=== PATIENT | male | born 1945 | race Caucasian/White ===

== ENCOUNTER → 2017-12-24 10:08 | Outpatient (CLI) | payer MEDICARE, SELFPAY ==
--- NOTE | 2017-12-24 | DI.CT.S_ITS ---
PROCEDURE: CT CHEST ABD PEL W CON INDICATIONS: ABNORMAL WEIGHT LOSS TECHNIQUE: After the administration of oral and intravenous contrast, 5 mm thick sections acquired from the lung apices to the symphysis. 5 mm coronal and sagittal reformats were performed, with additional 7 mm coronal MIP reformats through the lungs. For radiation dose reduction, the following was used: automated exposure control, adjustment of mA and/or kV according to patient size. COMPARISON: [facility], CT, ABDOMEN/PELVIS WITH CONTRAST, 11/21/2011, 13:02. [facility], CT, ABDOMEN/PELVIS WITH CONTRAST, 11/14/2011, 7:01. [facility], CR, THORACIC SPINE 3 VIEWS, 12/23/2011, 10:32. FINDINGS: Image quality: Excellent. CHEST: Lungs and pleura: No acute airspace opacities. No pleural effusions or pneumothorax. Central and peripheral airways appear patent and normal in caliber. Mediastinum: Heart size is normal. No pericardial effusion. No mediastinal or hilar adenopathy by size criteria. Thoracic aorta and central pulmonary arteries are normal in size. Esophagus is normal in caliber. No hiatal hernia. Chest wall: No axillary or supraclavicular adenopathy by size criteria. Thyroid gland appears normal where well visualized. Areas of spinal vertebral body sclerosis seen by CT scanning is little if any change from the areas of sclerosis seen by plain film imaging of the thoracic spine from 12/23/11. ABDOMEN: Solid organs: Liver is normal in size and enhancement. Gallbladder appears normal. Biliary system is non dilated. Pancreas enhances normally. Spleen is normal in size and enhancement. No adrenal nodules. Kidneys demonstrate normal size and enhancement, without hydronephrosis. Peritoneum and bowel: Bowel loops demonstrate normal wall thickness and caliber. No free fluid or air. Nodes and vessels: No retroperitoneal or mesenteric adenopathy by size criteria. Aorta and inferior vena cava are normal in size. Miscellaneous: No ventral hernias. Scattered areas of sclerosis within the lumbosacral spine vertebral bodies are little if any changed from the comparison abdominal pelvic CT scanning from PELVIS: Genitourinary: Bladder wall thickness is normal. Miscellaneous: No inguinal hernias or adenopathy. Bones: No new suspicious bony lesions. The areas of vertebral body sclerosis at the lumbosacral junction is stable over time with reference to prior CT scanning. No vertebral body compression fractures. IMPRESSION: The thoracic, lumbosacral spine and thoracolumbar junction show unusually dense areas of sclerosis but in a pattern that is little if any change from prior plain film and CT scanning that include the same areas from 2012. Previously successfully treated neoplasm might produce such an appearance. Please correlate clinically for whether prostate carcinoma is present in this patient. Followup by nuclear medicine bone scanning may be warranted. Elsewhere through the chest, abdomen and pelvis no primary or metastatic malignancy is suspected. No chronic infection is found. Dictated by: Akshat Mercado M.D. on 12/24/2017 at 16:16 Approved by: Akshat Mercado M.D. on 12/24/2017 at 16:28
== END ==
PROVIDERS: Visit Provider Internal Medicine
DX: R63.4 Abnormal weight loss (principal)
CPT/HCPCS: 71260; 74177; Q9967

== ENCOUNTER 2018-01-30 05:45 | Emergency (ER) | payer MEDICARE, SELFPAY ==
[2018-01-30] VITALS (7 sets, daily range): BP systolic 97–141; BP diastolic 59–74; PULSE 61–69; RESP 16–24; TEMP 36.6–36.8; O2SAT 93–100
--- NOTE | 2018-01-30 06:07 | DI.RAD.S_ITS ---
PROCEDURE: XR CHEST 1V INDICATIONS: decreased mental status from baseline, dementia hx TECHNIQUE: One view of the chest was acquired. COMPARISON: [facility], CT, CT CHEST ABD PEL W CON, 12/24/2017, 10:50. [facility], CR, CHEST 2 VIEW, 11/29/2015, 9:09. [facility], CR, CHEST 2 VIEW, 04/08/2017, 18:39. FINDINGS: Surgical changes and devices: None. Lungs and pleura: Shallow inspiration. Left basilar opacity may be pneumonia or atelectasis. No pleural effusions or pneumothorax. Mediastinum: Mediastinal contours appear normal. Heart size is normal. Bones and chest wall: No suspicious bony lesions. Overlying soft tissues appear unremarkable. Bilateral shoulder joint degeneration. Superior migration of humeral heads bilaterally suggest rotator cuff tendon tears. IMPRESSION: Left basilar pneumonia or atelectasis. Dictated by: Luann Contreras M.D. on 01/30/2018 at 8:24 Approved by: Luann Contreras M.D. on 01/30/2018 at 8:25
--- NOTE | 2018-01-30 06:07 | DI.CT.S_ITS ---
PROCEDURE: CT HEAD/BRAIN WO CON INDICATIONS: decreased mental status from baseline, dementia hx TECHNIQUE: Noncontrast 4.5 mm thick angled axial sections acquired from the foramen magnum to the vertex, with coronal and sagittal reformats. For radiation dose reduction, the following was used: automated exposure control, adjustment of mA and/or kV according to patient size. COMPARISON: [facility], MR, BRAIN WITHOUT CONTRAST, 08/04/2017, 14:14. [facility], CT, HEAD WITHOUT CONTRAST, 04/08/2017, 6:02. FINDINGS: Image quality: Excellent. CSF spaces: Basal cisterns are patent. No extra-axial fluid collections. The ventricles are symmetric in size and shape. Brain: No intracranial bleeds or masses. There is cerebral volume loss for age, with resultant ventricular and sulcal prominence. There are periventricular and deep white matter chronic small vessel ischemic changes. There is intracranial internal carotid artery atherosclerosis. Skull and face: Calvarium and visualized facial bones appear intact, without suspicious lesions. Sinuses: Mucosal thickening noted in the visualized right maxillary sinus. The mastoids are clear. IMPRESSION: No acute intracranial disease process. Dictated by: Mel Melara MD, PhD on 01/30/2018 at 7:49 Approved by: Mel Melara MD, PhD on 01/30/2018 at 7:53
--- NOTE | 2018-01-30 06:38 | ED.AMS ---
HPI - Altered Mental Status <Maliha Wilson Ilanjovany, DO - Last Filed: 02/02/18 21:20> General Chief Complaint: Altered Mental Status Stated Complaint: Mental Status Change Time Seen by Provider: 01/30/18 05:50 Source: patient and family Mode of arrival: EMS Limitations: altered mental status History of Present Illness HPI narrative: this is a 72-year-old male brought in by his for altered mental status. Patient has a history of baseline dementia according to his he is worse than normal. patient's states it has been about 48 hr, she states that he mostly will say no and not participate in his normal activities. Typically she can get up and walk to the bathroom or into the bedroom. Patient continually says no here in the department and she states at home. No fevers that she is aware of. He has not had any complaints that his nausea, vomiting no GI or urinary symptoms. has not had any other complaints such as difficulty breathing. states she does not think he has particularly more weak but it is difficult for her to tell. Related Data Home Medications Medication Instructions Recorded Confirmed MULTIVITAMIN (#UNI-STRESS) 1 cap PO QDAY #0 11/14/11 12/22/17 simvastatin 40 mg PO HS #0 11/14/11 01/30/18 tamsulosin [Flomax] 0.4 mg PO QDAY #0 11/14/11 01/30/18 melatonin 3 mg PO HS #0 07/15/17 12/22/17 thiamine HCl (vitamin B1) [Vitamin 100 mg PO QDAY #0 07/15/17 12/22/17 B-1] ascorbic acid (vitamin C) 500 mg mg PO cap 11/03/17 12/22/17 capsule cholecalciferol (vitamin D3) 1,000 1,000 unit PO DAILY 11/03/17 12/22/17 unit capsule lutein 20 mg tablet 20 mg PO DAILY 11/03/17 12/22/17 vitamin B complex tablet 1 tab PO DAILY 11/03/17 12/22/17 mirtazapine 30 mg PO DAILY 01/30/18 01/30/18 risperidone 2 mg PO DAILY 01/30/18 01/30/18 Previous Rx's Medication Instructions Recorded escitalopram 20 mg tablet 20 mg PO DAILY #30 tab 01/13/18 quetiapine 100 mg tablet 100 mg PO BEDTIME 30 Days #30 tab 01/13/18 venlafaxine ER 150 mg 150 mg PO DAILY #30 cap 01/23/18 capsule,extended release 24 hr venlafaxine ER 37.5 mg 37.5 mg PO QAM #18 cap 01/23/18 capsule,extended release 24 hr levofloxacin [Levaquin] 500 mg PO DAILY #7 tab 01/30/18 Allergies Allergy/AdvReac Type Severity Reaction Status Date / Time No Known Drug Allergies Allergy Verified 01/30/18 06:04 Exam <Maliha Candelaria, DO - Last Filed: 02/02/18 21:20> Narrative Exam Narrative: GEN: well nourished, well appearing male, alert and oriented x 3, patient appears to be in moderate distress. Patient can tell me his name that he is at the hospital and in [place], says no to everything else even questions that are not yes/no. HEENT: Atraumatic, pupils are equal round reactive to light, extraocular movements are intact, nares are clear, Throat is clear without any exudates, erythema, tonsillar enlargement or uvular deviation, no facial droop,. HEART: Regular rate and rhythm without murmur, clicks, rubs. No carotid bruits, pulses are equal in upper and lower extremities LUNGS:Lungs clear to auscultation, no wheezes, rales, crackles, chest moves symmetrically ABD:bowel sounds normal, soft, non-tender, no guarding, rebound, rigidity, no masses noted, no hepatosplenomegaly :No CVA tenderness MSCL: Non-tender, positive for b/l upper and lower extremity muscle atrophy, pill rolling tremor. NEURO:CN 2-12 intact, sensation normal, reflexes 2/4 upper and lower extremities. Initial Vital Signs Initial Vital Signs: Vital Signs Temperature 97.9 F 01/30/18 05:59 Pulse Rate 65 01/30/18 05:59 Respiratory Rate 18 01/30/18 05:59 Blood Pressure 130/66 01/30/18 05:59 Pulse Oximetry 93 01/30/18 05:59 <Madeline Larkin DO - Last Filed: 01/30/18 19:27> Initial Vital Signs Initial Vital Signs: Vital Signs Temperature 97.9 F 01/30/18 05:59 Pulse Rate 65 01/30/18 05:59 Respiratory Rate 18 01/30/18 05:59 Blood Pressure 130/66 01/30/18 05:59 Pulse Oximetry 93 01/30/18 05:59 Course <Maliha Candelaria, - Last Filed: 02/02/18 21:20> Orders Ordered: Discontinued Medications Escitalopram Oxalate (Lexapro) 10 mg PO NOW ONE Stop: 01/30/18 09:26 Last Admin: 01/30/18 10:43 Dose: 10 mg Sodium Chloride (Normal Saline 0.9%) 1,000 mls @ 1,000 mls/hr IV BOLUS ONE Stop: 01/30/18 08:50 Last Infusion: 01/30/18 09:40 Dose: 0 mls/hr Admin: 01/30/18 08:01 Dose: 1,000 mls/hr Lorazepam (Ativan) 0.5 mg IV NOW ONE Stop: 01/30/18 07:36 Last Admin: 01/30/18 07:49 Dose: 0.5 mg Venlafaxine HCl (Effexor) 37.5 mg PO NOW ONE Stop: 01/30/18 09:26 Last Admin: 01/30/18 10:43 Dose: 37.5 mg Vital Signs - 8 hr 01/30/18 12:15 Blood Pressure [Left Arm] 105/74 <Madeline Larkin DO - Last Filed: 01/30/18 19:27> Orders Ordered: Discontinued Medications Escitalopram Oxalate (Lexapro) 10 mg PO NOW ONE Stop: 01/30/18 09:26 Last Admin: 01/30/18 10:43 Dose: 10 mg Sodium Chloride (Normal Saline 0.9%) 1,000 mls @ 1,000 mls/hr IV BOLUS ONE Stop: 01/30/18 08:50 Last Infusion: 01/30/18 09:40 Dose: 0 mls/hr Admin: 01/30/18 08:01 Dose: 1,000 mls/hr Lorazepam (Ativan) 0.5 mg IV NOW ONE Stop: 01/30/18 07:36 Last Admin: 01/30/18 07:49 Dose: 0.5 mg Venlafaxine HCl (Effexor) 37.5 mg PO NOW ONE Stop: 01/30/18 09:26 Last Admin: 09/28/18 10:43 Dose: 37.5 mg Vital Signs - 8 hr 01/30/18 12:15 Blood Pressure [Left Arm] 105/74 MDM - Altered Mental Status <Maliha Candelaria DO - Last Filed: 02/02/18 21:20> Lab Data Result diagrams: 01/30/18 06:30 01/30/18 06:30 Lab Results 01/30/18 01/30/18 01/30/18 Range/Units 06:08 06:30 06:30 WBC 8.0 (4.5-11.0) X10^3/uL RBC 5.02 (4.5-5.9) X10^6/uL Hgb 17.3 (13.5-17.5) g/dL Hct 50.1 (41-53) % MCV 99.7 (80-100) fL MCH 34.4 H (26-34) PG MCHC 34.5 (30-36) % RDW 14.6 (11.6-14.8) % Plt Count 223 (150-400) X10^3/uL Neut % (Auto) 63.3 (50-75) % Lymph % (Auto) 25.7 (25-40) % Powell % (Auto) 7.2 (3-14) % Eos % (Auto) 3.3 (2-4) % Baso % (Auto) 0.5 (0-2) % Neut # (Auto) 5000 (9960-5809) /uL PT 13.1 H (10.1-12.7) SECONDS INR 1.2 (0.9-1.3) APTT 36 (26.4-36.2) SECONDS Sodium (137-145) mmol/L Potassium (3.4-5.1) mmol/L Chloride (98-107) mmol/L Carbon Dioxide (22-32) mmol/L BUN (9-20) mg/dL Creatinine (0.66-1.25) mg/dL Estimated GFR (>60) mL/min BUN/Creatinine Ratio (6-22) Glucose (80-110) mg/dL Lactate (0.7-2.1) mmol/L Calcium (8.4-10.2) mg/dL Total Bilirubin (0.2-1.3) mg/dL AST (17-59) IU/L ALT (21-72) IU/L Alkaline Phosphatase (38-126) U/L Troponin I (0.01-0.034) ng/mL Total Protein (6.3-8.2) g/dL Albumin (3.5-5.0) g/dL Globulin (1.7-4.1) g/dL Albumin/Globulin Ratio (1.0-2.8) TSH 2.08 (0.47-4.68) uIU/mL 01/30/18 01/30/18 Range/Units 06:30 08:22 WBC (4.5-11.0) X10^3/uL RBC (4.5-5.9) X10^6/uL Hgb (13.5-17.5) g/dL Hct (41-53) % MCV (80-100) fL MCH (26-34) PG MCHC (30-36) % RDW (11.6-14.8) % Plt Count (150-400) X10^3/uL Neut % (Auto) (50-75) % Lymph % (Auto) (25-40) % Powell % (Auto) (3-14) % Eos % (Auto) (2-4) % Baso % (Auto) (0-2) % Neut # (Auto) (2063-5292) /uL PT (10.1-12.7) SECONDS INR (0.9-1.3) APTT (26.4-36.2) SECONDS Sodium 142 (137-145) mmol/L Potassium 4.5 (3.4-5.1) mmol/L Chloride 104 (98-107) mmol/L Carbon Dioxide 28 (22-32) mmol/L BUN 15 (9-20) mg/dL Creatinine 0.90 (0.66-1.25) mg/dL Estimated GFR > 60.0 (>60) mL/min BUN/Creatinine Ratio 16.7 (6-22) Glucose 96 (80-110) mg/dL Lactate 1.5 (0.7-2.1) mmol/L Calcium 9.5 (8.4-10.2) mg/dL Total Bilirubin 0.5 (0.2-1.3) mg/dL AST 31 (17-59) IU/L ALT 23 (21-72) IU/L Alkaline Phosphatase 84 (38-126) U/L Troponin I < 0.012 (0.01-0.034) ng/mL Total Protein 7.8 (6.3-8.2) g/dL Albumin 4.6 (3.5-5.0) g/dL Globulin 3.2 (1.7-4.1) g/dL Albumin/Globulin Ratio 1.4 (1.0-2.8) TSH (0.47-4.68) uIU/mL Urine Dip Bedside Urine Glucose Negative Bedside Urine Bilirubin - Negative Bedside Urine Ketone +/- 5 Urine Specific Neche 1.020 Bedside Urine Occult Blood - Negative Bedside Urine pH 7.0 Bedside Urine Protein - Negative Bedside Urine Urobilinogen - Negative Bedside Urine Nitrite - Negative Bedside Urine Leukocytes - Negative Esterase Imaging Data CT scan - head: Radiologist's impression: cortical atrophy which is diffuse. No ventriculomegaly. No midline structure shift, extra-axial fluid collections, parenchymal mass lesions or hemorrhage. There is mucoid 0 periosteal thickening in the right maxillary sinus and a tiny retention cyst /polyp. There is calcified plaque within the internal carotid arteries consistent with atherosclerosis <Madeline Larkin, - Last Filed: 01/30/18 19:27> Lab Data Attestation: I reviewed the patient's lab results. Lab Results 01/30/18 01/30/18 01/30/18 Range/Units 06:08 06:30 06:30 WBC 8.0 (4.5-11.0) X10^3/uL RBC 5.02 (4.5-5.9) X10^6/uL Hgb 17.3 (13.5-17.5) g/dL Hct 50.1 (41-53) % MCV 99.7 (80-100) fL MCH 34.4 H (26-34) PG MCHC 34.5 (30-36) % RDW 14.6 (11.6-14.8) % Plt Count 223 (150-400) X10^3/uL Neut % (Auto) 63.3 (50-75) % Lymph % (Auto) 25.7 (25-40) % Powell % (Auto) 7.2 (3-14) % Eos % (Auto) 3.3 (2-4) % Baso % (Auto) 0.5 (0-2) % Neut # (Auto) 5000 (7083-7685) /uL PT 13.1 H (10.1-12.7) SECONDS INR 1.2 (0.9-1.3) APTT 36 (26.4-36.2) SECONDS Sodium (137-145) mmol/L Potassium (3.4-5.1) mmol/L Chloride (98-107) mmol/L Carbon Dioxide (22-32) mmol/L BUN (9-20) mg/dL Creatinine (0.66-1.25) mg/dL Estimated GFR (>60) mL/min BUN/Creatinine Ratio (6-22) Glucose (80-110) mg/dL Lactate (0.7-2.1) mmol/L Calcium (8.4-10.2) mg/dL Total Bilirubin (0.2-1.3) mg/dL AST (17-59) IU/L ALT (21-72) IU/L Alkaline Phosphatase (38-126) U/L Troponin I (0.01-0.034) ng/mL Total Protein (6.3-8.2) g/dL Albumin (3.5-5.0) g/dL Globulin (1.7-4.1) g/dL Albumin/Globulin Ratio (1.0-2.8) TSH 2.08 (0.47-4.68) uIU/mL 01/30/18 01/30/18 Range/Units 06:30 08:22 WBC (4.5-11.0) X10^3/uL RBC (4.5-5.9) X10^6/uL Hgb (13.5-17.5) g/dL Hct (41-53) % MCV (80-100) fL MCH (26-34) PG MCHC (30-36) % RDW (11.6-14.8) % Plt Count (150-400) X10^3/uL Neut % (Auto) (50-75) % Lymph % (Auto) (25-40) % Powell % (Auto) (3-14) % Eos % (Auto) (2-4) % Baso % (Auto) (0-2) % Neut # (Auto) (3144-8287) /uL PT (10.1-12.7) SECONDS INR (0.9-1.3) APTT (26.4-36.2) SECONDS Sodium 142 (137-145) mmol/L Potassium 4.5 (3.4-5.1) mmol/L Chloride 104 (98-107) mmol/L Carbon Dioxide 28 (22-32) mmol/L BUN 15 (9-20) mg/dL Creatinine 0.90 (0.66-1.25) mg/dL Estimated GFR > 60.0 (>60) mL/min BUN/Creatinine Ratio 16.7 (6-22) Glucose 96 (80-110) mg/dL Lactate 1.5 (0.7-2.1) mmol/L Calcium 9.5 (8.4-10.2) mg/dL Total Bilirubin 0.5 (0.2-1.3) mg/dL AST 31 (17-59) IU/L ALT 23 (21-72) IU/L Alkaline Phosphatase 84 (38-126) U/L Troponin I < 0.012 (0.01-0.034) ng/mL Total Protein 7.8 (6.3-8.2) g/dL Albumin 4.6 (3.5-5.0) g/dL Globulin 3.2 (1.7-4.1) g/dL Albumin/Globulin Ratio 1.4 (1.0-2.8) TSH (0.47-4.68) uIU/mL Urine Dip Bedside Urine Glucose Negative Bedside Urine Bilirubin - Negative Bedside Urine Ketone +/- 5 Urine Specific Neche 1.020 Bedside Urine Occult Blood - Negative Bedside Urine pH 7.0 Bedside Urine Protein - Negative Bedside Urine Urobilinogen - Negative Bedside Urine Nitrite - Negative Bedside Urine Leukocytes - Negative Esterase MDM Narrative Medical decision making narrative: Patient is signed out to me by Dr. Candelaria at shift change. I have seen and evaluated patient myself. He shaking slightly diaphoretic. Blood work and urine within normal limits. He has been afebrile. Ativan has been ordered to help with his tremors. Will check lactic acid blood cultures and give IV fluids. Dr. Martinez has called possibly medication reaction. Patient received Ativan which significantly helped. He was seen evaluated by physical therapy he required minimal assistance. I did talk with Dr. Martinez who recommended is that he trying be placed at [facility] she thinks a lot of this is depression on possibly he is not tolerating this which of medications. Patient denies suicidal ideations. His still short did find a bed at [facility] however patient and patient's wanted to go home and declined the bed at [facility]. At this time he is voluntary and does not meet involuntary criteria. Dr. Martinez made aware of these attempts. She will see him in the clinic. He does not appear septic or toxic. Home health care arrangements have been made be a social work. Discharge Plan Departure Patient Disposition: Home Clinical Impression: Pneumonia Discharge Date/Time: 01/30/18 12:05 Interventions: ED Discharge Assessment Last Done: 01/30/18 12:16 Instructions: DI for Pneumonia -- Adult Activity Restrictions/Additional Instructions: *You have been diagnosed with pneumonia *What to do: Symptoms may be related to medication change and possible pneumonia *Continue to take medications as directed Levaquin 500 mg once a day for 7 days-faxed to [id number] *Follow up with your primary care provider in 2-3 days *Return to ER if you should have increased mental status changes, shaking or any new, worsening or concerning symptoms Prescriptions: New levofloxacin [Levaquin] 500 mg tablet 500 mg PO DAILY Qty: 7 RF: 0 No Action vitamin B complex [B Complex-Vitamin B12] tablet 1 tab PO DAILY RF: 0 ascorbic acid (vitamin C) 500 mg capsule PO RF: 0 cholecalciferol (vitamin D3) 1,000 unit capsule 1,000 unit PO DAILY RF: 0 lutein 20 mg tablet 20 mg PO DAILY RF: 0 tamsulosin [Flomax] 0.4 MG capsule,extended release 24hr 0.4 mg PO QDAY Qty: 0 RF: 0 MULTIVITAMIN (#UNI-STRESS) 1 cap PO QDAY Qty: 0 RF: 0 simvastatin 40 MG tablet 40 mg PO HS Qty: 0 RF: 0 melatonin 3 MG tablet 3 mg PO HS Qty: 0 RF: 0 thiamine HCl (vitamin B1) [Vitamin B-1] 50 MG tablet 100 mg PO QDAY Qty: 0 RF: 0 escitalopram oxalate 20 mg tablet 20 mg PO DAILY Qty: 30 RF: 2 quetiapine 100 mg tablet 100 mg PO BEDTIME 30 Days Qty: 30 RF: 2 venlafaxine 37.5 mg capsule,extended release 24hr 37.5 mg PO QAM Qty: 18 RF: 0 venlafaxine 150 mg capsule,extended release 24hr 150 mg PO DAILY Qty: 30 RF: 2 risperidone 2 mg tablet 2 mg PO DAILY RF: 0 mirtazapine 30 mg tablet 30 mg PO DAILY RF: 0 Referrals: Alex Cartwright MD [Primary Care Provider] -
[2018-01-30 06:39] LABS: Add Manual Diff / Slide Review NO; Basophils Percent Auto 0.5 % (0-2); Eosinophils Percent Auto 3.3 % (2-4); Hematocrit 50.1 % (41-53); Hemoglobin 17.3 g/dL (13.5-17.5); Lymphocytes Percent Auto 25.7 % (25-40); Mean Corpuscular HGB Conc 34.5 % (30-36); Mean Corpuscular Hemoglobin 34.4 PG (26-34); Mean Corpuscular Volume 99.7 fL (80-100); Monocytes Percent Auto 7.2 % (3-14); Neutrophils Absolute Auto 5000 /uL (3000-5900); Neutrophils Percent Auto 63.3 % (50-75); Platelet Count 223 X10^3/uL (150-400); Red Blood Cell Count 5.02 X10^6/uL (4.5-5.9); Red Cell Distribution Width 14.6 % (11.6-14.8)
--- NOTE | 2018-01-30 06:41 | ED_ITS ---
HPI - Altered Mental Status <Maliha Wilson Ilanjovany, DO - Last Filed: 02/02/18 21:20> General Chief Complaint: Altered Mental Status Stated Complaint: Mental Status Change Time Seen by Provider: 01/30/18 05:50 Source: patient and family Mode of arrival: EMS Limitations: altered mental status History of Present Illness HPI narrative: this is a 72-year-old male brought in by his for altered mental status. Patient has a history of baseline dementia according to his he is worse than normal. patient's states it has been about 48 hr, she states that he mostly will say no and not participate in his normal activities. Typically she can get up and walk to the bathroom or into the bedroom. Patient continually says no here in the department and she states at home. No fevers that she is aware of. He has not had any complaints that his nausea, vomiting no GI or urinary symptoms. has not had any other complaints such as difficulty breathing. states she does not think he has particularly more weak but it is difficult for her to tell. Related Data Home Medications Medication Instructions Recorded Confirmed MULTIVITAMIN (#UNI-STRESS) 1 cap PO QDAY #0 11/14/11 12/22/17 simvastatin 40 mg PO HS #0 11/14/11 01/30/18 tamsulosin [Flomax] 0.4 mg PO QDAY #0 11/14/11 01/30/18 melatonin 3 mg PO HS #0 07/15/17 12/22/17 thiamine HCl (vitamin B1) [Vitamin 100 mg PO QDAY #0 07/15/17 12/22/17 B-1] ascorbic acid (vitamin C) 500 mg mg PO cap 11/03/17 12/22/17 capsule cholecalciferol (vitamin D3) 1,000 1,000 unit PO DAILY 11/03/17 12/22/17 unit capsule lutein 20 mg tablet 20 mg PO DAILY 11/03/17 12/22/17 vitamin B complex tablet 1 tab PO DAILY 11/03/17 12/22/17 mirtazapine 30 mg PO DAILY 01/30/18 01/30/18 risperidone 2 mg PO DAILY 01/30/18 01/30/18 Previous Rx's Medication Instructions Recorded escitalopram 20 mg tablet 20 mg PO DAILY #30 tab 01/13/18 quetiapine 100 mg tablet 100 mg PO BEDTIME 30 Days #30 tab 01/13/18 venlafaxine ER 150 mg 150 mg PO DAILY #30 cap 01/23/18 capsule,extended release 24 hr venlafaxine ER 37.5 mg 37.5 mg PO QAM #18 cap 01/23/18 capsule,extended release 24 hr levofloxacin [Levaquin] 500 mg PO DAILY #7 tab 01/30/18 Allergies Allergy/AdvReac Type Severity Reaction Status Date / Time No Known Drug Allergies Allergy Verified 01/30/18 06:04 Exam <Maliha Candelaria, DO - Last Filed: 02/02/18 21:20> Narrative Exam Narrative: GEN: well nourished, well appearing male, alert and oriented x 3, patient appears to be in moderate distress. Patient can tell me his name that he is at the hospital and in [employer], says no to everything else even questions that are not yes/no. HEENT: Atraumatic, pupils are equal round reactive to light, extraocular movements are intact, nares are clear, Throat is clear without any exudates, erythema, tonsillar enlargement or uvular deviation, no facial droop,. HEART: Regular rate and rhythm without murmur, clicks, rubs. No carotid bruits , pulses are equal in upper and lower extremities LUNGS:Lungs clear to auscultation, no wheezes, rales, crackles, chest moves symmetrically ABD:bowel sounds normal, soft, non-tender, no guarding, rebound, rigidity, no masses noted, no hepatosplenomegaly :No CVA tenderness MSCL: Non-tender, positive for b/l upper and lower extremity muscle atrophy, pill rolling tremor. NEURO:CN 2-12 intact, sensation normal, reflexes 2/4 upper and lower extremities. Initial Vital Signs Initial Vital Signs: Vital Signs Temperature 97.9 F 01/30/18 05:59 Pulse Rate 65 01/30/18 05:59 Respiratory Rate 18 01/30/18 05:59 Blood Pressure 130/66 01/30/18 05:59 Pulse Oximetry 93 01/30/18 05:59 <Madeline Larkin DO - Last Filed: 01/30/18 19:27> Initial Vital Signs Initial Vital Signs: Vital Signs Temperature 97.9 F 01/30/18 05:59 Pulse Rate 65 01/30/18 05:59 Respiratory Rate 18 01/30/18 05:59 Blood Pressure 130/66 01/30/18 05:59 Pulse Oximetry 93 01/30/18 05:59 Course <Maliha Candelaria, - Last Filed: 02/02/18 21:20> Orders Ordered: Discontinued Medications Escitalopram Oxalate (Lexapro) 10 mg PO NOW ONE Stop: 01/30/18 09:26 Last Admin: 01/30/18 10:43 Dose: 10 mg Sodium Chloride (Normal Saline 0.9%) 1,000 mls @ 1,000 mls/hr IV BOLUS ONE Stop: 01/30/18 08:50 Last Infusion: 01/30/18 09:40 Dose: 0 mls/hr Admin: 01/30/18 08:01 Dose: 1,000 mls/hr Lorazepam (Ativan) 0.5 mg IV NOW ONE Stop: 01/30/18 07:36 Last Admin: 01/30/18 07:49 Dose: 0.5 mg Venlafaxine HCl (Effexor) 37.5 mg PO NOW ONE Stop: 01/30/18 09:26 Last Admin: 01/30/18 10:43 Dose: 37.5 mg Vital Signs - 8 hr 01/30/18 12:15 Blood Pressure [Left Arm] 105/74 <Madeline Larkin DO - Last Filed: 01/30/18 19:27> Orders Ordered: Discontinued Medications Escitalopram Oxalate (Lexapro) 10 mg PO NOW ONE Stop: 01/30/18 09:26 Last Admin: 01/30/18 10:43 Dose: 10 mg Sodium Chloride (Normal Saline 0.9%) 1,000 mls @ 1,000 mls/hr IV BOLUS ONE Stop: 01/30/18 08:50 Last Infusion: 01/30/18 09:40 Dose: 0 mls/hr Admin: 01/30/18 08:01 Dose: 1,000 mls/hr Lorazepam (Ativan) 0.5 mg IV NOW ONE Stop: 01/30/18 07:36 Last Admin: 01/30/18 07:49 Dose: 0.5 mg Venlafaxine HCl (Effexor) 37.5 mg PO NOW ONE Stop: 01/30/18 09:26 Last Admin: 09/28/18 10:43 Dose: 37.5 mg Vital Signs - 8 hr 01/30/18 12:15 Blood Pressure [Left Arm] 105/74 MDM - Altered Mental Status <Maliha Candelaria DO - Last Filed: 02/02/18 21:20> Lab Data Result diagrams: 01/30/18 06:30 01/30/18 06:30 Lab Results 01/30/18 01/30/18 01/30/18 Range/Units 06:08 06:30 06:30 WBC 8.0 (4.5-11.0) X10^3/uL RBC 5.02 (4.5-5.9) X10^6/uL Hgb 17.3 (13.5-17.5) g/dL Hct 50.1 (41-53) % MCV 99.7 (80-100) fL MCH 34.4 H (26-34) PG MCHC 34.5 (30-36) % RDW 14.6 (11.6-14.8) % Plt Count 223 (150-400) X10^3/uL Neut % (Auto) 63.3 (50-75) % Lymph % (Auto) 25.7 (25-40) % [place] % (Auto) 7.2 (3-14) % Eos % (Auto) 3.3 (2-4) % Baso % (Auto) 0.5 (0-2) % Neut # (Auto) 5000 (2840-6553) /uL PT 13.1 H (10.1-12.7) SECONDS INR 1.2 (0.9-1.3) APTT 36 (26.4-36.2) SECONDS Sodium (137-145) mmol/L Potassium (3.4-5.1) mmol/L Chloride (98-107) mmol/L Carbon Dioxide (22-32) mmol/L BUN (9-20) mg/dL Creatinine (0.66-1.25) mg/dL Estimated GFR (>60) mL/min BUN/Creatinine Ratio (6-22) Glucose (80-110) mg/dL Lactate (0.7-2.1) mmol/L Calcium (8.4-10.2) mg/dL Total Bilirubin (0.2-1.3) mg/dL AST (17-59) IU/L ALT (21-72) IU/L Alkaline Phosphatase (38-126) U/L Troponin I (0.01-0.034) ng/mL Total Protein (6.3-8.2) g/dL Albumin (3.5-5.0) g/dL Globulin (1.7-4.1) g/dL Albumin/Globulin Ratio (1.0-2.8) TSH 2.08 (0.47-4.68) uIU/mL 01/30/18 01/30/18 Range/Units 06:30 08:22 WBC (4.5-11.0) X10^3/uL RBC (4.5-5.9) X10^6/uL Hgb (13.5-17.5) g/dL Hct (41-53) % MCV (80-100) fL MCH (26-34) PG MCHC (30-36) % RDW (11.6-14.8) % Plt Count (150-400) X10^3/uL Neut % (Auto) (50-75) % Lymph % (Auto) (25-40) % [place] % (Auto) (3-14) % Eos % (Auto) (2-4) % Baso % (Auto) (0-2) % Neut # (Auto) (7322-8816) /uL PT (10.1-12.7) SECONDS INR (0.9-1.3) APTT (26.4-36.2) SECONDS Sodium 142 (137-145) mmol/L Potassium 4.5 (3.4-5.1) mmol/L Chloride 104 (98-107) mmol/L Carbon Dioxide 28 (22-32) mmol/L BUN 15 (9-20) mg/dL Creatinine 0.90 (0.66-1.25) mg/dL Estimated GFR > 60.0 (>60) mL/min BUN/Creatinine Ratio 16.7 (6-22) Glucose 96 (80-110) mg/dL Lactate 1.5 (0.7-2.1) mmol/L Calcium 9.5 (8.4-10.2) mg/dL Total Bilirubin 0.5 (0.2-1.3) mg/dL AST 31 (17-59) IU/L ALT 23 (21-72) IU/L Alkaline Phosphatase 84 (38-126) U/L Troponin I < 0.012 (0.01-0.034) ng/mL Total Protein 7.8 (6.3-8.2) g/dL Albumin 4.6 (3.5-5.0) g/dL Globulin 3.2 (1.7-4.1) g/dL Albumin/Globulin Ratio 1.4 (1.0-2.8) TSH (0.47-4.68) uIU/mL Urine Dip Bedside Urine Glucose Negative Bedside Urine Bilirubin - Negative Bedside Urine Ketone +/- 5 Urine Specific [place] 1.020 Bedside Urine Occult Blood - Negative Bedside Urine pH 7.0 Bedside Urine Protein - Negative Bedside Urine Urobilinogen - Negative Bedside Urine Nitrite - Negative Bedside Urine Leukocytes - Negative Esterase Imaging Data CT scan - head: Radiologist's impression: cortical atrophy which is diffuse. No ventriculomegaly. No midline structure shift, extra-axial fluid collections, parenchymal mass lesions or hemorrhage. There is mucoid 0 periosteal thickening in the right maxillary sinus and a tiny retention cyst /polyp. There is calcified plaque within the internal carotid arteries consistent with atherosclerosis <Madeline Larkin, - Last Filed: 01/30/18 19:27> Lab Data Attestation: I reviewed the patient's lab results. Lab Results 01/30/18 01/30/18 01/30/18 Range/Units 06:08 06:30 06:30 WBC 8.0 (4.5-11.0) X10^3/uL RBC 5.02 (4.5-5.9) X10^6/uL Hgb 17.3 (13.5-17.5) g/dL Hct 50.1 (41-53) % MCV 99.7 (80-100) fL MCH 34.4 H (26-34) PG MCHC 34.5 (30-36) % RDW 14.6 (11.6-14.8) % Plt Count 223 (150-400) X10^3/uL Neut % (Auto) 63.3 (50-75) % Lymph % (Auto) 25.7 (25-40) % [place] % (Auto) 7.2 (3-14) % Eos % (Auto) 3.3 (2-4) % Baso % (Auto) 0.5 (0-2) % Neut # (Auto) 5000 (5481-3732) /uL PT 13.1 H (10.1-12.7) SECONDS INR 1.2 (0.9-1.3) APTT 36 (26.4-36.2) SECONDS Sodium (137-145) mmol/L Potassium (3.4-5.1) mmol/L Chloride (98-107) mmol/L Carbon Dioxide (22-32) mmol/L BUN (9-20) mg/dL Creatinine (0.66-1.25) mg/dL Estimated GFR (>60) mL/min BUN/Creatinine Ratio (6-22) Glucose (80-110) mg/dL Lactate (0.7-2.1) mmol/L Calcium (8.4-10.2) mg/dL Total Bilirubin (0.2-1.3) mg/dL AST (17-59) IU/L ALT (21-72) IU/L Alkaline Phosphatase (38-126) U/L Troponin I (0.01-0.034) ng/mL Total Protein (6.3-8.2) g/dL Albumin (3.5-5.0) g/dL Globulin (1.7-4.1) g/dL Albumin/Globulin Ratio (1.0-2.8) TSH 2.08 (0.47-4.68) uIU/mL 01/30/18 01/30/18 Range/Units 06:30 08:22 WBC (4.5-11.0) X10^3/uL RBC (4.5-5.9) X10^6/uL Hgb (13.5-17.5) g/dL Hct (41-53) % MCV (80-100) fL MCH (26-34) PG MCHC (30-36) % RDW (11.6-14.8) % Plt Count (150-400) X10^3/uL Neut % (Auto) (50-75) % Lymph % (Auto) (25-40) % [place] % (Auto) (3-14) % Eos % (Auto) (2-4) % Baso % (Auto) (0-2) % Neut # (Auto) (7805-8988) /uL PT (10.1-12.7) SECONDS INR (0.9-1.3) APTT (26.4-36.2) SECONDS Sodium 142 (137-145) mmol/L Potassium 4.5 (3.4-5.1) mmol/L Chloride 104 (98-107) mmol/L Carbon Dioxide 28 (22-32) mmol/L BUN 15 (9-20) mg/dL Creatinine 0.90 (0.66-1.25) mg/dL Estimated GFR > 60.0 (>60) mL/min BUN/Creatinine Ratio 16.7 (6-22) Glucose 96 (80-110) mg/dL Lactate 1.5 (0.7-2.1) mmol/L Calcium 9.5 (8.4-10.2) mg/dL Total Bilirubin 0.5 (0.2-1.3) mg/dL AST 31 (17-59) IU/L ALT 23 (21-72) IU/L Alkaline Phosphatase 84 (38-126) U/L Troponin I < 0.012 (0.01-0.034) ng/mL Total Protein 7.8 (6.3-8.2) g/dL Albumin 4.6 (3.5-5.0) g/dL Globulin 3.2 (1.7-4.1) g/dL Albumin/Globulin Ratio 1.4 (1.0-2.8) TSH (0.47-4.68) uIU/mL Urine Dip Bedside Urine Glucose Negative Bedside Urine Bilirubin - Negative Bedside Urine Ketone +/- 5 Urine Specific [place] 1.020 Bedside Urine Occult Blood - Negative Bedside Urine pH 7.0 Bedside Urine Protein - Negative Bedside Urine Urobilinogen - Negative Bedside Urine Nitrite - Negative Bedside Urine Leukocytes - Negative Esterase MDM Narrative Medical decision making narrative: Patient is signed out to me by Dr. Candelaria at shift change. I have seen and evaluated patient myself. He shaking slightly diaphoretic. Blood work and urine within normal limits. He has been afebrile. Ativan has been ordered to help with his tremors. Will check lactic acid blood cultures and give IV fluids. Dr. Martinez has called possibly medication reaction. Patient received Ativan which significantly helped. He was seen evaluated by physical therapy he required minimal assistance. I did talk with Dr. Martinez who recommended is that he trying be placed at [facility] she thinks a lot of this is depression on possibly he is not tolerating this which of medications. Patient denies suicidal ideations. His still short did find a bed at [facility] however patient and patient's wanted to go home and declined the bed at [facility]. At this time he is voluntary and does not meet involuntary criteria. Dr. Martinez made aware of these attempts. She will see him in the clinic. He does not appear septic or toxic. Home health care arrangements have been made be a social work. Discharge Plan Departure Patient Disposition: Home Clinical Impression: Pneumonia Discharge Date/Time: 01/30/18 12:05 Interventions: ED Discharge Assessment Last Done: 01/30/18 12:16 Instructions: DI for Pneumonia -- Adult Activity Restrictions/Additional Instructions: *You have been diagnosed with pneumonia *What to do: Symptoms may be related to medication change and possible pneumonia *Continue to take medications as directed Levaquin 500 mg once a day for 7 days-faxed to [facility] *Follow up with your primary care provider in 2-3 days *Return to ER if you should have increased mental status changes, shaking or any new, worsening or concerning symptoms Prescriptions: New levofloxacin [Levaquin] 500 mg tablet 500 mg PO DAILY Qty: 7 RF: 0 No Action vitamin B complex [B Complex-Vitamin B12] tablet 1 tab PO DAILY RF: 0 ascorbic acid (vitamin C) 500 mg capsule PO RF: 0 cholecalciferol (vitamin D3) 1,000 unit capsule 1,000 unit PO DAILY RF: 0 lutein 20 mg tablet 20 mg PO DAILY RF: 0 tamsulosin [Flomax] 0.4 MG capsule,extended release 24hr 0.4 mg PO QDAY Qty: 0 RF: 0 MULTIVITAMIN (#UNI-STRESS) 1 cap PO QDAY Qty: 0 RF: 0 simvastatin 40 MG tablet 40 mg PO HS Qty: 0 RF: 0 melatonin 3 MG tablet 3 mg PO HS Qty: 0 RF: 0 thiamine HCl (vitamin B1) [Vitamin B-1] 50 MG tablet 100 mg PO QDAY Qty: 0 RF: 0 escitalopram oxalate 20 mg tablet 20 mg PO DAILY Qty: 30 RF: 2 quetiapine 100 mg tablet 100 mg PO BEDTIME 30 Days Qty: 30 RF: 2 venlafaxine 37.5 mg capsule,extended release 24hr 37.5 mg PO QAM Qty: 18 RF: 0 venlafaxine 150 mg capsule,extended release 24hr 150 mg PO DAILY Qty: 30 RF: 2 risperidone 2 mg tablet 2 mg PO DAILY RF: 0 mirtazapine 30 mg tablet 30 mg PO DAILY RF: 0 Referrals: Alex Cartwright MD [Primary Care Provider] -
[2018-01-30 06:45] LABS: INR 1.2 (0.9-1.3); Prothrombin Time 13.1 SECONDS (10.1-12.7)
[2018-01-30 06:47] LABS: PTT Partial Thromboplastin Tim 36 SECONDS (26.4-36.2)
[2018-01-30 06:49] LABS: Alanine Aminotransferase 23 IU/L (21-72); Albumin 4.6 g/dL (3.5-5.0); Albumin Globulin Ratio 1.4 (1.0-2.8); Alkaline Phosphatase 84 U/L (38-126); Aspartate Aminotransferase 31 IU/L (17-59); BUN Creatinine Ratio 16.7 (6-22); Bilirubin Total 0.5 mg/dL (0.2-1.3); Blood Urea Nitrogen 15 mg/dL (9-20); Calcium 9.5 mg/dL (8.4-10.2); Carbon Dioxide 28 mmol/L (22-32); Chloride 104 mmol/L (98-107); Estimated Glomerular Filt Rate > 60.0 mL/min (>60); Globulin 3.2 g/dL (1.7-4.1); Glucose 96 mg/dL (80-110); HEMOLYSIS < 15 (0-50); Potassium 4.5 mmol/L (3.4-5.1); Sodium 142 mmol/L (137-145); Total Protein 7.8 g/dL (6.3-8.2)
[2018-01-30 07:03] LABS: Troponin I < 0.012 ng/mL (0.01-0.034)
[2018-01-30] MEDS: LORazepam 2 MG/ML SYRINGE 0.5 MG IV (07:49)
[2018-01-30] MEDS: SODIUM CHLORIDE 0.9% 1,000 ML 1000 ML IV (08:01)
[2018-01-30 08:46] LABS: Lactate (Lactic Acid) 1.5 mmol/L (0.7-2.1)
--- NOTE | 2018-01-30 09:45 | PT.IIE ---
Physical Therapy Inpatient Evaluation/Re-Eval M1 PT/OT-IP Prior Functional Status Start: 01/30/18 13:37 Freq: Status: Active Protocol: Document 01/30/18 09:45 AB (Rec: 01/30/18 13:56 AB [id number]) Medical Review Prior Functional Status Medical History Reviewed Yes Communication able to make needs known Mobility and Gait spouse stated that pt is modified independent with all mobilities and ambulation without AD Social History Household Members spouse Living Arrangements House Number of Floors (Floors) One Floor Number of Stairs To Enter/Railing? 2 platform steps to enter Home Environment High Toilet Walk in Shower Built-In Shower Seat Home Equipment Front Wheel Walker Employment Status Retired M2 PT-IP Current Condition Start: 01/30/18 13:37 Freq: Status: Active Protocol: Document 01/30/18 09:45 AB (Rec: 01/30/18 13:56 AB [id number]) Physical Therapy Current Condition Current Condition Evaluation Date 01/30/18 Treatment Diagnosis mental status change; difficulty in walking Onset Date 01/30/18 Precautions Other Precautions falls M3 PT-IP Subjective Start: 01/30/18 13:37 Freq: Status: Active Protocol: Document 01/30/18 09:45 AB (Rec: 01/30/18 13:56 AB [id number]) Subjective Physical Therapy Visit Type Type Initial Evaluation Visit Start Time 09:45 Visit Stop Time 10:15 Total Visit Minutes 30 Number of CYBER INCIDENT RESPONDER Visits 0 Physical Therapy Visit Comments Patient Comments i feel better Therapy Pain Assessment Pain Present Pain Present Denied Pain M4 PT-IP Mobility and Gait Start: 01/30/18 13:37 Freq: Status: Active Protocol: Document 01/30/18 09:45 AB (Rec: 01/30/18 13:56 AB [id number]) PT-Bed Mobility Assessment Supine to Sit Supine to Sit Standby Assistance Bed Transfer Assessment Specific Evaluation Sit to Stand Bed Transfer Ability 1 Person Assist Comments Factors Limiting Bed Transfer Decreased Strength Poor Safety Awareness Poor Balance Bed Transfer Comments pt completed sit to stand from EOB requiring CGA but with LOB during initially standing requiring min A dn cues to repostion and rebalance. Gait Assessment Gait Gait Assistance Required: Contact Guard Assist Distance (Feet) 75 Able to Maintain Weight Bearing Status Yes During Gait Assistive Devices Assistive Device Gait Belt Front Wheeled Walker Gait Deviations General Gait Pattern Decreased Stride Length Decreased Feet Clearance Factors Limiting Gait Function Factors Limiting Gait Function Decreased Activity Tolerance Decreased Strength Poor Balance Poor Safety Awareness Comments Gait Comments assessed pt's ambulation without AD ~ 20 ft but pt requiring min A and with unsteady gait. Assessed pt's ambulation using FWW and completed ambulation SBA ~ 75 ft. Stair Climbing Assessment Evaluation Level of Assist On Stairs Minimal Assistance Technique/Endurance Stair Climbing Direction Ascend and Descend Stair Climbing Technique Step to Step Number of Steps Climbed 1 Query Text: Stair Climbing Set # Repetitions (reps) 2 Comments Stair Climbing Comments recommending pt to use 4WW at this time for ambulation and spouse agreed. PT-Balance Assessment Sitting Balance and Reactions Static Sitting Balance Ability Good Dynamic Sitting Balance Ability Good Standing Balance and Reactions Static Standing Balance Ability Poor Dynamic Standing Balance Ability Poor Device Used without AD M5 PT-IP Objective Assessments Start: 01/30/18 13:37 Freq: Status: Active Protocol: Document 01/30/18 09:45 AB (Rec: 01/30/18 13:56 AB [id number]) Orientation Orientation/Cognition Level of Alertness Alert Orientation Name Safety Awareness Decreased Safety Awareness Memory Description Short Term Impaired Fdc Impaired Gross Range of Motion Lower Extremity ROM Assessment Within Functional Limits Strength Lower Extremity Strength Assessment Within Functional Limits M6 PT-IP Treatment Start: 01/30/18 13:37 Freq: Status: Active Protocol: Document 01/30/18 09:45 AB (Rec: 01/30/18 13:56 AB [id number]) Physical Therapy Treatment Education Education Provided Safety M7 PT-IP Assessment and Plan Start: 01/30/18 13:37 Freq: Status: Active Protocol: Document 01/30/18 09:45 AB (Rec: 01/30/18 13:56 AB [id number]) PT Summary Assessment and Plan Potential Rehabilitation Potential Fair Status of Condition at Evaluation Stable Summary Impairments Balance Cognition Bed Mobility Transfers Gait Activity Tolerance Assessment Summary PT eval received to assess pt in the ER for safety with d/c to home. spouse stated that pt is in the midst of having his medication change and has refused to take his meds last night. pt came in to the ER for mental status change. pt requiring CGA with ambulation using FWW and min A with stair climbing at this time. spouse stated that she can assist pt and they have a FWW and can assist pt at home. pt will be safe to go home with 24/7 assist. Goals Bed Mobility Goal Standby Assistance Transfer Goal Standby Assistance Gait Goal Standby Assistance Gait Distance 100 Other Goals up/down 1 step using FWW CGA Days to Meet Goals 3 Frequency of Treatment Frequency Of Treatment Once a Day Treatment Plan Physical Therapy Treatment Plan Bed Mobility Training Transfer Training Gait Training Therapeutic Exercise Balance Retraining Discharge Planning Neuromuscular Re-ed Coordination Retraining Manual Therapy Recommendations To Nursing Amount of Assist Needed 1 Person Assist Discharge Recommendations PT Discharge Recommendations Home with 24/7 Assist
--- NOTE | 2018-01-30 10:07 | PC.NURSE ---
Iv infiltrated with saline. Patient's arm wrapped in warm compress and elevated for comfort. Trae DO aware and she reports he does not need a new IV, can receive PO fluids.
[2018-01-30 10:12] LABS: Thyroid Stimulating Hormone 2.08 uIU/mL (0.47-4.68)
[2018-01-30] MEDS: VENLAFAXINE 37.5 MG TABLET PO (10:43)
[2018-01-30] MEDS: ESCITALOPRAM 10 MG TABLET PO (10:43)
--- NOTE | 2018-01-31 11:07 | CM.SWNOTE ---
Late Entry: Requested by Madeline, ED provider to attempt bed at [facility] for this gentleman, who, per Dr Martinez, would benefit from a geropsych inpt stay. Zachary had been brought in by Shari for acute mental status changes. TC to [facility] P# [phone] F# [phone], spoke to admissions, they had a bed yesterday. This [employer] SALES ASSOCIATE supplied a few details about Zachary's presentation to the ED and the recommendation by psychiatrist for stabilization at inpt psych unit. Agreed to fax clinical documentation and the pending consult by Dr Martinez yesterday. Notified Madeline re: above and learned that Shari preferred to take Zachary home w/HH. PT Duyen had assessed in the ER and felt Zachary was safe for a return home w/assist from his . This [employer] E[employer] SALES ASSOCIATE met briefly w/Shari, provided Medicare choice list for HH agencies, no preference. Unable to complete HH referral until this morning, 01.31.18. Confirmed w/Shari two things this morning: that she still wanted HH for Zachary and had no agency preference. Then placed call to Carolin at [facility], gave referral. Carolin confirmed that RN could respond either tomorrow or Friday. Faxed facesheet, signed F2F, HH order, and clinical documentation to [facility] at F# [phone]. Called Shari again to relay information above from [facility]. Shari appreciative. BREE Chávez
== END 2018-01-30 12:05 | disposition home or self-care (01) ==
PROVIDERS: Emergency Medicine; Emergency Provider Emergency Medicine; PCP Internal Medicine
DX: J18.9 Pneumonia, unspecified organism (principal)
CPT/HCPCS: 36415; 36591; 70450; 71045; 80053; 81003; 83605; 84443; 84484; 85025; 85610; 85730; 87040; 93005; 96361; 96374; 97161; 99283; 99285; J2060

== ENCOUNTER → 2019-01-29 16:06 | Outpatient (ROUT) | payer MEDICARE, SELFPAY ==
[2019-01-29 16:59] LABS: TSH w/ Reflex to FT4 2.95 uIU/mL (0.47-4.68)
== END ==
PROVIDERS: PCP Internal Medicine; Visit Provider Internal Medicine
DX: F06.2 Psychotic disorder with delusions due to known physiological condition (principal)
CPT/HCPCS: 84443

== ENCOUNTER → 2019-10-15 19:25 | Outpatient (ROUT) | payer MEDICARE, SELFPAY ==
[2019-10-15 19:37] LABS: Add Manual Diff / Slide Review NO; Basophils Absolute Auto 0 /uL (0-100); Basophils Percent Auto 0.7 % (0-2); Eosinophils Absolute Auto 300 /uL (0-450); Eosinophils Percent Auto 4.8 % (2-4); Hematocrit 47.6 % (41-53); Hemoglobin 16.1 g/dL (13.5-17.5); Lymphocytes Absolute Auto 1800 /uL (1100-4500); Lymphocytes Percent Auto 29.7 % (25-40); Mean Corpuscular HGB Conc 33.7 % (30-36); Mean Corpuscular Hemoglobin 33.6 PG (26-34); Mean Corpuscular Volume 99.6 fL (80-100); Monocytes Absolute Auto 500 /uL (0-900); Monocytes Percent Auto 7.5 % (3-14); Neutrophils Absolute Auto 3500 /uL (1500-7000); Neutrophils Percent Auto 57.3 % (50-75); Platelet Count 237 X10^3/uL (150-400); Red Blood Cell Count 4.78 X10^6/uL (4.5-5.9); Red Cell Distribution Width 14.1 % (11.6-14.8); White Blood Cell Count 6.2 X10^3/uL (4.5-11.0)
[2019-10-15 19:51] LABS: Hemoglobin A1C% w Est Avg Glu 5.8 % (4.0-6.0)
[2019-10-15 19:53] LABS: Alanine Aminotransferase 16 IU/L (<50); Albumin 4.3 g/dL (3.5-5.0); Albumin Globulin Ratio 1.3 (1.0-2.8); Alkaline Phosphatase 96 U/L (38-126); Aspartate Aminotransferase 30 IU/L (17-59); BUN Creatinine Ratio 23.4 (6-22); Bilirubin Total 0.3 mg/dL (0.2-1.3); Blood Urea Nitrogen 22 mg/dL (9-20); Calcium 9.7 mg/dL (8.4-10.2); Carbon Dioxide 30 mmol/L (22-32); Chloride 100 mmol/L (98-107); Cholesterol 182 mg/dL (140-199); Estimated Glomerular Filt Rate > 60.0 mL/min (>60); Globulin 3.2 g/dL (1.7-4.1); Glucose 74 mg/dL (80-110); HDL Cholesterol 37 mg/dL (40-60); HEMOLYSIS < 15 (0-50); LDL Cholesterol Calculated 102 mg/dL (<100); Potassium 4.3 mmol/L (3.4-5.1); Sodium 139 mmol/L (137-145); Total Protein 7.5 g/dL (6.3-8.2); Triglycerides 215 mg/dL (35-150)
[2019-10-15 20:23] LABS: TSH w/ Reflex to FT4 2.64 uIU/mL (0.47-4.68)
[2019-10-15 20:41] LABS: Vitamin B12 895 pg/mL (239-931)
[2019-10-19 13:13] LABS: Albumin 3.6 g/dL (2.9-4.4); Alpha-1-Globulin 0.2 g/dL (0.0-0.4); Alpha-2-Globulin 0.9 g/dL (0.4-1.0); Protein, Total 6.6 g/dL (6.0-8.5)
== END ==
PROVIDERS: PCP Internal Medicine; Visit Provider Internal Medicine
DX: D47.2 Monoclonal gammopathy (principal); E53.8 Deficiency of other specified B group vitamins; E03.9 Hypothyroidism, unspecified; I95.1 Orthostatic hypotension; E78.2 Mixed hyperlipidemia; R73.01 Impaired fasting glucose
CPT/HCPCS: 80053; 80061; 82607; 83036; 84155; 84165; 84443; 85025

== ENCOUNTER → 2019-12-01 08:29 | Outpatient (CLI) | payer MEDICARE, SELFPAY ==
[2019-12-01 09:47] LABS: Add Manual Diff / Slide Review NO; Basophils Absolute Auto 100 /uL (0-100); Basophils Percent Auto 0.9 % (0-2); Eosinophils Absolute Auto 400 /uL (0-450); Eosinophils Percent Auto 6.8 % (2-4); Hematocrit 45.5 % (41-53); Hemoglobin 15.2 g/dL (13.5-17.5); Lymphocytes Absolute Auto 1600 /uL (1100-4500); Lymphocytes Percent Auto 28.3 % (25-40); Mean Corpuscular HGB Conc 33.4 % (30-36); Mean Corpuscular Hemoglobin 33.2 PG (26-34); Mean Corpuscular Volume 99.7 fL (80-100); Monocytes Absolute Auto 500 /uL (0-900); Monocytes Percent Auto 8.3 % (3-14); Neutrophils Absolute Auto 3200 /uL (1500-7000); Neutrophils Percent Auto 55.7 % (50-75); Platelet Count 203 X10^3/uL (150-400); Red Blood Cell Count 4.56 X10^6/uL (4.5-5.9); Red Cell Distribution Width 14.5 % (11.6-14.8); White Blood Cell Count 5.8 X10^3/uL (4.5-11.0)
[2019-12-01 10:07] LABS: Alanine Aminotransferase 18 IU/L (<50); Albumin Globulin Ratio 1.5 (1.0-2.8); Alkaline Phosphatase 77 U/L (38-126); Aspartate Aminotransferase 32 IU/L (17-59); BUN Creatinine Ratio 28.4 (6-22); Bilirubin Total 0.5 mg/dL (0.2-1.3); Blood Urea Nitrogen 23 mg/dL (9-20); Calcium 9.4 mg/dL (8.4-10.2); Carbon Dioxide 30 mmol/L (22-32); Chloride 104 mmol/L (98-107); Estimated Glomerular Filt Rate > 60.0 mL/min (>60); Globulin 2.6 g/dL (1.7-4.1); Glucose 94 mg/dL (80-110); HEMOLYSIS < 15 (0-50); Potassium 4.5 mmol/L (3.4-5.1); Sodium 140 mmol/L (137-145); Total Protein 6.6 g/dL (6.3-8.2)
[2019-12-02 04:39] LABS: Valproic Acid (Depakene) Total 24 ug/mL (50-100)
== END ==
PROVIDERS: PCP Internal Medicine; Referring Provider Psychiatry & Neurology Psychiatry; Visit Provider Psychiatry & Neurology Psychiatry
DX: F33.1 Major depressive disorder, recurrent, moderate (principal); R44.0 Auditory hallucinations; Z51.81 Encounter for therapeutic drug level monitoring
CPT/HCPCS: 36415; 80053; 80164; 85025

== ENCOUNTER 2020-07-31 19:31 | Observation (INO) | payer MEDICARE, SELFPAY ==
[2020-07-31] VITALS (19 sets, daily range): BP systolic 94–146; BP diastolic 56–79; PULSE 63–82; RESP 13–22; TEMP 36.6; O2SAT 92–97
--- NOTE | 2020-07-31 19:35 | DI.CT.S_ITS ---
PROCEDURE: CT STROKE INDICATIONS: stroke TECHNIQUE: Noncontrast 4.5 mm thick angled axial sections acquired from the foramen magnum to the vertex, with coronal reformats. For radiation dose reduction, the following was used: automated exposure control, adjustment of mA and/or kV according to patient size. COMPARISON: None. FINDINGS: Image quality: Excellent. CSF spaces: Basal cisterns are patent. No extra-axial fluid collections. The ventricles are symmetric in size and shape. Brain: No intracranial bleeds or masses. There is cerebral volume loss for age, with resultant ventricular and sulcal prominence. There are periventricular and deep white matter chronic small vessel ischemic changes. There is intracranial internal carotid artery atherosclerosis. Skull and face: Calvarium and visualized facial bones appear intact, without suspicious lesions. Sinuses: Small right maxillary sinus polyps, chronic. Bilateral maxillary sinus antrostomies. Mild mucosal thickening of the ethmoid air cells. Visualized sinuses and mastoids are otherwise clear. IMPRESSION: 1. No CT evidence of acute intracranial process. Age-appropriate exam. 2. Chronic changes of chronic sinus disease and prior surgery. 3. Findings called to the emergency room provider at 19:55 hours. This study fulfills neurological imaging criteria for inclusion or exclusion of acute stroke therapies based on available published neurological guidelines. Dictated by: Jaki Rodriguez M.D. on 07/31/2020 at 19:51 Approved by: Jaki Rodriguez M.D. on 07/31/2020 at 19:57
--- NOTE | 2020-07-31 19:37 | DI.CT.S_ITS ---
PROCEDURE: CT ANGIO HEAD AND NECK INDICATIONS: stroke TECHNIQUE: After the administration of intravenous contrast, 1 mm thick sections acquired from the aortic arch through the [place] of Sims. Post-contrast 4.5 mm thick sections then re-acquired from the foramen magnum to the vertex. 3-dimensional qblrdra-lpizomong-jqqoffxdch (MIP) and/or volume rendering reformats were acquired of the central intracranial vasculature and neck separately. COMPARISON: None. FINDINGS: Image quality: Excellent. BRAIN: CSF spaces: Ventricles are normal in size and shape. Basal cisterns are patent. No extra-axial fluid collections. Brain: No midline shift. No intracranial bleeds or masses. Weiss-white matter interface appears intact. Postcontrast, there are no suspicious enhancing lesions. Skull and face: Calvarium and facial bones appear intact, without suspicious lesions. Orbits appear normal. Sinuses: Sinuses and mastoids are clear. HEAD CT ANGIOGRAPHY: Anterior circulation: Intracranial internal carotid arteries are normal in size and flow. Mild atherosclerotic calcification of the intracranial internal carotid arteries. The flow within the paired anterior cerebral arteries is normal and symmetric. The flow within the middle cerebral arteries is normal and symmetric. The anterior communicating artery is seen. No aneurysms are seen. Posterior circulation: Visualized portions of the vertebral arteries demonstrate normal caliber, and join to form a normal appearing basilar artery. Flow within the posterior cerebral arteries is normal and symmetric. No aneurysms are seen. NECK CT ANGIOGRAPHY: Carotid system: The great vessels demonstrate a conventional anatomy as they arise from the aortic arch. The origins of the common carotid arteries appear patent. The common carotid arteries demonstrate normal caliber and courses. Mild calcification at both carotid bulbs causing less than 50% stenosis bilaterally. . The internal carotid arteries demonstrate normal calibers and courses. Posterior circulation: The origins of the vertebral arteries both appear widely patent. The more superior extracranial portions of both vertebral arteries also demonstrate normal courses and calibers. They join to form a normal appearing basilar artery. Soft tissues: Visualized neck soft tissues demonstrate no suspicious abnormalities. Bones: No suspicious bony lesions. Severe degenerative changes of the cervical spine and chronic appearing T5 vertebral body wedge deformity. Visualized cervical spine appears normally aligned. IMPRESSION: 1. Mild bilateral carotid calcification at the bulbs causing less than 50% stenosis. 2. There is mild atherosclerosis of the intracranial internal carotid arteries but without flow limiting stenosis or occlusion. 3. No intracranial vascular occlusion or aneurysm. Any quantitative measurements of stenosis were performed using NASCET criteria. Dictated by: Jaki Rodriguez M.D. on 07/31/2020 at 21:02 Approved by: Jaki Rodriguez M.D. on 07/31/2020 at 21:12
[2020-07-31 19:46] LABS: Add Manual Diff / Slide Review NO; Basophils Absolute Auto 100 /uL (0-100); Eosinophils Absolute Auto 200 /uL (0-450); Eosinophils Percent Auto 3.3 % (2-4); Hematocrit 46.2 % (41-53); Hemoglobin 15.3 g/dL (13.5-17.5); Lymphocytes Absolute Auto 2300 /uL (1100-4500); Lymphocytes Percent Auto 33.3 % (25-40); Mean Corpuscular HGB Conc 33.2 % (30-36); Mean Corpuscular Hemoglobin 33.9 PG (26-34); Mean Corpuscular Volume 102.2 fL (80-100); Monocytes Absolute Auto 500 /uL (0-900); Monocytes Percent Auto 7.5 % (3-14); Neutrophils Absolute Auto 3800 /uL (1500-7000); Neutrophils Percent Auto 54.9 % (50-75); Platelet Count 211 X10^3/uL (150-400); Red Blood Cell Count 4.52 X10^6/uL (4.5-5.9); Red Cell Distribution Width 14.2 % (11.6-14.8); White Blood Cell Count 6.9 X10^3/uL (4.5-11.0)
--- NOTE | 2020-07-31 19:47 | ED_ITS ---
HPI - Altered Mental Status General Chief Complaint: Neuro Symptoms/Deficit Stated Complaint: Code stroke Time Seen by Provider: 07/31/20 19:32 Source: patient, family and EMS Mode of arrival: EMS Limitations: altered mental status History of Present Illness HPI narrative: 75-year-old male former smoker, former drinker with history of depression, alcohol use disorder in sustained remission, history of neuro cognit ashish disorder presents by EMS as a code stroke. He was activated as a code stroke and taken directly to CT scan on arrival. He was in his normal state of health which is active, ambulatory, conversive and articulate over the course of the day and was last seen normal at 2:30 p.m.. He laid down to take a nap and at 4:30 p.m. he awoke and was found by his to be in the state that he is on his arrival which is confused, slurring words, facial droop, complaining of tingling and weakness of his arm. He has had no fever chills and denies any recent injury. He has had no use of drugs or alcohol. His arrival was 5 hours since last known well and he was outside TPA window from the onset. joined us early and confirmed timing as well as description of significant departure from baseline. states patient is DNR, PCP is Dr. Cartwright Related Data Home Medications Medication Instructions Recorded Confirmed MULTIVITAMIN (#UNI-STRESS) 1 cap PO QDAY #0 11/14/11 07/18/20 simvastatin 40 mg PO HS #0 11/14/11 07/31/20 melatonin 3 mg PO HS #0 07/15/17 07/18/20 ascorbic acid (vitamin C) 500 mg mg PO cap 11/03/17 07/18/20 capsule cholecalciferol (vitamin D3) 25 1,000 unit PO DAILY 11/03/17 07/18/20 mcg (1,000 unit) capsule calcium carbonate 600 mg calcium 600 mg PO DAILY 12/15/19 07/18/20 (1,500 mg) tablet vitamin B complex 1 cap PO DAILY 12/15/19 07/18/20 vitamin E (dl, acetate) 450 mg 1,000 unit PO DAILY 12/15/19 07/18/20 (1,000 unit) capsule Previous Rx's Medication Instructions Recorded quetiapine 200 mg tablet 100 mg PO BID #30 tab 06/28/20 divalproex 250 mg tablet,delayed See Rx Instructions PO .COMPLEX 07/10/20 release #90 tab lorazepam 0.5 mg tablet 0.5 mg PO TID PRN #90 tab 07/11/20 venlafaxine 150 mg 300 mg PO QAM #60 cap 07/31/20 capsule,extended release 24 hr Allergies Allergy/AdvReac Type Severity Reaction Status Date / Time No Known Drug Allergies Allergy Verified 07/31/20 20:13 Review of Systems Review of Systems ROS Unobtainable: Unobtainable due to mental status/LOC Patient History Social History household members: spouse Smoking Status: Former smoker (quit in 2018) Smoking Status: Former smoker (quit in 2017) Exam Narrative Exam Narrative: GENERAL: [75] year old patient appears stated age. Well- nourished, well-developed patient, in obvious distress. GCS 13 HEAD: Atraumatic. Normocephalic. EYES: Pupils equal round and reactive. Extraocular motions intact. No scleral icterus. No injection or drainage. ENT: Nose without bleeding, purulent drainage. Throat without erythema, tonsillar hypertrophy or exudate. Airway patent. NECK: Trachea midline. Non tender CARDIOVASCULAR: Regular rate and rhythm without murmurs, gallops, or rubs. RESPIRATORY: Clear to auscultation. Breath sounds equal bilaterally. No wheezes, rales, or rhonchi. GASTROINTESTINAL: Abdomen soft, non-tender, nondistended. EXTREMITIES: No edema or joint tenderness. BACK: Nontender without deformity or crepitance. No flank tenderness. NEURO: Awake, alert, slow to respond SKIN: No rash or erythema of visible areas Initial Vital Signs Initial Vital Signs: Vital Signs Temperature 97.8 F 07/31/20 19:45 Pulse Rate 77 07/31/20 19:45 Respiratory Rate 18 07/31/20 19:45 Blood Pressure 140/73 07/31/20 19:45 Pulse Oximetry 97 07/31/20 19:45 Scores NIH Stroke Scale Level of Conciousness: Not alert, but arousable by minor stim to obey, answer or respond Ask month/age: Answers one question correctly, intubated follow commands Open/close eyes, close hand: Performs both tasks correctly Best gaze horizontal: Normal Visual montoya: No visual loss Facial palsy: Minor paralysis, flattened nasolabial fold, asymmetry on smiling Left arm drift: No drift for full 10 sec Right arm drift: Drifts down, not to bed Left leg drift: No drift for full 5 sec Right leg drift: Some effort against gravity, cannot maintain, drifts down to bed Limb ataxia: Absent Sensory on face/arms/legs: Mild to moderate sensory loss, can tell touch Best language: Severe aphasia, not much is understood, fragmented Dysarthria: Mild to mod,some slurring Extinction or inattention: No abnormality Total NIH Stroke scale score: 10 Course Course Course Narrative: #187: Stroke & Stroke Rehabilitation: Thrombolytic Therapy [] The patient, who arrived at the hospital within 2 hours of time last known w ell, was diagnosed with subacute or acute ischemic stroke. IV t-PA was initiated within 3 hours of time last known well. [SATISFIES MIPS PERFORMANCE] [] The patient was diagnosed with subacute or acute ischemic stroke. IV t-PA was not initiated within 3 hours of last known well due to [select]: [MIPS PERFORMANCE EXCEPTION/EXCLUSION] [x] Patient arrived more than 4.5 hours after last known well time, or the time last known well is unknown [] Patient has a medical contra-indication or reason for not administering [] (ex. neurologist does not believe t-PA is appropriate, active internal bleeding, serious head trauma, acute current or history of intracranial hemorrhage, uncontrollable hypertension, seizure at onset of stroke, CVA in last 3 months, Intracranial or intraspinal surgery in last 3 months, bleeding disorder, thrombocytopenia < 100,000, early radiographic ischemic changes on head CT, INR > 1.7, intracranial neoplasm, AVM, or aneurysm, patient in stroke trial, patient admitted for elective carotid intervention) []Patient or family declined IV t-PA [] The patient, who arrived at the hospital within 2 hours of time last known well, was diagnosed with subacute or acute ischemic stroke. IV t-PA was not initiated within 3 hours of time last known well. [DOES NOT SATISFY MIPS PERFORMANCE] Orders Ordered: ED Orders 07/31/20 19:35 CT Stroke Stat 07/31/20 19:37 CT angio head and neck Stat EKG-12 Lead Stat 07/31/20 19:38 Basic Metabolic Panel Stat Complete Blood Count AUTO DIFF Stat Partial Thromboplastin Time Stat Prothrombin Time INR Stat 07/31/20 19:45 COVID19 - ADMIT ([employer] swab/PCR) Stat 07/31/20 19:54 Urinalysis and Microscopic Stat Urine Drug Screen, Rapid Stat Acetaminophen (Acetaminophen 325 Mg Tablet) 650 mg PO Q6HR PRN PRN Reason: Pain, Mild (1-3) Aspirin (Aspirin Ec 325 Mg Tablet) 325 mg PO DAILY [facility] Atorvastatin Calcium (Atorvastatin 20 Mg Tablet) 80 mg PO BEDTIME [facility] Clopidogrel Bisulfate (Clopidogrel 75 Mg Tablet) 75 mg PO DAILY [facility] Docusate Sodium (Docusate 100 Mg Capsule) 100 mg PO BID [facility] Sodium Chloride (Normal Saline 0.9%) 1,000 mls @ 150 mls/hr IV CONT [facility] Last Admin: 07/31/20 20:00 Dose: 150 mls/hr Documented by: RSTONE Sodium Chloride (Normal Saline 0.9%) 1,000 mls @ 60 mls/hr IV CONT [facility] Naloxone HCl (Naloxone 0.4 Mg/Ml Vial) 0.2 mg IV Q2MIN PRN PRN Reason: Opiate Reversal Sennosides (Sennosides 8.6 Mg Tablet) 17.2 mg PO BEDTIME [facility] Vital Signs Vital signs: Vital Signs - 8 hr 07/31/20 19:45 07/31/20 19:51 07/31/20 20:00 Temperature 97.8 F Pulse Rate 77 75 82 Respiratory Rate 18 22 Blood Pressure 140/73 146/79 H Pulse Oximetry 97 97 97 07/31/20 20:15 07/31/20 20:30 07/31/20 20:45 Temperature Pulse Rate 74 69 69 Respiratory Rate 14 14 14 Blood Pressure 111/62 Pulse Oximetry 92 95 95 07/31/20 21:00 07/31/20 21:15 07/31/20 21:16 Temperature Pulse Rate 67 69 68 Respiratory Rate 14 13 14 Blood Pressure 94/58 L 113/64 Pulse Oximetry 95 95 96 07/31/20 21:30 07/31/20 21:45 07/31/20 22:00 Temperature Pulse Rate 66 66 64 Respiratory Rate 14 13 14 Blood Pressure 103/59 L 99/56 L Pulse Oximetry 96 96 96 07/31/20 22:15 07/31/20 22:30 07/31/20 22:45 Temperature Pulse Rate 64 63 65 Respiratory Rate 14 14 15 Blood Pressure 102/58 L Pulse Oximetry 96 96 97 07/31/20 23:00 Temperature Pulse Rate 64 Respiratory Rate 14 Blood Pressure 108/59 L Pulse Oximetry 96 MDM - Altered Mental Status Lab Data Result diagrams: 07/31/20 19:38 07/31/20 19:38 Labs: Lab Results 07/31/20 07/31/20 07/31/20 Range/Units 19:38 19:38 19:38 WBC 6.9 (4.5-11.0) X10^3/uL RBC 4.52 (4.5-5.9) X10^6/uL Hgb 15.3 (13.5-17.5) g/dL Hct 46.2 (41-53) % MCV 102.2 H (80-100) fL MCH 33.9 (26-34) PG MCHC 33.2 (30-36) % RDW 14.2 (11.6-14.8) % Plt Count 211 (150-400) X10^3/uL Neut % (Auto) 54.9 (50-75) % Lymph % (Auto) 33.3 (25-40) % [place] % (Auto) 7.5 (3-14) % Eos % (Auto) 3.3 (2-4) % Baso % (Auto) 1.0 (0-2) % Neut # (Auto) 3800 (8280-4904) /uL Lymph # (Auto) 2300 (6568-0883) /uL [place] # (Auto) 500 (0-900) /uL Eos # (Auto) 200 (0-450) /uL Baso # (Auto) 100 (0-100) /uL PT 14.6 H (10.1-12.7) SECONDS INR 1.3 (0.9-1.3) APTT 35 (26.4-36.2) SECONDS Sodium 143 (137-145) mmol/L Potassium 3.6 (3.4-5.1) mmol/L Chloride 104 (98-107) mmol/L Carbon Dioxide 33 H (22-32) mmol/L BUN 23 H (9-20) mg/dL Creatinine 0.83 (0.66-1.25) mg/dL Estimated GFR > 60.0 (>60) mL/min BUN/Creatinine Ratio 27.7 H (6-22) Glucose 155 H (80-110) mg/dL Hemoglobin A1c (4.0-6.0) % Calcium 9.4 (8.4-10.2) mg/dL TSH (0.47-4.68) uIU/mL Urine Color Urine Appearance Urine pH (4.5-8.0) Ur Specific [place] (1.000-1.035) Urine Protein (Negative) Urine Glucose (UA) (Negative) g/dL Urine Ketones (NEGATIVE) Urine Occult Blood (Negative) Urine Nitrate (Negative) Urine Bilirubin (NEGATIVE) Urine Urobilinogen (0.2) E.U./dL Ur Leukocyte Esterase (NEGATIVE) Urine RBC (0-5/HPF) Urine WBC (0-5/HPF) Ur Squamous Epith Cells (0-5/HPF) Urine Bacteria (None) Urine Mucus (Negative) Ur Culture Indicated? U Opiates 300ng/mL cut (Negative) Ur Oxycodone Screen (Negative) Urine Methadone Screen (Negative) Ur Barbiturates Screen (Negative) U Tricyclic Antidepress (Negative) Ur Phencyclidine Scrn (Negative) Ur Amphetamines Screen (Negative) U Methamphetamines Scrn (Negative) Ur MDMA Scrn (Ecstasy) (Negative) U Benzodiazepines Scrn (Negative) Urine Cocaine Screen (Negative) U Marijuana (THC) Screen (Negative) SARS-CoV-2 (PCR) (Negative) 07/31/20 07/31/20 07/31/20 Range/Units 19:38 19:38 19:45 WBC (4.5-11.0) X10^3/uL RBC (4.5-5.9) X10^6/uL Hgb (13.5-17.5) g/dL Hct (41-53) % MCV (80-100) fL MCH (26-34) PG MCHC (30-36) % RDW (11.6-14.8) % Plt Count (150-400) X10^3/uL Neut % (Auto) (50-75) % Lymph % (Auto) (25-40) % [place] % (Auto) (3-14) % Eos % (Auto) (2-4) % Baso % (Auto) (0-2) % Neut # (Auto) (5059-6297) /uL Lymph # (Auto) (1241-4241) /uL [place] # (Auto) (0-900) /uL Eos # (Auto) (0-450) /uL Baso # (Auto) (0-100) /uL PT (10.1-12.7) SECONDS INR (0.9-1.3) APTT (26.4-36.2) SECONDS Sodium (137-145) mmol/L Potassium (3.4-5.1) mmol/L Chloride (98-107) mmol/L Carbon Dioxide (22-32) mmol/L BUN (9-20) mg/dL Creatinine (0.66-1.25) mg/dL Estimated GFR (>60) mL/min BUN/Creatinine Ratio (6-22) Glucose (80-110) mg/dL Hemoglobin A1c 5.6 (4.0-6.0) % Calcium (8.4-10.2) mg/dL TSH 1.77 (0.47-4.68) uIU/mL Urine Color Urine Appearance Urine pH (4.5-8.0) Ur Specific [place] (1.000-1.035) Urine Protein (Negative) Urine Glucose (UA) (Negative) g/dL Urine Ketones (NEGATIVE) Urine Occult Blood (Negative) Urine Nitrate (Negative) Urine Bilirubin (NEGATIVE) Urine Urobilinogen (0.2) E.U./dL Ur Leukocyte Esterase (NEGATIVE) Urine RBC (0-5/HPF) Urine WBC (0-5/HPF) Ur Squamous Epith Cells (0-5/HPF) Urine Bacteria (None) Urine Mucus (Negative) Ur Culture Indicated? U Opiates 300ng/mL cut (Negative) Ur Oxycodone Screen (Negative) Urine Methadone Screen (Negative) Ur Barbiturates Screen (Negative) U Tricyclic Antidepress (Negative) Ur Phencyclidine Scrn (Negative) Ur Amphetamines Screen (Negative) U Methamphetamines Scrn (Negative) Ur MDMA Scrn (Ecstasy) (Negative) U Benzodiazepines Scrn (Negative) Urine Cocaine Screen (Negative) U Marijuana (THC) Screen (Negative) SARS-CoV-2 (PCR) Negative (Negative) 07/31/20 07/31/20 Range/Units 19:54 19:54 WBC (4.5-11.0) X10^3/uL RBC (4.5-5.9) X10^6/uL Hgb (13.5-17.5) g/dL Hct (41-53) % MCV (80-100) fL MCH (26-34) PG MCHC (30-36) % RDW (11.6-14.8) % Plt Count (150-400) X10^3/uL Neut % (Auto) (50-75) % Lymph % (Auto) (25-40) % [place] % (Auto) (3-14) % Eos % (Auto) (2-4) % Baso % (Auto) (0-2) % Neut # (Auto) (6440-5571) /uL Lymph # (Auto) (0608-5915) /uL [place] # (Auto) (0-900) /uL Eos # (Auto) (0-450) /uL Baso # (Auto) (0-100) /uL PT (10.1-12.7) SECONDS INR (0.9-1.3) APTT (26.4-36.2) SECONDS Sodium (137-145) mmol/L Potassium (3.4-5.1) mmol/L Chloride (98-107) mmol/L Carbon Dioxide (22-32) mmol/L BUN (9-20) mg/dL Creatinine (0.66-1.25) mg/dL Estimated GFR (>60) mL/min BUN/Creatinine Ratio (6-22) Glucose (80-110) mg/dL Hemoglobin A1c (4.0-6.0) % Calcium (8.4-10.2) mg/dL TSH (0.47-4.68) uIU/mL Urine Color Yellow Urine Appearance Clear Urine pH 5.5 (4.5-8.0) Ur Specific [place] 1.025 (1.000-1.035) Urine Protein Negative (Negative) Urine Glucose (UA) Negative (Negative) g/dL Urine Ketones Negative (NEGATIVE) Urine Occult Blood Negative (Negative) Urine Nitrate Negative (Negative) Urine Bilirubin Negative (NEGATIVE) Urine Urobilinogen 0.2 (0.2) E.U./dL Ur Leukocyte Esterase Negative (NEGATIVE) Urine RBC None seen (0-5/HPF) Urine WBC 0-1/hpf (0-5/HPF) Ur Squamous Epith Cells 0-1 /hpf (0-5/HPF) Urine Bacteria None seen (None) Urine Mucus 1+ H (Negative) Ur Culture Indicated? Cult not indicated U Opiates 300ng/mL cut Negative (Negative) Ur Oxycodone Screen Negative (Negative) Urine Methadone Screen Negative (Negative) Ur Barbiturates Screen Negative (Negative) U Tricyclic Antidepress Positive H (Negative) Ur Phencyclidine Scrn Negative (Negative) Ur Amphetamines Screen Negative (Negative) U Methamphetamines Scrn Negative (Negative) Ur MDMA Scrn (Ecstasy) Negative (Negative) U Benzodiazepines Scrn Negative (Negative) Urine Cocaine Screen Negative (Negative) U Marijuana (THC) Screen Negative (Negative) SARS-CoV-2 (PCR) (Negative) Point of Care Testing Glucose POC [address] scan - head: Radiologist's Impression: Zachary Abdul M [address] [id number] Scan ReportSigned Patient: Zachary Abdul RMR#: [id number]: [id number]:[id number]/Sex: 75 / MDate of Service: 07/31/20Loc: EDAccession Number: [id number] Procedure: CT Stroke Ordering Provider: Bryn Duncan D.O. PROCEDURE: CT STROKE INDICATIONS: stroke TECHNIQUE: Noncontrast 4.5 mm thick angled axial sections acquired from the foramen magnum to the vertex, with coronal reformats. For radiation dose reduction, the following was used: automated exposure control, adjustment of mA and/or kV according to patient size. COMPARISON: None. FINDINGS: Image quality: Excellent. CSF spaces: Basal cisterns are patent. No extra-axial fluid collections. The ventricles are symmetric in size and shape. Brain: No intracranial bleeds or masses. There is cerebral volume loss for age, with resultant ventricular and sulcal prominence. There are periventricular and deep white matter chronic small vessel ischemic changes. There is intracranial internal carotid artery atherosclerosis. Skull and face: Calvarium and visualized facial bones appear intact, without suspicious lesions. Sinuses: Small right maxillary sinus polyps, chronic. Bilateral maxillary sinus antrostomies. Mild mucosal thickening of the ethmoid air cells. Visualized sinuses and mastoids are otherwise clear. IMPRESSION: 1. No CT evidence of acute intracranial process. Age-appropriate exam. 2. Chronic changes of chronic sinus disease and prior surgery. 3. Findings called to the emergency room provider at 19:55 hours. This study fulfills neurological imaging criteria for inclusion or exclusion of acute stroke therapies based on available published neurological guidelines. Dictated by: Jaki Rodriguez M.D. on 07/31/2020 at 19:51 Approved by: Jaki Rodriguez M.D. on 07/31/2020 at 19:57 CTA Head/Neck: Radiologist's Impression: [address] [id number] Scan ReportSigned Patient: Zachary Abdul RMR#: [id number]: [id number]:[id number]/Sex: 75 / MDate of Service: 07/31/20Loc: EDAccession Number: [id number] Procedure: CT angio head and neck Ordering Provider: Bryn Duncan D.O. PROCEDURE: CT ANGIO HEAD AND NECK INDICATIONS: stroke TECHNIQUE: After the administration of intravenous contrast, 1 mm thick sections acquired from the aortic arch through the [place] of Sims. Post-contrast 4.5 mm thick sections then re-acquired from the foramen magnum to the vertex. 3-dimensional yjfkqkj-ntaczzafh-czeidtdnzv (MIP) and/or volume rendering reformats were acquired of the central intracranial vasculature and neck separately. COMPARISON: None. FINDINGS: Image quality: Excellent. BRAIN: CSF spaces: Ventricles are normal in size and shape. Basal cisterns are patent . No extra-axial fluid collections. Brain: No midline shift. No intracranial bleeds or masses. Weiss-white matter interface appears intact. Postcontrast, there are no suspicious enhancing lesions. Skull and face: Calvarium and facial bones appear intact, without suspicious lesions. Orbits appear normal. Sinuses: Sinuses and mastoids are clear. HEAD CT ANGIOGRAPHY: Anterior circulation: Intracranial internal carotid arteries are normal in size and flow. Mild atherosclerotic calcification of the intracranial internal carotid arteries. The flow within the paired anterior cerebral arteries is normal and symmetric. The flow within the middle cerebral arteries is normal and symmetric. The anterior communicating artery is seen. No aneurysms are seen. Posterior circulation: Visualized portions of the vertebral arteries demonstrate normal caliber, and join to form a normal appearing basilar artery. Flow within the posterior cerebral arteries is normal and symmetric. No aneurysms are seen. NECK CT ANGIOGRAPHY: Carotid system: The great vessels demonstrate a conventional anatomy as they arise from the aortic arch. The origins of the common carotid arteries appear patent. The common carotid arteries demonstrate normal caliber and courses. Mild calcification at both carotid bulbs causing less than 50% stenosis bilaterally. . The internal carotid arteries demonstrate normal calibers and courses. Posterior circulation: The origins of the vertebral arteries both appear widely patent. The more superior extracranial portions of both vertebral arteries also demonstrate normal courses and calibers. They join to form a normal appearing basilar ar jenn. Soft tissues: Visualized neck soft tissues demonstrate no suspicious abnormalities. Bones: No suspicious bony lesions. Severe degenerative changes of the cervical spine and chronic appearing T5 vertebral body wedge deformity. Visualized cervical spine appears normally aligned. IMPRESSION: 1. Mild bilateral carotid calcification at the bulbs causing less than 50% stenosis. 2. There is mild atherosclerosis of the intracranial internal carotid arteries but without flow limiting stenosis or occlusion. 3. No intracranial vascular occlusion or aneurysm. Any quantitative measurements of stenosis were performed using NASCET criteria. Dictated by: Jaki Rodriguez M.D. on 07/31/2020 at 21:02 Approved by: Jaki Rodriguez M.D. on 07/31/2020 at 21:12 [facility] Narrative Medical decision making narrative: 75-year-old male presents with focal neurologic findings 5 hours after last known well. He is activated as code stroke but is outside of any tPA window. LAMBS score 3. No LVO noted on imaging. Patient requires admission for further evaluation and characterization of stroke and likely eval by PT/OT/Speech etc. was at bedside for majority of his it and understands and agrees with the plan. Discharge Plan Departure Patient Disposition: Admitted As Inpatient Clinical Impression: Stroke Admit Date/Time: 07/31/20 23:03 Admit Provider: Marie Miller
[2020-07-31 19:53] LABS: INR 1.3 (0.9-1.3); Prothrombin Time 14.6 SECONDS (10.1-12.7)
[2020-07-31 19:55] LABS: PTT Partial Thromboplastin Tim 35 SECONDS (26.4-36.2)
[2020-07-31 19:59] LABS: BUN Creatinine Ratio 27.7 (6-22); Blood Urea Nitrogen 23 mg/dL (9-20); Calcium 9.4 mg/dL (8.4-10.2); Carbon Dioxide 33 mmol/L (22-32); Chloride 104 mmol/L (98-107); Estimated Glomerular Filt Rate > 60.0 mL/min (>60); Glucose 155 mg/dL (80-110); HEMOLYSIS < 15 (0-50); Potassium 3.6 mmol/L (3.4-5.1); Sodium 143 mmol/L (137-145)
[2020-07-31] MEDS: SODIUM CHLORIDE 0.9% 1,000 ML 150 ML IV (20:00)
[2020-07-31 20:11] LABS: UR Morphine/Opiate cutoff 300 Negative (Negative); Ur Creatinine Normal (Normal); Ur Specific Gravity Normal (Normal); Urine Amphetamines Negative (Negative); Urine Cocaine Negative (Negative); Urine Methamphetamines Negative (Negative); Urine Tetrahydrocannabinol Negative (Negative); Urine pH Normal (Normal)
[2020-07-31 20:12] LABS: Urine Barbiturates Negative (Negative); Urine Benzodiazepines Negative (Negative); Urine MDMA Negative (Negative); Urine Methadone Negative (Negative); Urine Oxycodone Negative (Negative); Urine Phencyclidine Negative (Negative); Urine Tricyclic Antidepressant Positive (Negative)
[2020-07-31 20:44] LABS: COVID19 - ADMIT (NP swab/PCR) Negative (Negative)
[2020-07-31 20:56] LABS: Appearance Urine UA CLEAR; Bacteria Urine None Seen; Bilirubin Urine UA NEGATIVE (NEGATIVE); Color Urine UA YELLOW; Glucose Urine UA NEGATIVE (Negative); Ketones Urine UA NEGATIVE (NEGATIVE); Leukocyte Esterase Urine UA NEGATIVE (NEGATIVE); Nitrite Urine UA NEGATIVE (Negative); Occult Blood Urine UA NEGATIVE (Negative); Protein Urine UA NEGATIVE (Negative); RBC Urine None Seen (0-5/HPF); Specific Gravity Urine UA 1.025 (1.000-1.035); Urobilinogen Urine UA 0.2 E.U./dL (0.2); pH Urine UA 5.5 (4.5-8.0)
[2020-07-31 21:03] LABS: Culture Indicated Urine Cult Not Indicated; Mucus Urine 1+ (Negative); Squamous Epithelial Cell Urine 0-1 /HPF (0-5/HPF); WBC Urine 0-1/HPF (0-5/HPF)
--- NOTE | 2020-07-31 23:16 | DI.MRI.S_ITS ---
PROCEDURE: MR STROKE Pre- and post-contrast brain MRI, non-contrast brain MR angiogram, pre- and postcontrast neck MR angiogram INDICATIONS: Possible TIA TECHNIQUE: Brain: Noncontrast axial T1 spin echo, axial T2 fast spin echo, sagittal and axial FLAIR, coronal T2 fast spin echo, axial gradient echo, axial diffusion and ADC through the brain. After the administration of contrast, axial 3D VIBE of the cranial vasculature and brain. Brain MRA: Non-contrast 3-D time of flight MR angiogram, with multiple rquumjl-liqfkcoag-cxwnfffrnu (MIP) reformats performed. Neck MRA: Axial and sagittal TruFISP through the neck. Coronal dynamic MR angiogram during administration of contrast in the arterial and venous phases, with 3-dimenstional libepig-frujvbjcx-tyjzlyjtug (MIP) reformats constructed from subtraction images. COMPARISON: [facility], MR, BRAIN WITHOUT CONTRAST, 08/04/2017, 14:14. [facility], CT, CT ANGIO HEAD AND NECK, 07/31/2020, 19:39. FINDINGS: Image quality: Partially degraded by motion artifact. BRAIN: CSF spaces: Ventricles are normal in size and shape. Basal cisterns are patent. No extra-axial fluid collections. Brain: No intracranial bleeds or mass effects. Moderate diffuse cerebral volume loss. Mild degree of patchy high FLAIR signal within the periventricular and subcortical white matter. Weiss-white matter interface is normal. Diffusion weighted images show no acute ischemic insults. Brainstem appears normal. Normal intravascular flow voids are present. No abnormal intracranial enhancement. Skull and face: Calvarial marrow signal is normal. Orbits appear normal. Sinuses: Moderate bilateral ethmoid sinus mucosal thickening. Mild sphenoid sinus mucosal thickening. Mild maxillary sinus mucosal thickening. Small amount of bilateral mastoid fluid. BRAIN MR ANGIOGRAM: Anterior circulation: Intracranial internal carotid arteries are normal in size and enhancement. The flow within the paired anterior cerebral arteries is normal and symmetric. The flow within the middle cerebral arteries is normal and symmetric. The anterior communicating artery is seen. No stenoses, occlusions, or aneurysms. Posterior circulation: The visualized portions of the vertebral arteries demonstrate normal caliber, and join to form a normal appearing basilar artery. Near origins of the bilateral posterior cerebral arteries. The flow within the posterior cerebral arteries is normal and symmetric. No stenoses, occlusions, or aneurysms. NECK MR ANGIOGRAM: Carotids: Great vessels demonstrate a conventional anatomy as they arise from the aortic arch. The origins of the common carotid arteries appear patent. The calibers and courses of both common carotid arteries are normal. Mild, roughly 30% origin stenosis of the left internal carotid artery. Right internal carotid artery is patent. Posterior circulation: Right vertebral artery origin is patent. Moderate to high-grade left vertebral artery origin stenosis. More superior portions of both vertebral arteries demonstrate normal course and caliber, and join to form a normal appearing basilar artery. Miscellaneous: Subclavian arteries appear patent. Pre-contrast images through the neck show no soft tissue abnormalities. IMPRESSION: BRAIN MRI: 1. Volume loss and small vessel ischemic disease. 2. No acute process. No recent infarct. 3. Sinus disease. BRAIN MR ANGIOGRAM: 1. No acute process. No change in arterial vasculature compared to 07/31/2020 NECK MR ANGIOGRAM: 1. Mild left internal carotid artery stenosis. No significant right internal carotid artery stenosis. 2. Patent right vertebral artery. 3. Moderate to high-grade left vertebral artery origin stenosis. Dictated by: Ronald Farrell M.D. on 08/01/2020 at 15:49 Approved by: Ronald Farrell M.D. on 08/01/2020 at 15:55
--- NOTE | 2020-07-31 23:23 | DI.ECHO.S_ITS ---
[facility]---------+ [facility] +---------+ : : [address] : [place] : : : : [id number] : : : : Phone: [phone]+ Echocardiogram Report + + :Name: LEONEL HOUSE Study Date: 08/01/2020 Height: 68 in : :[facility] ReadingLocation: Weight: 142 lb : : Gender: Male BSA: 1.8 m2 : :: 1945 Age: 75 yrs BP: 115/64 mmHg: :Reason For Study: NEUROLOGICAL DEFICITS : :Ordering Physician: : :RAKAN PERRIN [employer] SUPERVISOR-BC Performed By: Saundra Roblero : :Referring: RAKAN PERRIN : + + Interpretation Summary Left ventricular systolic function appears normal with an estimated ejection fraction of 55 to 60% and appears less hyperdynamic compared to the previous exam. There is akinesis of the base of the inferior wall which can be a normal variant and appears unchanged from the previous exam. Otherwise, there are no focal wall motion abnormalities. There is mild concentric LVH with normal left ventricular volumes. There is a probable diastolic relaxation abnormality but likely normal filling pressures and likely similar to the previous exam. The right ventricle appears normal and unchanged from the previous study. Right ventricular systolic pressure cannot be estimated but CVP is likely around 3 mmHg. Both atria are normal in size but slightly larger compared to the previous study. The aortic valve is moderately calcified with moderate to severe aortic stenosis with a peak velocity of 3.9 m/s, a mean gradient of 34 mmHg, and a severity ratio of 0.29. This is new compared to the previous study when the previous peak velocity was 2.1 m/s with a mean gradient of 10 mmHg and a severity ratio of 0.74. There is moderate aortic regurgitation now present that is also new compared to the previous study. There is no other significant valvular abnormality. The patient was in sinus rhythm at 75-87 bpm which is considerably slower compared to the previous exam. Procedure: A two-dimensional transthoracic echocardiogram with color flow and Doppler was performed. Most of the acoustic windows were suboptimal, but the best imaging was obtained from the apical window. Comparison is made with the echocardiogram of 11/18/2011. The patient was in sinus rhythm with heart rates between 75-87 bpm during the exam. The patient had occasional PVCs during the exam. Left Ventricle: The left ventricle is normal in size. The estimated left ventricular end diastolic volume is 76 ml. There is mild concentric left ventricular hypertrophy. Overall left ventricular systolic function is preserved. The ejection fraction is estimated to be 55-60%. There is akinesis at the base of the inferior wall which can be a normal variant and appears unchanged from the previous study. There are no other focal wall motion abnormalities. Overall systolic function appears slightly less dynamic compared to the previous exam. Diastolic parameters suggest a relaxation abnormality of the left ventricle, consistent with probable normal filling pressures. This is unchanged compared to the previous study. Right Ventricle: The right ventricle is normal in size and function. This is unchanged compared to the previous study. Atria: Both atria are normal in size. Both atria have mildly increased in size since the prior echo exam. There is no Doppler evidence for an interatrial shunt. Mitral Valve: There is mild mitral annular calcification. There is trace mitral regurgitation. Aortic Valve: The aortic valve is moderately calcified. There is moderate to severely reduced leaflet mobility. There is moderate to severe aortic stenosis. This is new compared to the previous study. The peak aortic velocity is 3.9 m/sec. The aortic valve mean gradient is 34 mmHg. The calculated aortic valve area is .96 cm2. There is moderate aortic regurgitation. This is new compared to the previous study. Tricuspid Valve: The tricuspid valve is normal in structure and function. There is trace tricuspid regurgitation. Pulmonary artery pressures cannot be estimated because of the lack of a measurable TR jet velocity but the IVC suggests a CVP of around 3 mmHg. Pulmonic Valve: The pulmonic valve is not well seen, but is grossly normal. There is no pulmonic valvular regurgitation. There is no other significant valvular heart disease. Great Vessels: The aortic root is not well visualized but is probably normal size. The dimensions of the ascending aorta are normal. The IVC is of normal diameter and collapses greater than 50% with a sniff. This suggests a low right atrial pressure of 3 mm Hg. Pericardium/ Pleura There is no pericardial effusion. There is no pleural effusion. MMode/2D Measurements & Calculations LVIDd: 5.1 cm LVOT diam: 2.1 cm LVIDs: 3.6 cm asc Aorta Diam: 3.1 cm FS: 28.2 % EPSS: 1.1 cm IVSd: 1.2 cm LVPWd: 0.96 cm LV brown. diameter/BSA (cm/m^2): 2.9 LV sys. diameter/BSA (cm/m^2): 2.1 LA A2 area: 20.1 cm2 RA long axis: 5.3 cm LA A4 area: 18.2 cm2 RA area: 16.3 cm2 LA length (vol): 5.4 cm RA vol: 42.8 ml LA vol: 57.9 ml RA : 24.2 ml/m2 LA vol index: 32.7 ml/m2 IVC diam: 1.2 cm RVD1 (basal): 2.8 cm TAPSE: 1.8 cm Doppler Measurements & Calculations Ao V2 max: 386.5 cm/sec LVOT Max Ezequiel: 109.2 cm/sec Ao V2 mean: 275.5 cm/sec LV V1 max P.8 mmHg Ao max P.8 mmHg LV V1 VTI: 25.0 cm Ao mean P.5 mmHg BERENICE(I,D): 0.98 cm2 Ao V2 VTI: 87.2 cm BERENICE(V,D): 0.96 cm2 sev ratio: 0.29 BERENICE indexed to BSA (cm^2/m^2): 0.55 AI P1/2t: 306.5 msec AI dec slope: 424.5 cm/sec2 MV E max ezequiel: 78.4 cm/sec PA V2 max: 70.2 cm/sec MV A max ezequiel: 115.3 cm/sec PA V2 mean: 49.7 cm/sec MV E/A: 0.68 PA mean P.1 mmHg Med Peak E' Ezequiel: 5.6 cm/sec PA pr(Accel): 48.2 mmHg E/E' med: 14.0 Lat Peak E' Ezequiel: 6.9 cm/sec E/E' lat: 11.3 E/e' average: 12.7 MV dec time: 0.25 sec SV(LVOT): 85.0 ml Reading Physician:12:03 PM
[2020-07-31 23:52] LABS: Hemoglobin A1C% w Est Avg Glu 5.6 % (4.0-6.0)
[2020-08-01] VITALS (14 sets, daily range): BP systolic 110–139; BP diastolic 60–88; PULSE 63–87; RESP 13–23; TEMP 36.5–36.8; O2SAT 91–98; BMI 21.6
[2020-08-01 00:14] LABS: Thyroid Stimulating Hormone 1.77 uIU/mL (0.47-4.68)
[2020-08-01] MEDS: SODIUM CHLORIDE 0.9% 1,000 ML 60 ML IV (01:50)
--- NOTE | 2020-08-01 04:06 | P.HP_ITS ---
History of Present Illness History of Present Illness Date Patient Seen: 07/31/20 Time Patient Seen: 23:30 Chief complaint: Code stroke Narrative: Patient is a 75-year-old male ESTEBAN Abdul former smoker, former drinker with history of depression, alcohol use disorder in sustained remission, history of neuro cognitive disorder presents by EMS as a code stroke. He was activated as a code stroke and taken directly to CT scan on arrival. He was in his normal state of health which is active, ambulatory, conversive and articulate over the course of the day and was last seen normal at 2:30 p.m.. He laid down to take a nap and at 4:30 p.m. he awoke and was found by his to be in the state that he is on his arrival which is confused, slurring words, fa cial droop, complaining of tingling and weakness of his arm. He has had no fever chills and denies any recent injury. He has had no use of drugs or alcohol. His arrival was 5 hours since last known well and he was outside TPA window from the onset. joined us early and confirmed timing as well as description of significant departure from baseline. states patient is DNR, PCP is Dr. Cartwright Vital signs upon admit temp 97.8?, BP 102/58, HR 63, RR 14, O2 saturation 96% on 2 L nasal cannula. NIH:10 Patient's labs BUN 23, HC03 33, glucose 155, BUN creatinine ratio 27.7, UA negative, drug screen negative. Head/neck CTA:Mild bilateral carotid calcification at the bulbs causing less than 50% stenosis. There is mild atherosclerosis of the intracranial internal carotid arteries but without flow limiting stenosis or occlusion. No intracranial vascular occlusion or aneurysm. Brain CT:No CT evidence of acute intracranial process. Age- appropriate exam. Chronic changes of chronic sinus disease and prior surgery. Patient had focal neurologic findings 5 hours after last known well. He is activated as code stroke but is outside of any tPA window. LAMBS score 3. No LVO noted on imaging. Patient requires admission for further evaluation and characterization of stroke and likely eval by PT/OT/Speech etc. at bedside in ED understood and agreed with plan care. Dr. Martinez Psych OV note 05/19/20:Esteban Abdul (John) is a 75-year-old male initially referred by PCP Dr. Brooks for evaluation of mood and psychotic symptoms. He has a long history of alcohol and benzodiazepine dependence, and h/o ED visits in 2017 for Wernicke's encephalopathy. He developed auditory hallucinations several years ago, and has no other psychiatric history other than anxiety and what sounds like either OCD or OCPD traits. His initial presentation (July 2017) showed concern for long-term sequelae of alcohol & benzodiazepine use, and with some movements symptoms as well as hallucinations, there was concern for LBD. However, Parkinsonian features resolved with stopping risperidone, and cognitive symptoms have improved overall with more aggressive treatment of depression. 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 Social History: household members lives with his , is retired Prior Living Arrangements House Safety & Behavioral: Feels Safe in Current Yes Environment Been Physically Hurt or No Threatened By a Person Suicidal Ideation Description None Suicide Plan Description No Plan Tobacco & Substance use: Smoking Status Former smoker quit 10 years ago alcohol intake frequency quit 2017 Substance Use Type does not use Meds Home Medications and Allergies Home Medications Medication Instructions Recorded Confirmed Type MULTIVITAMIN (#UNI-STRESS) 1 cap PO QDAY #0 11/14/11 08/01/20 History simvastatin 40 mg PO HS #0 11/14/11 07/31/20 History melatonin 3 mg PO HS #0 07/15/17 08/01/20 History ascorbic acid (vitamin C) 500 mg 500 mg PO DAILY cap 11/03/17 08/01/20 History capsule cholecalciferol (vitamin D3) 25 1,000 unit PO DAILY 11/03/17 08/01/20 History mcg (1,000 unit) capsule calcium carbonate 600 mg calcium 600 mg PO DAILY 12/15/19 08/01/20 History (1,500 mg) tablet vitamin B complex 1 cap PO DAILY 12/15/19 08/01/20 History vitamin E (dl, acetate) 450 mg 1,000 unit PO DAILY 12/15/19 08/01/20 History (1,000 unit) capsule quetiapine 200 mg tablet 100 mg PO BID #30 tab 06/28/20 07/31/20 Rx divalproex 250 mg tablet,delayed See Rx Instructions PO .COMPLEX 07/10/20 07/31/20 Rx release #90 tab lorazepam 0.5 mg tablet 0.5 mg PO TID PRN #90 tab 07/11/20 07/31/20 Rx venlafaxine 150 mg 300 mg PO QAM #60 cap 07/31/20 07/31/20 Rx capsule,extended release 24 hr Allergies Allergy/AdvReac Type Severity Reaction Status Date / Time No Known Drug Allergies Allergy Verified 07/31/20 20:13 Review of Systems Review of Systems ROS: Yes All systems reviewed with the patient and are negative except as otherwise documented Constitutional Comments: Brain feels foggy coming and going for several months and not a new onset Exam Vital Signs (past 8 hours): - 07/31/20 20:15 07/31/20 20:30 07/31/20 20:45 Temperature Pulse Rate 74 69 69 Respiratory Rate 14 14 14 Blood Pressure 111/62 Pulse Oximetry 92 95 95 07/31/20 21:00 07/31/20 21:15 07/31/20 21:16 Temperature Pulse Rate 67 69 68 Respiratory Rate 14 13 14 Blood Pressure 94/58 L 113/64 Pulse Oximetry 95 95 96 07/31/20 21:30 07/31/20 21:45 07/31/20 22:00 Temperature Pulse Rate 66 66 64 Respiratory Rate 14 13 14 Blood Pressure 103/59 L 99/56 L Pulse Oximetry 96 96 96 07/31/20 22:15 07/31/20 22:30 07/31/20 22:45 Temperature Pulse Rate 64 63 65 Respiratory Rate 14 14 15 Blood Pressure 102/58 L Pulse Oximetry 96 96 97 07/31/20 23:00 07/31/20 23:15 07/31/20 23:30 Temperature Pulse Rate 64 68 63 Respiratory Rate 14 16 13 Blood Pressure 108/59 L 123/61 Pulse Oximetry 96 97 93 07/31/20 23:45 08/01/20 00:00 08/01/20 00:15 Temperature Pulse Rate 63 63 63 Respiratory Rate 13 13 13 Blood Pressure 110/60 Pulse Oximetry 93 94 91 08/01/20 00:30 08/01/20 00:45 08/01/20 00:59 Temperature Pulse Rate 63 63 65 Respiratory Rate 13 14 15 Blood Pressure 114/63 Pulse Oximetry 96 95 08/01/20 01:00 08/01/20 01:15 08/01/20 01:24 Temperature 98.2 F 98.2 F Pulse Rate 73 73 Respiratory Rate 23 23 Blood Pressure 115/64 126/71 126/71 Pulse Oximetry 98 98 Oxygen Delivery Method Nasal Cannula Oxygen Flow Rate 1 Narrative Exam Narrative: General: Patient is a well-developed, well-nourished in no distress at this time. HEENT: Normocephalic, atraumatic, extraocular muscles intact, oral pharynx is clear and mucous membranes are moist. Neck is supple and symmetric, trachea is midline, no adenopathy, no thyroid enlargement, nontender, no masses palpated. Negative for JVD Chest: Normal AP diameter and contour without kyphoscoliosis, no nasal flaring, retractions, or tachypneic labored Lungs: Auscultation of all lung montoya are clear without adventitious sounds, wheezes, rhonchi, or rales. Cardio: S1 & S2 with regular rate and rhythm without murmur, rubs, or gallops, no carotid bruit, no cardiac pulsations present. Abdomen: Soft nontender, negative for organomegaly, or masses. Bowel sounds are present in all 4 quadrants without guarding or rebound, no CVA tenderness. Musculoskeletal: Muscle strength and tone are equal within normal limits, no deformity, crepitus, effusions, cyanosis, clubbing or edema present. Full range of motion intact radial and pedal pulses are normal. Skin: Warm dry and intact without rashes, ulcerations or petechiae. Neuro: Alert and orientated x3, strength is +5/5 in all extremities, sensation to touch intact, left-sided facial droop, with no other gross deficits noted of cranial nerves. Psych: Patient has a well-kept appearance, appropriate affect, mental status attitude thought context and judgment are appropriate for age. Objective Labs Result Diagrams: 07/31/20 19:38 03/29/21 19:38 Labs: Laboratory Results - last 24 hr 07/31/20 07/31/20 07/31/20 19:38 19:38 19:38 WBC 6.9 RBC 4.52 Hgb 15.3 Hct 46.2 MCV 102.2 H MCH 33.9 MCHC 33.2 RDW 14.2 Plt Count 211 Neut % (Auto) 54.9 Lymph % (Auto) 33.3 [place] % (Auto) 7.5 Eos % (Auto) 3.3 Baso % (Auto) 1.0 Neut # (Auto) 3800 Lymph # (Auto) 2300 [place] # (Auto) 500 Eos # (Auto) 200 Baso # (Auto) 100 PT 14.6 H INR 1.3 APTT 35 Sodium 143 Potassium 3.6 Chloride 104 Carbon Dioxide 33 H BUN 23 H Creatinine 0.83 Estimated GFR > 60.0 BUN/Creatinine Ratio 27.7 H Glucose 155 H Hemoglobin A1c Calcium 9.4 TSH Urine Color Urine Appearance Urine pH Ur Specific [place] Urine Protein Urine Glucose (UA) Urine Ketones Urine Occult Blood Urine Nitrate Urine Bilirubin Urine Urobilinogen Ur Leukocyte Esterase Urine RBC Urine WBC Ur Squamous Epith Cells Urine Bacteria Urine Mucus Ur Culture Indicated? U Opiates 300ng/mL cut Ur Oxycodone Screen Urine Methadone Screen Ur Barbiturates Screen U Tricyclic Antidepress Ur Phencyclidine Scrn Ur Amphetamines Screen U Methamphetamines Scrn Ur MDMA Scrn (Ecstasy) U Benzodiazepines Scrn Urine Cocaine Screen U Marijuana (THC) Screen SARS-CoV-2 (PCR) 07/31/20 07/31/20 07/31/20 19:38 19:38 19:45 WBC RBC Hgb Hct MCV MCH MCHC RDW Plt Count Neut % (Auto) Lymph % (Auto) [place] % (Auto) Eos % (Auto) Baso % (Auto) Neut # (Auto) Lymph # (Auto) [place] # (Auto) Eos # (Auto) Baso # (Auto) PT INR APTT Sodium Potassium Chloride Carbon Dioxide BUN Creatinine Estimated GFR BUN/Creatinine Ratio Glucose Hemoglobin A1c 5.6 Calcium TSH 1.77 Urine Color Urine Appearance Urine pH Ur Specific [place] Urine Protein Urine Glucose (UA) Urine Ketones Urine Occult Blood Urine Nitrate Urine Bilirubin Urine Urobilinogen Ur Leukocyte Esterase Urine RBC Urine WBC Ur Squamous Epith Cells Urine Bacteria Urine Mucus Ur Culture Indicated? U Opiates 300ng/mL cut Ur Oxycodone Screen Urine Methadone Screen Ur Barbiturates Screen U Tricyclic Antidepress Ur Phencyclidine Scrn Ur Amphetamines Screen U Methamphetamines Scrn Ur MDMA Scrn (Ecstasy) U Benzodiazepines Scrn Urine Cocaine Screen U Marijuana (THC) Screen SARS-CoV-2 (PCR) Negative 07/31/20 07/31/20 19:54 19:54 WBC RBC Hgb Hct MCV MCH MCHC RDW Plt Count Neut % (Auto) Lymph % (Auto) [place] % (Auto) Eos % (Auto) Baso % (Auto) Neut # (Auto) Lymph # (Auto) [place] # (Auto) Eos # (Auto) Baso # (Auto) PT INR APTT Sodium Potassium Chloride Carbon Dioxide BUN Creatinine Estimated GFR BUN/Creatinine Ratio Glucose Hemoglobin A1c Calcium TSH Urine Color Yellow Urine Appearance Clear Urine pH 5.5 Ur Specific [place] 1.025 Urine Protein Negative Urine Glucose (UA) Negative Urine Ketones Negative Urine Occult Blood Negative Urine Nitrate Negative Urine Bilirubin Negative Urine Urobilinogen 0.2 Ur Leukocyte Esterase Negative Urine RBC None seen Urine WBC 0-1/hpf Ur Squamous Epith Cells 0-1 /hpf Urine Bacteria None seen Urine Mucus 1+ H Ur Culture Indicated? Cult not indicated U Opiates 300ng/mL cut Negative Ur Oxycodone Screen Negative Urine Methadone Screen Negative Ur Barbiturates Screen Negative U Tricyclic Antidepress Positive H Ur Phencyclidine Scrn Negative Ur Amphetamines Screen Negative U Methamphetamines Scrn Negative Ur MDMA Scrn (Ecstasy) Negative U Benzodiazepines Scrn Negative Urine Cocaine Screen Negative U Marijuana (THC) Screen Negative SARS-CoV-2 (PCR) Assessment & Plan Assessment and plan (1) Stroke: Problem details: Diagnosis neurological deficit, acute ischemia stroke/TIA, condition guarded, acute, present on admission possible secondary contributing factors long-time history of alcohol and benzodiazepine abuse- in remission -differential diagnosis TIA, stroke symptoms lasting greater than 24 hours, ischemic stroke, intracranial hemorrhage, subdural hematoma, epidural hematoma, seizure, brain tumor, migraine, vertigo, hypoglycemia, [place] syndrome, multiple sclerosis, aortic dissection Vital signs upon admit temp 97.8?, BP 102/58, HR 63, RR 14, O2 saturation 96% on 2 L nasal cannula. NIH:10 Patient's labs BUN 23, HC03 33, glucose 155, BUN creatinine ratio 27.7, UA negative, drug screen negative. Head/neck CTA:Mild bilateral carotid calcification at the bulbs causing less than 50% stenosis. There is mild atherosclerosis of the intracranial internal carotid arteries but without flow limiting stenosis or occlusion. No intracranial vascular occlusion or aneurysm. Brain CT:No CT evidence of acute intracranial process. Age-appropr iate exam. Chronic changes of chronic sinus disease and prior surgery. Patient had focal neurologic findings 5 hours after last known well. He is activated as code stroke but is outside of any tPA window. LAMBS score 3. No LVO noted on imaging. Patient requires admission for further evaluation and characterization of stroke and likely eval by PT/OT/Speech etc. Vital signs q.4 hours, neuro checks q.2 hours for 1st 24 hours then q.4 hours, notify provider for temp greater than 38 C, , heart rate >100 -treat systolic blood pressure>220 or diastolic blood pressure> 120 -activity bed rest until initial physical therapy assessment is performed, then mobilize BRENDA as guided by Physical therapy, strict fall precautions. -supplemental O2 to maintain> 94%, check capillary blood glucose q.6 hours. -Diet NPO until swallow evaluation is done, then heart healthy if cleared -fluids:NS 60cc/Hr -Medications: Aspirin 325 mg p.o. q.day within 48 hours, Plavix 75 mg daily, atorvastatin 80 mg acetaminophen 250 mg q.6 hours for 48 hours to prevent fever, tPA outside of window. -labs CBC, PT CMP, TSH, troponins, glucose, hemoglobin A1c, Lipid panel -neurology consult, PT/OT/ST evaluations -ABCD 2 score -diagnostics:MR and echo study tomorrow -discharge planning establish patient has a safe home environment if going home 2. Major depressive disorder with auditory hallucinations, acute on chronic, not present on admission -patient to continue with Depakote lorazepam, Seroquel, melatonin and venl afaxine: Note confirmed medications per psychiatric office visit note 05/19/2020 3. Hyperlipidemia, chronic, control unknown, not present on admission -continue patient's simvastatin, lipid panel ordered Code status: DNR Surrogate decision maker: spouse Shari BALTAZAR PCR: Negative VTE/DVT prophylaxis: Medication contraindicated patient on Plavix and SCDs Qualifiers: CVA mechanism: unspecified Qualified Code(s): I63.9 - Cerebral infarction, unspecified Status: Acute Scores GCS Yves coma scale eye opening: Spontaneous [place] coma scale verbal response: Orientated [place] coma scale motor response: Obey commands Yves coma scale total score: 15 ABCD2 Age >= 60 years: yes Initial BP. Either SBP >= 140 or DBP >= 90.: no Clinical features of the TIA: unilateral weakness Duration of symptoms: >= 60 minutes History of diabetes: no ABCD2 Score: 5 NIHSS Level of Conciousness: Alert, keenly responsive Ask month/age: Answers both questions correctly. Open/close eyes, close hand: Performs both tasks correctly Best gaze horizontal: Normal Visual montoya: No visual loss Facial palsy: Partial paralysis, total or near total paralysis of lower face Left arm drift: No drift for full 10 sec Right arm drift: No drift for full 10 sec Left leg drift: No drift for full 5 sec Right leg drift: No drift for full 5 sec Limb ataxia: Absent Sensory on face/arms/legs: Normal, no sensory loss Best language: No aphasia, normal Dysarthria: Normal Extinction or inattention: No abnormality Total NIH Stroke scale score: 2 Quality VTE Deep Vein Thrombosis/Pulmonary Embolism Present on Admission: No
[2020-08-01 06:04] LABS: Alanine Aminotransferase 14 IU/L (<50); Albumin 3.3 g/dL (3.5-5.0); Albumin Globulin Ratio 1.3 (1.0-2.8); Alkaline Phosphatase 71 U/L (38-126); Aspartate Aminotransferase 32 IU/L (17-59); BUN Creatinine Ratio 29.2 (6-22); Bilirubin Total 0.2 mg/dL (0.2-1.3); Blood Urea Nitrogen 19 mg/dL (9-20); Calcium 8.6 mg/dL (8.4-10.2); Carbon Dioxide 26 mmol/L (22-32); Chloride 110 mmol/L (98-107); Estimated Glomerular Filt Rate > 60.0 mL/min (>60); Globulin 2.6 g/dL (1.7-4.1); Glucose 81 mg/dL (80-110); Sodium 140 mmol/L (137-145); Total Protein 5.9 g/dL (6.3-8.2)
[2020-08-01 06:12] LABS: HEMOLYSIS 58 (0-50)
[2020-08-01 06:13] LABS: Potassium 4.2 mmol/L (3.4-5.1)
[2020-08-01 06:15] LABS: Troponin I < 0.012 ng/mL (0.01-0.034)
[2020-08-01 06:30] LABS: Cholesterol 129 mg/dL (140-199); HDL Cholesterol 29 mg/dL (40-60); LDL Cholesterol Calculated 69 mg/dL (<100); Triglycerides 156 mg/dL (35-150)
[2020-08-01] MEDS: VENLAFAXINE ER 75 MG CAP 300 MG PO (09:17)
[2020-08-01] MEDS: ASPIRIN EC 325 MG TABLET PO (09:18)
[2020-08-01] MEDS: LORazepam 0.5 MG TABLET PO (09:18)
[2020-08-01] MEDS: CLOPIDOGREL 75 MG TABLET PO (09:18)
[2020-08-01] MEDS: DOCUSATE 100 MG CAPSULE PO (09:18)
[2020-08-01] MEDS: QUETIAPINE 25 MG TABLET 100 MG PO (09:18)
[2020-08-01] MEDS: DIVALPROEX DR 250 MG TABLET PO (09:25)
--- NOTE | 2020-08-01 10:50 | PT.IIE ---
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 History of alcohol abuse History of tobacco abuse Physical Therapy Inpatient Evaluation/Re-Eval M1 PT/OT-IP Prior Functional Status Start: 08/01/20 11:42 Freq: NEEDED Status: Active Protocol: Document 08/01/20 10:50 AB (Rec: 08/01/20 11:53 AB [email or web address]) Medical Review Prior Functional Status Medical History Reviewed Yes Communication able to make needs known but with confusion and is CHIGNIK LAGOON Mobility and Gait per spouse: pt is modified independent with mobility and ambulates without AD; has h/o falls and last fall was a week ago Social History Household Members spouse Living Arrangements House Number of Floors (Floors) One Floor Number of Stairs To Enter/Railing? 2 platform steps to enter Home Environment Standard Height Toilet,Walk in Shower,Built-In Shower Seat Home Equipment Front Wheel Walker,Straight Cane M2 PT-IP Current Condition Start: 08/01/20 11:42 Freq: NEEDED Status: Active Protocol: Document 08/01/20 10:50 AB (Rec: 08/01/20 11:53 AB [email or web address]) Physical Therapy Current Condition Current Condition Evaluation Date 08/01/20 Treatment Diagnosis CVA; difficulty in walking Onset Date 07/31/20 Precautions Other Precautions falls M3 PT-IP Subjective Start: 08/01/20 11:42 Freq: NEEDED Status: Active Protocol: Document 08/01/20 10:50 AB (Rec: 08/01/20 11:53 AB [email or web address]) Subjective Physical Therapy Visit Type Type Initial Evaluation Visit Start Time 10:50 Visit Stop Time 11:20 Total Visit Minutes 30 Number of ACCREDITATION MANAGER Visits 0 Physical Therapy Visit Comments Patient Comments pt is agreeable to do PT; spouse in room with pt Therapy Pain Assessment Pain Present Pain Present Denied Pain M4 PT-IP Mobility and Gait Start: 08/01/20 11:42 Freq: NEEDED Status: Active Protocol: Document 08/01/20 10:50 AB (Rec: 08/01/20 11:53 AB [email or web address]) PT-Bed Mobility Assessment Supine to Sit Supine to Sit Standby Assistance PT-Transfer Assessment Sit to and From Stand Sit to and from Stand Contact Guard Assistance,Use of Upper Extremities Equipment Transfer Assistive Device Gait Belt,Front Wheeled Walker Orthotic/Prosthetic Devices or Brace: No Transfers Transfer Destination Chair Transfer Technique ambulated using FWW Transfer Ability Level of Assist Contact Guard Assistance,1 Person Assistance,Use of Upper Extremities Comments Mobility Comments pt completed supine to sit SBA but demonstrated difficulty to complete task and requires increase time to complete. pt was able to sit on EOB SBA. completed sit to stand CGA and ambulated to the chair using FWW CGA. assessed ambulation without AD and completed ~ 20 ft CGA and cues. increase lateral trunk lean to the L with decrease rene and with unsteady guarded gait. pt agreed to sit up on chair. positioned on chair. call light and table placed within reach. pt with confusion and refers to spouse for answers to questions. pt has h/o falls. informed spouse regarding outpt PT but stated that they prefer HHPT due to pt's cognitive issues and has hallucinations and unable to get out of the house due to this. Gait Assessment Gait Gait Assistance Required: Contact Guard Assist Distance (Feet) 20 Able to Maintain Weight Bearing Status Yes During Gait Assistive Devices Assistive Device None,Gait Belt,Front Wheeled Walker Orthotic/Prosthetic Devices or Brace: No Gait Deviations General Gait Pattern Antalgic,Decreased Stride Length,Decreased Feet Clearance,Lateral Trunk Lean Factors Limiting Gait Function Factors Limiting Gait Function Decreased Activity Tolerance, Decreased Strength,Poor Balance,Poor Safety Awareness Comments Gait Comments pls refer to mobility section for details PT-Balance Assessment Sitting Balance and Reactions Static Sitting Balance Ability Good Dynamic Sitting Balance Ability Good Standing Balance and Reactions Static Standing Balance Ability Fair Dynamic Standing Balance Ability Fair Device Used without AD M5 PT-IP Objective Assessments Start: 08/01/20 11:42 Freq: NEEDED Status: Active Protocol: Document 08/01/20 10:50 AB (Rec: 08/01/20 11:53 AB [id number]) Orientation Orientation/Cognition Level of Alertness Confusional State Orientation Name,Situation Language Function Ability Hard of Hearing Safety Awareness Decreased Safety Awareness Memory Description Short Term Impaired Gross Range of Motion Lower Extremity ROM Assessment Within Functional Limits Strength Lower Extremity Strength Hip 4-/5 Knee 4-/5 Sensation Assessment Sensation Gross Sensation WNL Muscle Tone Muscle Tone WNL Yes M6 PT-IP Treatment Start: 03/30/21 11:42 Freq: NEEDED Status: Active Protocol: Document 08/01/20 10:50 AB (Rec: 08/01/20 11:53 AB [email or web address]) Physical Therapy Treatment Education Education Provided Safety M7 PT-IP Assessment and Plan Start: 08/01/20 11:42 Freq: NEEDED Status: Active Protocol: Document 08/01/20 10:50 AB (Rec: 08/01/20 11:53 AB [email or web address]) PT Summary Assessment and Plan Potential Rehabilitation Potential Good Status of Condition at Evaluation Stable Summary Impairments Pain,ROM,Strength,Balance, Coordination,Cognition,Bed Mobility,Transfers,Gait, Activity Tolerance Assessment Summary pt requiring CGA with mobility and spouse stated that she can assist pt at home. pt also will benefit from HHPT. will continue PT to address balance and ambulation training. Goals Bed Mobility Goal Independent Transfer Goal Independent Gait Goal Independent Gait Distance 150 Other Goals up/down 2 platform steps without AD/FWW SBA Days to Meet Goals 3 Frequency of Treatment Frequency Of Treatment Once a Day Treatment Plan Physical Therapy Treatment Plan Bed Mobility Training,Transfer Training,Gait Training, Therapeutic Exercise,Balance Retraining,Discharge Planning, Hot or Cold Pack,Neuromuscular Re-ed,Coordination Retraining Precautions Other Precautions falls Recommendations To Nursing Amount of Assist Needed 1 Person Assist Discharge Recommendations PT Discharge Recommendations Home with 25/11 Assist Available,Home Health Transportation Needs at Discharge Private Vehicle
--- NOTE | 2020-08-01 11:29 | CM.DANOTE ---
Addendum entered by Henny Tapia 08/01/20 11:47: Patient is scheduled to have MRI at 1500 today, betting agency manager will follow up after MRI results with and nurses. Original Note: Patient is 75 yo M goes by Hemal with Medicare and [employer] insurance admitted to hospital on 07/31/20 due to acute ischemia stroke TIA. Patient with diagnosis of neurological deficit, patient has history of alcohol and benzo abuse and is in remission. Patient sees Dr. Martinez for medications and psych regarding diagnosis of MDD with auditory hallucinations, acute on chronic. betting agency manager met bedside with patient and Shari. Patient presented as alert and oriented. Patient reported that he just met with NET MOBILE DEVELOPER and Shari reported that he is having some trouble swallowing and talking. It was reported by patient that he got up to go to the bathroom with a walker and with support and he is pretty confident. Shari reported that patient is slow to get up at baseline. Shari reported that patient received HH 1.5 years ago and the service was helpful but he was doing much worse than he is now. It was reported that patient has family local and nearby. PT came in to work with patient at bedside. betting agency manager will follow up with PT, NET MOBILE DEVELOPER, and OT recommendations. BREE Garduno Discharge Planning/Care Management CM Discharge Assessment Start: 08/01/20 11:11 Freq: Status: Active Protocol: Document 08/01/20 11:15 LN (Rec: 08/01/20 11:23 LN [id number]) Discharge Planning Assessment Assigned Order Entry Clerk BREE Garduno Advance Directives? Yes History Provided By Patient,Significant Other Has Patient been admitted in last 30 No days? Prior Living Arrangements House Household Members spouse Type of transporation used prior to Relies on Others admit Independent with ADL's Yes Is patient alert and oriented? Yes Caregiver for Another No Community Services used prior to Home Health Aid admission: Comment Patient's reported that patient received Home health care 1.5 years ago Patient/Family Preference Home with Home Health Discharge Plan Home with Home Health Please Provide Date Initial DC 08/01/20 Assessment Was Performed
--- NOTE | 2020-08-01 11:39 | ST.OPIE ---
Addendum entered and electronically signed by Colten Walton 08/01/20 15:33: Discharge Recommendation: Acute Rehab Original Note: Visit Care Team Role Provider Type Alex Cartwright MD Primary Care Provider Physician Specialty: Internal Medicine Address: [address] [place] [address] Email: [email or web address] Bryn Duncan DO Emergency Provider Physician Referring Provider Specialty: Emergency Medicine Address: [address] [place] [address] Email: [email or web address] Garza Admit Provider Physician Attending Provider Specialty: Medical Address: [address] [place] [address] Email: Speech-Language Pathology Initial Evaluation DOUBLE END TRIMMER Adult Cognitive Linguistic Eval Start: 08/01/20 10:56 Freq: Status: Active Protocol: Document 08/01/20 10:57 ORALIA (Rec: 08/01/20 11:34 ORALIA [id number]) Adult Cognitive Linguistic Evaluation Session Time Visit Start Time 09:40 Visit Stop Time 10:25 Total Visit Minutes 45 Referral Referring Provider GET Garza Reason for Referral Code Stroke Setting Assessment Location Acute Care Visit Type Note Type Initial evaluation Next Note Type Next Note Type Treatment Note Patient Information Identification Type Name,ID Card Medical History Patient is a 75-year-old male ESTEBAN Abdul former smoker, former drinker with history of depression, alcohol use disorder in sustained remission, history of neuro cognitive disorder who presented to ED by EMS as a code stroke. Pt was outside window for tPA. Head, neck, brain CT performed. No CT evidence of acute intracranial process. Age-appropriate exam. Dr. Martinez Psych OV note 05/19:Esteban Abdul (John) is a 75-year-old male initially referred by PCP Dr. Brooks for evaluation of mood and psychotic symptoms. He has a long history of alcohol and benzodiazepine dependence, and h/o ED visits in 2017 for Wernicke's encephalopathy. He developed auditory hallucinations several years ago, and has no other psychiatric history other than anxiety and what sounds like either OCD or OCPD traits. His initial presentation (July 2017) showed concern for long- term sequelae of alcohol & benzodiazepine use, and with some movements symptoms as well as hallucinations, there was concern for LBD. However, Parkinsonian features resolved with stopping risperidone, and cognitive symptoms have improved overall with more aggressive treatment of depression. 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 The pt's reported to DOUBLE END TRIMMER that the pt has a baseline of auditory comprehension and memory deficits secondary to PMHx listed above. She and the pt understand that these symptoms are anticipated to increase over time. Language(s) Spoken in the Home [employer] Occupation Status Retired Hearing Hearing Level Impaired Auditory History No hearing aids. Moderate repetition of words/phrases and occasional viewing of DOUBLE END TRIMMER' s mouth during speech was required for the pt to clearly understand speech. Once understood correctly, the pt responded correctly. Vision Comments Appears to be natural age related decline. Wears reading glasses (2.5) Previous Therapy Previous Speech-Language Therapy No Subjective Patient Report The pt was awake, reclined in bed and watching TV upon DOUBLE END TRIMMER arrival. arrived at the end of speech/language evaluation and was present for swallow screening. She provided information RE pt's baseline challenges with memory and comprehension and reported occasional coughing with oral intake if he takes in too much at a time. Assessment Oral Motor Examination Completed Limited Results Pt wears full upper and partial lower dentures. Requires adhesive to fit well. Features appear symmetrical and WNL of strength, coordination and ROM. Speech with and without dentures was 100% intelligible. Nsg noted speech intelligibility with ill-fitting dentures (without adhesive) was mildly reduced. Swallow screening was administered with pt in upright position and wearing dentures with adhesive. The pt exhibited immediate cough response upon first swallow of thin liquid via straw. He stated, That was too big of a sip. With instruction to reduce bolus size, the pt consumed dry cracker and thin liquid via straw with and without food with no further overt s/sx of aspiration. Educated pt/spouse on aspiration risks and precautions. Recommended full upright position and reduced distractions with all oral intake, small bites/sips taken at a slow rate. Pt/spouse verbalized understanding and agreement. No modifications to diet warranted at this time. Informal Assessment Receptive Language Normal No: Per spouse report; Requires further assessment. Expressive Language Normal Yes Pragmatic Language Normal Yes Speech Normal Yes Cognition Normal Spouse reports memory deficits ; Requires further assessment. Findings/Results Language Function Mildly impaired Findings The pt provided accurate responses to all assessment tasks. Increased auditory processing time was required with increased length and complexity of test items. The pt frequently required repetition of questions, words or phrases, which appeared to be related to hearing loss vs comprehension deficit. He benefited from being able to see the DOUBLE END TRIMMER's mouth during speech for lip reading. Discussed POC with pt/spouse, particularly related to reports of baseline memory and auditory comprehension deficits. Pt agreed to further assessment of these skills with treatment likely to target compensatory strategies , including use of external memory aids, environmental modifications, and conversation partner strategies. Cognitive Communication Deficits Self-awareness of Cognitive- Situational awareness ( Communication Deficits recognition of problem in context;in real time) Concomitant Factors Concomitant Factors Hearing loss Impact on Functioning Activity Limits/Particip.Rest. Mod: General Tasks and Demands Household Tasks Interpersonal Interactions Safety Risks Mod: Being Left Alone at Home Reacting to Emergency Managing Medication Traveling Alone in Community Prognosis Prognosis Fair Based on Cognitive status,Family support,Comorbidities,Duration of symptoms/severity Plan of Care Speech-Language Treatment Yes Frequency Daily Duration over hospital stay Patient/Caregiver Education Described results of evaluation,Patient expressed understanding of evaluation, Patient expressed agreement with goals and treatment plans ,Family/caregivers expressed understanding of evaluation, Family/caregivers expressed agreement with goals and treatment plan,Patient expressed understanding of safety precautions,Patient expressed understanding of feeding recommendations,Family /caregivers expressed understanding of safety precautions,Family/caregivers expressed understanding of feeding recommendations, Patient requires further education/training,Family/ caregivers require further education/training Short Term Goals 1. The pt will participate in further assessment of auditory comprehension and cognitive linguistic skills to guide POC . 2. The pt/spouse will participate in development and training of compensatory strategies, including memory and communication aids, to increase the pt's independence and ability to participate in communicative ADLs, and to relieve caregiver burden. 3. The pt will follow safe swallow strategies with min v/ v cues to reduce risk of aspiration. Group Home Goals 1. The pt will use external memory aids and communication strategies with mod v/v prompts to improve ability to comprehend conversations and recall functional information necessary for ADLs. 2. The pt's spouse/caregiver will follow communication strategies and provide appropriate v/v prompts to pt in conversation and during oral intake in 80% of opportunities to increase pt's ability to effectively participate in conversations and to increase swallow safety . 3. The pt will tolerate regular textures and thin liquids without overt s/sx of aspiration.
--- NOTE | 2020-08-01 14:07 | OT.IP.EVAL ---
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 History of alcohol abuse History of tobacco abuse Surgical History (Last Updated 08/01/20 @ 06:43 by JEISON Garza) No significant past surgical history Occupational Therapy Inpatient Evaluation/Re-Eval M1 PT/OT-IP Prior Functional Status Start: 08/01/20 14:16 Freq: NEEDED Status: Active Protocol: Document 08/01/20 13:25 [facility] (Rec: 08/01/20 14:39 [facility] [id number]) Medical Review Prior Functional Status Medical History Reviewed Yes Communication able to make needs known but with confusion and is [place] Mobility and Gait per spouse: pt is modified independent with mobility and ambulates without AD; has h/o falls and last fall was a week ago Activities of Daily Living and IADL's Pt states does all his ADl's on his own and help take out the trash. Pt states likes to work out in his shop. Social History Household Members spouse Living Arrangements House Number of Floors (Floors) One Floor Number of Stairs To Enter/Railing? 2 platform steps to enter Home Environment Standard Height Toilet,Walk in Shower,Built-In Shower Seat Home Equipment Front Wheel Walker,Straight Cane M2 OT-IP Current Condition Start: 08/01/20 14:16 Freq: Status: Active Protocol: Document 08/01/20 13:25 [facility] (Rec: 08/01/20 14:39 [facility] [id number]) Occupational Therapy Current Condition Current Condition Evaluation Date 08/01/20 Treatment Diagnosis Acute ischemic CVA/TIA, decreased mobility Diagnosis Onset Date 07/31/20 M3 OT- IP Subjective and Pain Start: 08/01/20 14:16 Freq: Status: Active Protocol: Document 08/01/20 13:25 [facility] (Rec: 08/01/20 14:39 [facility] [id number]) OT- Subjective Occupational Therapy Visit Type Type Initial Evaluation Visit Start Time 13:25 Visit Stop Time 14:07 Total Visit Minutes 42 Occupational Therapy Visit Comments Patient Comments Pt agreed to get up for OT eval. Patient/Caregiver Goals To go home. OT Pain Assessment Pain When Pain Assessed At Rest Pain Present Pain Present Denied Pain M4 OT- IP ADL's Start: 08/01/20 14:16 Freq: Status: Active Protocol: Document 08/01/20 13:25 [facility] (Rec: 08/01/20 14:39 [facility] [id number]) OT [id number]-Arivveq Comments OT Self-Feeding Comments NOt at meal time. OT ADL-Grooming Comments OT Grooming Comments Pt states did prior. OT ADL-Dressing General Eval Lower Body Dressing Ability Standby Assistance Comments OT Dressing Comments While seated pt able to ramon/ doff his socks however tends to lean to the left side and having loss of balance but able to get himself back to midline. OT ADL-Toileting General Evaluation Toileting Ability Total Assistance Comments OT Toileting Comments Severino in place. OT ADL-Bathing Comments OT Bathing Comments NOt performed. M5 OT- IP IADL's Start: 08/01/20 14:16 Freq: Status: Active Protocol: Document 08/01/20 13:25 [facility] (Rec: 08/01/20 14:39 [facility] [id number]) OT-Instrumental Activities of Daily Living Home Safety Awareness Awareness of Need for Assistance at Home Decreased Awareness Ability to Problem Solve Emergency Unable to Problem Solve Situations Home Safety Comments Pt unable to recall to call 911 in case of emergency, pt needing increased time to come up with answers. Medication Management Medication Management Caregiver Administers Money Management Money Management Caregiver Provides Assistance Meal Preparation Meal Preparation Caregiver Provides Assist Driving Driving Caregiver Provides Assist M6 OT- IP Functional Cognition Start: 08/01/20 14:16 Freq: Status: Active Protocol: Document 08/01/20 13:25 [facility] (Rec: 08/01/20 14:39 [facility] [id number]) Cognitive Factors Limiting Selfcare Function Cognitive Ability Level of Alertness Alert Patient Orientation Name,Age,Month,Date,Year,Day of Week,Place,Situation Attention Span Ability Capable of Focused Attention, Capable of Sustained Attention Memory Description Short Term Impaired Safety Awareness Underestimates Need for Assistance Problem Solving Ability Needs Assist to Identify Solutions Cognitive Comments Cognitive Assessment Comments Pt has short term memory issues, needing reminders for directions for 9 Hole Peg Test . Pt not able to figure out chart to be able to look up what percentile that he falls into for 9 hole Peg Test for his age group. Pt has poor safety awareness and tends to have the FWW too far in front of him . OT- Vision and Hearing OT- Hearing Assessment OT- Hearing Assessment Hearing Impaired OT- Vision Assessment Visual Acuity Glasses For Reading Visual Convergence WFL Visual Duran WFL Diplopia Present Visual Spacial Neglect Left M7 OT- IP Mobility and Balance Start: 08/01/20 14:16 Freq: Status: Active Protocol: Document 08/01/20 13:25 [facility] (Rec: 08/01/20 14:39 [facility] [id number]) OT- Bed Mobility Assessment Rolling Type of Rolling Roll to Left Level of Assistance Standby Assistance Supine to Sit Supine to Sit Assist Standby Assistance,Bedrails Sit to Supine Sit to Supine Assist Standby Assistance,Bedrails OT-Transfer Assessment Sit to and From Stand Sit to and from Stand Standby Assistance Transfers Transfer Ability Contact Guard Assistance, Minimal Assistance Technique Transfer Destination Bed Transfer Technique Stand Step Pivot Devices Transfer Assistive Devices Gait Belt,Front Wheeled Walker Comments Mobility Comments Increased time for bed mobility to get to the edge of the bed and tends to lean backwards. Sit to stand SBA and CGA with FWW as pt unsteady on his feet. Pt more unsteady while moving backwards on his feet and needing ERICA for balance. OT- Gait Assessment Comments Gait Ability Comments CGA with FWW for level surfaces. OT- Balance Assessment Sitting Balance and Reactions Static Sitting Balance Ability Fair Dynamic Sitting Balance Ability Poor Standing Balance and Reactions Static Standing Balance Ability Fair M8 OT- IP Objective Assessments Start: 08/01/20 14:16 Freq: Status: Active Protocol: Document 08/01/20 13:25 [facility] (Rec: 08/01/20 14:39 [facility] [id number]) OT Gross Range of Motion Upper Extremity Range of Motion Assessment Bilaterally Impaired OT Strength Comments Strength Comments Bilateral shoulder flexion AROM 0-95. OT- Coordination Assessment Upper Extremity Finger to Nose Test Left UE Impaired Comments Coordination Comments Right hand 34 seconds and Left hand 49 seconds. Pt having trouble with in hand manipulation of coins and other small objects. OT-Muscle Tone Assessment Muscle Tone WNL Yes OT Sensation Assessment Comments Summary Comments Intact for light touch. Decreased for proprioception and kinesthesia for left arm. M9 OT- IP Assessment and Plan Start: 08/01/20 14:16 Freq: Status: Active Protocol: Document 08/01/20 13:25 [facility] (Rec: 08/01/20 14:39 [facility] [id number]) OT Summary Assessment and Plan Potential Rehabilitation Potential Good Analytic Complexity at Evaluation Low Summary OT Impairments Range of Motion,Strength, Balance,Coordination, Functional Cognition, Functional Mobility,Grooming, Dressing,Toileting,Bathing, Toilet Transfers,Shower Transfers,Activity Tolerance Progress Towards Goals Slow Progress due to Medical Issues,Slow Progress due to Activity Tolerance,Slow Progress due to Cognition Assessment Summary Pt low complexity and here due to possible ischemic CVA/TIA and now decreased balance, coordination, and having to use FWW for mobility needs. Pt would benefit from acute rehab versus home with home health and 25/11 available assist. However pt's works , therefore acute rehab would be best for the pt at this time. Goals Self-Feeding Goal Independent Grooming Goal Independent Dressing Goal Independent Toileting Goal Independent Bathing Goal Independent Toilet Transfer Goal Independent Shower Transfer Goal Independent Days to Meet Goals 15 Frequency of Treatment Frequency Of Treatment Once a Day Treatment Plan OT Treatment Plan ADL Training,Functional Cognition Training,Functional Mobility,Patient/Family Education,Discharge Planning Other Treatment Recommendations and Next shower Treatment Focus Discharge Recommendations OT Discharge Recommendations Acute Rehab Home Equipment Needs shower chair Transportation Needs at Discharge Private Vehicle
--- NOTE | 2020-08-01 16:44 | P.DS_ITS ---
History of Present Illness History of Present Illness Date Patient Seen: 08/01/20 Chief complaint: Code stroke Narrative: Patient is a 75-year-old male ESTEBAN Abdul former smoker, former drinker with history of depression, alcohol use disorder in sustained remission, history of neuro cognitive disorder presents by EMS as a code stroke. He was activated as a code stroke and taken directly to CT scan on arrival. He was in his normal state of health which is active, ambulatory, conversive and articulate over the course of the day and was last seen normal at 2:30 p.m.. He laid down to take a nap and at 4:30 p.m. he awoke and was found by his to be in the state that he is on his arrival which is confused, slurring words, facial droop, complaining of tingling and weakness of his arm. He has had no fever chills and denies any recent injury. He has had no use of drugs or alcohol. His arrival was 5 hours since last known well and he was outside TPA window from the onset. joined us early and confirmed timing as well as description of significant departure from baseline. states patient is DNR, PCP is Dr. Cartwright Vital signs upon admit temp 97.8?, BP 102/58, HR 63, RR 14, O2 saturation 96% on 2 L nasal cannula. NIH:10 Patient's labs BUN 23, HC03 33, glucose 155, BUN creatinine ratio 27.7, UA negative, drug screen negative. Head/neck CTA:Mild bilateral carotid calcification at the bulbs causing less than 50% stenosis. There is mild atherosclerosis of the intracranial internal carotid arteries but without flow limiting stenosis or occlusion. No intracranial vascular occlusion or aneurysm. Brain CT:No CT evidence of acute intracranial process. Age-ap propriate exam. Chronic changes of chronic sinus disease and prior surgery. Patient had focal neurologic findings 5 hours after last known well. He is activated as code stroke but is outside of any tPA window. LAMBS score 3. No LVO noted on imaging. Patient requires admission for further evaluation and characterization of stroke and likely eval by PT/OT/Speech etc. at bedside in ED understood and agreed with plan care. Dr. Martinez Psych OV note 05/19/20:Esteban Abdul (John) is a 75-year-old male initially referred by PCP Dr. Brooks for evaluation of mood and psychotic symptoms. He has a long history of alcohol and benzodiazepine dependence, and h/o ED visits in 2017 for Wernicke's encephalopathy. He developed auditory hallucinations several years ago, and has no other psychiatric history other than anxiety and what sounds like either OCD or OCPD traits. His initial presentation (July 2017) showed concern for long-term sequelae of alcohol & benzodiazepine use, and with some movements symptoms as well as hallucinations, there was concern for LBD. However, Parkinsonian features resolved with stopping risperidone, and cognitive symptoms have improved overall with more aggressive treatment of depression. 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 Discharge Providers Provider Date of admission: 07/31/20 23:03 Discharge Date: 08/01/20 Primary care physician: Alex Cartwright MD Consults: 07/31/20 23:16 Consult to Discharge Planning Routine Comment: Consult to Occupational Therapy Evaluate & Treat Comment: Physician Instructions: Evaluate and treat Consult to Physical Therapy Evaluate & Treat Comment: Physician Instructions: Evaluate and Treat Consult to Speech Therapy Evaluate & Treat Comment: Physician Instructions: Evaluate and treat Discharge provider: Lanie Yates MD Summary Hospital Course Discharge Diagnosis: 1. Transient ischemic attack 2. History of major depressive disorder 3. Remote history of tobacco dependence 4. History alcohol dependence, in remission Hospital Course: Admitted to the hospital after having an episode at home involving right face weakness right arm weakness right leg weakness and slurred speech. By the time the patient arrived to the floor the symptoms have resolved. His symptoms have been present for several hours. The patient's speech is now back to normal. He has no weakness on the right arm or right leg. His NIH score today is 1. Patient underwent cardiac echo, echo revealed an ejection fraction of 55-60%. There was akinesis of the base an inferior wall. There were no focal wall motion abnormalities. There was mild concentric left ventricular hypertrophy with normal left ventricular volumes. The right ventricle appeared to be normal and unchanged from prior study. Both atria were normal in size but slightly larger than previous. The aortic valve is moderately calcified with moderate to severe aortic stenosis with a peak veloc ity of 3.9 millimeters/second and a median gradient of 34 mm and the severity ratio 0.29. There is moderate aortic regurgitation now present which is new compared to the previous study aortic stenosis is new compared to the previous study. Given patient's symptoms, age, ABCD score of 5 he will be started on dual anti-platelet therapy. Given his new aortic stenosis found on echocardiogram he will be referred back to his primary care provider to arrange for an outpatient ZIO patch. The patient was deemed to be back at his baseline deemed appropriate for discharge and arrangements will be made for him to discharge home. Status at Discharge Cognitive/behavioral status at discharge: oriented Functional status at discharge: independent ambulation Overall status at discharge: patient is back to baseline Time Spent with Patient Time spent: Less than 30 minutes Exam Vital Signs (past 8 hours): - 08/01/20 11:56 08/01/20 16:00 Temperature 98.2 F 97.9 F Pulse Rate 79 87 Respiratory Rate 20 19 Blood Pressure 121/69 127/88 Pulse Oximetry 97 94 Oxygen Delivery Method Room Air Oxygen Flow Rate 0 Narrative Exam Narrative: Pleasant male resting comfortably in no obvious distress HEENT: Normocephalic atraumatic, extraocular muscles are intact, no facial droop, speech is clear Cranial nerves 2-12 are intact, strength is symmetric and equal, sensation grossly intact, reflexes are brisk and equal, NIH score of 1 Lungs: Clear to auscultation Cardiac exam: Regular rate and rhythm normal S1-S2 with a 3/6 systolic ejection murmur Abdomen: Soft nontender nondistended Extremities: No edema Objective Labs Result Diagrams: 07/31/20 19:38 08/01/20 05:05 Labs: Laboratory Results - last 24 hr 07/31/20 07/31/20 07/31/20 19:38 19:38 19:38 WBC 6.9 RBC 4.52 Hgb 15.3 Hct 46.2 MCV 102.2 H MCH 33.9 MCHC 33.2 RDW 14.2 Plt Count 211 Neut % (Auto) 54.9 Lymph % (Auto) 33.3 [place] % (Auto) 7.5 Eos % (Auto) 3.3 Baso % (Auto) 1.0 Neut # (Auto) 3800 Lymph # (Auto) 2300 [place] # (Auto) 500 Eos # (Auto) 200 Baso # (Auto) 100 PT 14.6 H INR 1.3 APTT 35 Sodium 143 Potassium 3.6 Chloride 104 Carbon Dioxide 33 H BUN 23 H Creatinine 0.83 Estimated GFR > 60.0 BUN/Creatinine Ratio 27.7 H Glucose 155 H Hemoglobin A1c Calcium 9.4 Total Bilirubin AST ALT Alkaline Phosphatase Troponin I Total Protein Albumin Globulin Albumin/Globulin Ratio Triglycerides Cholesterol LDL Cholesterol, Calc HDL Cholesterol TSH Urine Color Urine Appearance Urine pH Ur Specific [place] Urine Protein Urine Glucose (UA) Urine Ketones Urine Occult Blood Urine Nitrate Urine Bilirubin Urine Urobilinogen Ur Leukocyte Esterase Urine RBC Urine WBC Ur Squamous Epith Cells Urine Bacteria Urine Mucus Ur Culture Indicated? U Opiates 300ng/mL cut Ur Oxycodone Screen Urine Methadone Screen Ur Barbiturates Screen U Tricyclic Antidepress Ur Phencyclidine Scrn Ur Amphetamines Screen U Methamphetamines Scrn Ur MDMA Scrn (Ecstasy) U Benzodiazepines Scrn Urine Cocaine Screen U Marijuana (THC) Screen SARS-CoV-2 (PCR) 07/31/20 07/31/20 07/31/20 19:38 19:38 19:45 WBC RBC Hgb Hct MCV MCH MCHC RDW Plt Count Neut % (Auto) Lymph % (Auto) [place] % (Auto) Eos % (Auto) Baso % (Auto) Neut # (Auto) Lymph # (Auto) [place] # (Auto) Eos # (Auto) Baso # (Auto) PT INR APTT Sodium Potassium Chloride Carbon Dioxide BUN Creatinine Estimated GFR BUN/Creatinine Ratio Glucose Hemoglobin A1c 5.6 Calcium Total Bilirubin AST ALT Alkaline Phosphatase Troponin I Total Protein Albumin Globulin Albumin/Globulin Ratio Triglycerides Cholesterol LDL Cholesterol, Calc HDL Cholesterol TSH 1.77 Urine Color Urine Appearance Urine pH Ur Specific [place] Urine Protein Urine Glucose (UA) Urine Ketones Urine Occult Blood Urine Nitrate Urine Bilirubin Urine Urobilinogen Ur Leukocyte Esterase Urine RBC Urine WBC Ur Squamous Epith Cells Urine Bacteria Urine Mucus Ur Culture Indicated? U Opiates 300ng/mL cut Ur Oxycodone Screen Urine Methadone Screen Ur Barbiturates Screen U Tricyclic Antidepress Ur Phencyclidine Scrn Ur Amphetamines Screen U Methamphetamines Scrn Ur MDMA Scrn (Ecstasy) U Benzodiazepines Scrn Urine Cocaine Screen U Marijuana (THC) Screen SARS-CoV-2 (PCR) Negative 07/31/20 07/31/20 08/01/20 19:54 19:54 05:05 WBC RBC Hgb Hct MCV MCH MCHC RDW Plt Count Neut % (Auto) Lymph % (Auto) [place] % (Auto) Eos % (Auto) Baso % (Auto) Neut # (Auto) Lymph # (Auto) [place] # (Auto) Eos # (Auto) Baso # (Auto) PT INR APTT Sodium 140 Potassium 4.2 Chloride 110 H Carbon Dioxide 26 BUN 19 Creatinine 0.65 L Estimated GFR > 60.0 BUN/Creatinine Ratio 29.2 H Glucose 81 Hemoglobin A1c Calcium 8.6 Total Bilirubin 0.2 AST 32 ALT 14 Alkaline Phosphatase 71 Troponin I < 0.012 Total Protein 5.9 L Albumin 3.3 L Globulin 2.6 Albumin/Globulin Ratio 1.3 Triglycerides Cholesterol LDL Cholesterol, Calc HDL Cholesterol TSH Urine Color Yellow Urine Appearance Clear Urine pH 5.5 Ur Specific [place] 1.025 Urine Protein Negative Urine Glucose (UA) Negative Urine Ketones Negative Urine Occult Blood Negative Urine Nitrate Negative Urine Bilirubin Negative Urine Urobilinogen 0.2 Ur Leukocyte Esterase Negative Urine RBC None seen Urine WBC 0-1/hpf Ur Squamous Epith Cells 0-1 /hpf Urine Bacteria None seen Urine Mucus 1+ H Ur Culture Indicated? Cult not indicated U Opiates 300ng/mL cut Negative Ur Oxycodone Screen Negative Urine Methadone Screen Negative Ur Barbiturates Screen Negative U Tricyclic Antidepress Positive H Ur Phencyclidine Scrn Negative Ur Amphetamines Screen Negative U Methamphetamines Scrn Negative Ur MDMA Scrn (Ecstasy) Negative U Benzodiazepines Scrn Negative Urine Cocaine Screen Negative U Marijuana (THC) Screen Negative SARS-CoV-2 (PCR) 08/01/20 05:05 WBC RBC Hgb Hct MCV MCH MCHC RDW Plt Count Neut % (Auto) Lymph % (Auto) [place] % (Auto) Eos % (Auto) Baso % (Auto) Neut # (Auto) Lymph # (Auto) [place] # (Auto) Eos # (Auto) Baso # (Auto) PT INR APTT Sodium Potassium Chloride Carbon Dioxide BUN Creatinine Estimated GFR BUN/Creatinine Ratio Glucose Hemoglobin A1c Calcium Total Bilirubin AST ALT Alkaline Phosphatase Troponin I Total Protein Albumin Globulin Albumin/Globulin Ratio Triglycerides 156 H Cholesterol 129 L LDL Cholesterol, Calc 69 HDL Cholesterol 29 L TSH Urine Color Urine Appearance Urine pH Ur Specific [place] Urine Protein Urine Glucose (UA) Urine Ketones Urine Occult Blood Urine Nitrate Urine Bilirubin Urine Urobilinogen Ur Leukocyte Esterase Urine RBC Urine WBC Ur Squamous Epith Cells Urine Bacteria Urine Mucus Ur Culture Indicated? 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 Social History household members: spouse Smoking Status: Former smoker Discharge Assessment & Plan Assessment and Plan Assessment: 1. Transient ischemic attack 2. Moderate to severe aortic stenosis, new since prior echo 3. Aortic regurgitation, mild 4. History of major depression 5. Hyperlipidemia Plan of Treatment: Patient will be discharged home. He will follow-up with Dr. Cartwright to arrange ZIO patch as an outpatient Discharge Plan Discharge Plan Patient Disposition: Home Discharge orders & Medications Prescriptions: New atorvastatin [Lipitor] 20 mg Tablet 80 mg PO BEDTIME Qty: 30 RF: 0 clopidogrel 75 mg Tablet 75 mg PO DAILY Qty: 21 RF: 0 aspirin 81 mg tablet,delayed release (DR/EC) 81 mg PO DAILY Qty: 30 RF: 0 Continued ascorbic acid (vitamin C) 500 mg capsule 500 mg PO DAILY RF: 0 cholecalciferol (vitamin D3) 1,000 unit capsule 1,000 unit PO DAILY RF: 0 vitamin B complex Capsule 1 cap PO DAILY RF: 0 vitamin E (dl, acetate) 1,000 unit capsule 1,000 unit PO DAILY RF: 0 calcium carbonate [Calcium 600] 600 mg calcium (1,500 mg) tablet 600 mg PO DAILY RF: 0 MULTIVITAMIN (#UNI-STRESS) 1 cap PO QDAY Qty: 0 RF: 0 melatonin 3 MG tablet 3 mg PO HS Qty: 0 RF: 0 quetiapine 200 mg tablet 100 mg PO BID Qty: 30 RF: 1 divalproex 250 mg tablet,delayed release (DR/EC) See Rx Instructions PO .COMPLEX Qty: 90 RF: 1 lorazepam 0.5 mg tablet 0.5 mg PO TID PRN (Reason: anxiety) Qty: 90 RF: 1 venlafaxine 150 mg capsule,extended release 24hr 300 mg PO QAM Qty: 60 RF: 5 Discontinued simvastatin 40 MG tablet 40 mg PO HS Qty: 0 RF: 0 Follow up/Referrals: Alex Cartwright MD [Primary Care Provider] - Discharge Health Status Health Concerns: Patient needs an outpatient Zio patch to r/o atrial fibrillation. Needs cardiology consultation given new Aortic Stenosis Diet/Activity/Treatments Diet: Low-sodium Discharge Data Primary Care Provider: Alex Cartwright V Attending Provider: Marie Miller VTE Deep Vein Thrombosis/Pulmonary Embolism Present on Admission: No
--- NOTE | 2020-08-01 18:27 | PC.NURSE ---
Pt given D/C instructions, tele and HL discontinued Home meds retrieved from pharmacy Pt escorted by staff via W/C to waiting vehicle. D/C in stable condition.
--- NOTE | 2020-08-02 08:00 | CM.DPC ---
DCP Discharge Home Per MD, pt's MRI came back and results not especially concerning and after discussion with spouse and pt after SW shift yesterday 08/01/20 evening they determined pt was safe for d/c back home with spouse assist and no further identified discharge planning needs. Plan: Patient discharged home last night after SW shift via spouse POV and no needs at this time other than outpt follow up. BREE [place]
--- NOTE | 2020-08-31 11:38 | PC.NURSE ---
Amend: 08/01 014 Normal Saline completed.
== END 2020-08-01 18:38 | disposition home or self-care (01) ==
LOC: ED 19:43 → AC 08-01 01:04
PROVIDERS: Admitting Provider Nurse Practitioner Family; Emergency Provider Emergency Medicine; PCP Internal Medicine; Referring Provider Emergency Medicine; Visit Provider Nurse Practitioner Family
DX: G45.9 Transient cerebral ischemic attack, unspecified (principal); F10.21 Alcohol dependence, in remission; I35.0 Nonrheumatic aortic (valve) stenosis; I35.1 Nonrheumatic aortic (valve) insufficiency; F41.9 Anxiety disorder, unspecified; R44.0 Auditory hallucinations; F06.8 Other specified mental disorders due to known physiological condition; Z87.891 Personal history of nicotine dependence; E78.5 Hyperlipidemia, unspecified; Z20.822 Contact with and (suspected) exposure to COVID-19
CPT/HCPCS: 36415; 51701; 70450; 70496; 70498; 70548; 70553; 80048; 80053; 80061; 80305; 81001; 82962; 83036; 84443; 84484; 85025; 85610; 85730; 87635; 92523; 93005; 93306; 94762; 96360; 96361; 97161; 97165; 97530; 99285; G0378; Q9967

== ENCOUNTER 2021-05-25 05:34 | Inpatient (IN) | payer MEDICARE, SELFPAY ==
[2020-08-01 01:52] VITALS: BMI 21.6
[2021-05-25] VITALS (11 sets, daily range): BP systolic 102–138; BP diastolic 62–85; PULSE 84–91; RESP 18–27; TEMP 35.5–37.4; O2SAT 93–99; BMI 22.0
--- NOTE | 2021-05-25 05:37 | ED_ITS ---
HPI - Altered Mental Status <Madeline Larkin, DO - Last Filed: 05/28/21 07:40> General Chief Complaint: Neuro Symptoms/Deficit Stated Complaint: Syncope Time Seen by Provider: 05/25/21 05:36 History of Present Illness HPI narrative: The patient is a 76-year-old male is a former drinker with alcohol use disorder history of depression neuro cognitive disorder pros intake today with decreased mental status. According to he is supposed to have a hospice needing to help tomorrow however he has had some decline. He is minimally responsive here but does follow some commands. EMS said that he was hypoxic with oxygen 88-87% on room air currently he is 94% on room air. He has been falling there are some bruises on his head as well. Related Data Home Medications Medication Instructions Recorded Confirmed MULTIVITAMIN (#UNI-STRESS) 1 cap PO QDAY #0 11/14/11 05/25/21 melatonin 3 mg tablet 3 mg PO HS PRN #0 07/15/17 05/25/21 ascorbic acid (vitamin C) 500 mg 500 mg PO DAILY cap 11/03/17 05/25/21 capsule cholecalciferol (vitamin D3) 25 1,000 unit PO DAILY 11/03/17 05/25/21 mcg (1,000 unit) capsule vitamin E (dl, acetate) 450 mg 1,000 unit PO DAILY 12/15/19 05/25/21 (1,000 unit) capsule atorvastatin 80 mg tablet 80 mg PO BEDTIME tab 04/24/21 05/25/21 Previous Rx's Medication Instructions Recorded aspirin 81 mg tablet,delayed 81 mg PO DAILY #30 tab 08/01/20 release clopidogrel 75 mg tablet 75 mg PO DAILY #21 tab 08/01/20 divalproex 500 mg tablet,delayed 500 mg PO BID #180 tab 11/07/20 release lorazepam 0.5 mg tablet 0.5 mg PO TID PRN #90 tab 04/24/21 quetiapine 100 mg tablet 100 mg PO TID #90 tab 04/24/21 amoxicillin 500 mg capsule 500 mg PO Q8H #15 cap 05/27/21 azithromycin 500 mg tablet 500 mg PO DAILY 5 Days #5 tab 05/27/21 venlafaxine 150 mg 300 mg PO QAM #60 cap 05/28/21 capsule,extended release 24 hr Allergies Allergy/AdvReac Type Severity Reaction Status Date / Time No Known Drug Allergies Allergy Verified 04/24/21 14:54 Review of Systems <Madeline Larkin DO - Last Filed: 05/28/21 07:40> Review of Systems ROS Unobtainable: Unobtainable due to medical condition Patient History <Madeline Larkin DO - Last Filed: 05/28/21 07:40> Medical History (Updated 05/25/21 @ 15:49 by Roe Elmore MD) 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 Social History household members: spouse Smoking Status: Former smoker alcohol intake: former Smoking Status: Former smoker alcohol intake frequency: 0-2 drinks per day Substance Use Type: does not use Exam <Madeline Larkin DO - Last Filed: 05/28/21 07:40> Initial Vital Signs Initial Vital Signs: Vital Signs Temperature 96 F L 05/25/21 05:05 Pulse Rate 84 05/25/21 05:05 Respiratory Rate 27 H 05/25/21 05:05 Blood Pressure 135/67 05/25/21 05:05 Pulse Oximetry 93 05/25/21 05:05 GENERAL: Week 76-year-old male appears older than stated age minimally responsive HEENT: Head atraumatic,EOMI, pupils reactive, face symmetric, [moist] mucous membranes CARDIOVASCULAR: Regular rate and rhythm without murmurs, rubs or gallops. RESPIRATORY: Breath sounds equal bilaterally, no wheezes rales or rhonchi. ABDOMEN: Soft, tender suprapubically mild distension noted as well no right upper quadrant pain or epigastric pain : No CVA tenderness EXTREMITIES: Normal range of motion, no clubbing or edema. Neurovascularly intact NEUROLOGICAL: Alert and oriented x0. 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 <Parish Duarte DO - Last Filed: 05/25/21 10:04> Initial Vital Signs Initial Vital Signs: Vital Signs Temperature 96 F L 05/25/21 05:05 Pulse Rate 84 05/25/21 05:05 Respiratory Rate 27 H 05/25/21 05:05 Blood Pressure 135/67 05/25/21 05:05 Pulse Oximetry 93 05/25/21 05:05 Scores <Madeline Larkin, DO - Last Filed: 05/28/21 07:40> GCS [place] coma scale total score: 14 <Parish Duarte, DO - Last Filed: 05/25/21 10:04> GCS [place] coma scale eye opening: Spontaneous [place] coma scale verbal response: Confused [place] coma scale motor response: Obey commands [place] coma scale total score: 14 Course <Madeline Larkin, DO - Last Filed: 05/28/21 07:40> Orders Ordered: Discontinued Medications Acetaminophen (Acetaminophen 325 Mg Tablet) 650 mg PO Q6HR PRN PRN Reason: Fever/Mild Pain (1-3) Aspirin (Aspirin Ec 81 Mg Tablet) 81 mg PO DAILY [facility] Admin: 05/27/21 10:26 Dose: 81 mg Documented by: Admin: 05/26/21 10:39 Dose: 81 mg Documented by: Admin: 05/25/21 15:02 Dose: 81 mg Documented by: SONAL Atorvastatin Calcium (Atorvastatin 20 Mg Tablet) 80 mg PO BEDTIME [facility] Admin: 05/26/21 20:44 Dose: 80 mg Documented by: Admin: 05/25/21 21:02 Dose: 80 mg Documented by: JOSE ALEJANDRO Clopidogrel Bisulfate (Clopidogrel 75 Mg Tablet) 75 mg PO DAILY [facility] Admin: 05/27/21 10:26 Dose: 75 mg Documented by: Admin: 05/26/21 10:38 Dose: 75 mg Documented by: SONAL Divalproex Sodium (Divalproex Dr 250 Mg Tablet) 500 mg PO BID [facility] Admin: 05/27/21 10:26 Dose: 500 mg Documented by: Admin: 05/26/21 20:44 Dose: 500 mg Documented by: Admin: 05/26/21 10:39 Dose: 500 mg Documented by: Admin: 05/25/21 21:03 Dose: 500 mg Documented by: JOSE ALEJANDRO Sodium Chloride (Normal Saline 0.9%) 1,000 mls @ 100 mls/hr IV CONT [facility] Last Infusion: 05/25/21 10:50 Dose: 0 mls/hr Documented by: Admin: 05/25/21 06:30 Dose: 150 mls/hr Documented by: RAMONITA Levofloxacin (Levaquin) 750 mg in 150 mls @ 100 mls/hr IV NOW ONE Stop: 05/25/21 10:07 Last Infusion: 05/25/21 10:46 Dose: 0 mls/hr Documented by: Admin: 05/25/21 08:43 Dose: 100 mls/hr Documented by: SILKE Sodium Chloride (Normal Saline 0.9%) 1,000 mls @ 100 mls/hr IV CONT [facility] Last Admin: 05/25/21 16:37 Dose: Not Given Documented by: SONAL Sodium Chloride (Normal Saline 0.9%) 1,000 mls @ 100 mls/hr IV CONT [facility] Last Admin: 05/27/21 00:30 Dose: 100 mls/hr Documented by: Infusion: 05/26/21 23:34 Dose: 150 mls/hr Documented by: Admin: 05/26/21 16:53 Dose: 150 mls/hr Documented by: Infusion: 05/26/21 16:53 Dose: 150 mls/hr Documented by: Admin: 05/26/21 10:31 Dose: 150 mls/hr Documented by: Infusion: 05/26/21 10:28 Dose: 150 mls/hr Documented by: Admin: 05/26/21 03:47 Dose: 150 mls/hr Documented by: JOSE ALEJANDRO Infusion: 05/26/21 03:43 Dose: 150 mls/hr Documented by: JOSE ALEJANDRO Admin: 05/25/21 21:02 Dose: 150 mls/hr Documented by: JOSE ALEJANDRO Infusion: 05/25/21 21:02 Dose: 150 mls/hr Documented by: JOSE ALEJANDRO Admin: 05/25/21 15:00 Dose: 150 mls/hr Documented by: SONAL Piperacillin Sod/Tazobactam (Sod 3.375 gm/ Sodium Chloride) 100 mls @ 25 mls/hr IV Q8H [facility] Last Admin: 05/27/21 10:25 Dose: 25 mls/hr Documented by: Infusion: 05/27/21 06:22 Dose: 0 mls/hr Documented by: Admin: 05/26/21 23:30 Dose: 25 mls/hr Documented by: Infusion: 05/26/21 20:47 Dose: 25 mls/hr Documented by: Admin: 05/26/21 16:47 Dose: 25 mls/hr Documented by: Infusion: 05/26/21 15:11 Dose: 0 mls/hr Documented by: Admin: 05/26/21 08:41 Dose: 25 mls/hr Documented by: Infusion: 05/26/21 04:04 Dose: 25 mls/hr Documented by: Admin: 05/26/21 00:04 Dose: 25 mls/hr Documented by: JOSE ALEJANDRO Infusion: 05/26/21 00:03 Dose: 0 mls/hr Documented by: JOSE ALEJANDRO Admin: 05/25/21 17:06 Dose: 25 mls/hr Documented by: SONAL Ceftriaxone Sodium 1,000 mg/ (Sodium Chloride) 100 mls @ 200 mls/hr IV Q24H [facility] Last Infusion: 05/27/21 09:34 Dose: 0 mls/hr Documented by: Admin: 05/26/21 15:19 Dose: 200 mls/hr Documented by: SONAL Lorazepam (Lorazepam 0.5 Mg Tablet) 0.5 mg PO TID PRN PRN Reason: anxiety Melatonin (Melatonin 3 Mg Tablet) 3 mg PO BEDTIME PRN PRN Reason: Sleep Naloxone HCl (Naloxone 0.4 Mg/Ml Vial) 0.2 mg IV Q2MIN PRN PRN Reason: Opiate Reversal Quetiapine Fumarate (Quetiapine 100 Mg Tablet) 100 mg PO TID [facility] Quetiapine Fumarate (Quetiapine 100 Mg Tablet) 100 mg PO 1200,2100 [facility] Last Admin: 05/27/21 12:53 Dose: 100 mg Documented by: Admin: 05/26/21 20:44 Dose: 100 mg Documented by: Admin: 05/26/21 12:13 Dose: 100 mg Documented by: Admin: 05/25/21 21:03 Dose: 100 mg Documented by: JOSE ALEJANDRO Admin: 05/25/21 15:02 Dose: 100 mg Documented by: SONAL Venlafaxine HCl (Venlafaxine 37.5 Mg Tablet) 75 mg PO TID [facility] Venlafaxine HCl (Venlafaxine Er 75 Mg Cap) 300 mg PO DAILY [facility] Last Admin: 05/27/21 10:27 Dose: 300 mg Documented by: Admin: 05/26/21 10:39 Dose: 300 mg Documented by: SONAL Vital Signs Vital signs: Vital Signs - 8 hr 05/25/21 05:05 05/25/21 07:29 05/25/21 07:30 Temperature 96 F L Pulse Rate 84 87 85 Respiratory Rate 27 H 22 22 Blood Pressure 135/67 138/74 Pulse Oximetry 93 94 99 05/25/21 08:00 05/25/21 08:30 05/25/21 09:00 Temperature Pulse Rate 86 85 84 Respiratory Rate 21 22 22 Blood Pressure 128/75 122/73 121/63 Pulse Oximetry 95 95 96 05/25/21 09:30 Temperature Pulse Rate 85 Respiratory Rate 20 Blood Pressure 102/62 Pulse Oximetry 93 <Parish Duarte, DO - Last Filed: 05/25/21 10:04> Orders Ordered: Discontinued Medications Acetaminophen (Acetaminophen 325 Mg Tablet) 650 mg PO Q6HR PRN PRN Reason: Fever/Mild Pain (1-3) Aspirin (Aspirin Ec 81 Mg Tablet) 81 mg PO DAILY [facility] Last Admin: 05/27/21 10:26 Dose: 81 mg Documented by: Admin: 05/26/21 10:39 Dose: 81 mg Documented by: Admin: 05/25/21 15:02 Dose: 81 mg Documented by: SONAL Atorvastatin Calcium (Atorvastatin 20 Mg Tablet) 80 mg PO BEDTIME [facility] Last Admin: 05/26/21 20:44 Dose: 80 mg Documented by: Admin: 05/25/21 21:02 Dose: 80 mg Documented by: JOSE ALEJANDRO Clopidogrel Bisulfate (Clopidogrel 75 Mg Tablet) 75 mg PO DAILY [facility] Last Admin: 05/27/21 10:26 Dose: 75 mg Documented by: Admin: 05/26/21 10:38 Dose: 75 mg Documented by: SONAL Divalproex Sodium (Divalproex Dr 250 Mg Tablet) 500 mg PO BID [facility] Last Admin: 05/27/21 10:26 Dose: 500 mg Documented by: Admin: 05/26/21 20:44 Dose: 500 mg Documented by: Admin: 05/26/21 10:39 Dose: 500 mg Documented by: Admin: 05/25/21 21:03 Dose: 500 mg Documented by: JOSE ALEJANDRO Sodium Chloride (Normal Saline 0.9%) 1,000 mls @ 100 mls/hr IV CONT [facility] Last Infusion: 05/25/21 10:50 Dose: 0 mls/hr Documented by: Admin: 05/25/21 06:30 Dose: 150 mls/hr Documented by: RAMONITA Levofloxacin (Levaquin) 750 mg in 150 mls @ 100 mls/hr IV NOW ONE Stop: 05/25/21 10:07 Last Infusion: 05/25/21 10:46 Dose: 0 mls/hr Documented by: Admin: 05/25/21 08:43 Dose: 100 mls/hr Documented by: SILKE Sodium Chloride (Normal Saline 0.9%) 1,000 mls @ 100 mls/hr IV CONT [facility] Last Admin: 05/25/21 16:37 Dose: Not Given Documented by: SONAL Sodium Chloride (Normal Saline 0.9%) 1,000 mls @ 100 mls/hr IV CONT [facility] Last Admin: 05/27/21 00:30 Dose: 100 mls/hr Documented by: Infusion: 05/26/21 23:34 Dose: 150 mls/hr Documented by: Admin: 05/26/21 16:53 Dose: 150 mls/hr Documented by: Infusion: 05/26/21 16:53 Dose: 150 mls/hr Documented by: Admin: 05/26/21 10:31 Dose: 150 mls/hr Documented by: Infusion: 05/26/21 10:28 Dose: 150 mls/hr Documented by: Admin: 05/26/21 03:47 Dose: 150 mls/hr Documented by: JOSE ALEJANDRO Infusion: 05/26/21 03:43 Dose: 150 mls/hr Documented by: JOSE ALEJANDRO Admin: 05/25/21 21:02 Dose: 150 mls/hr Documented by: JOSE ALEJANDRO Infusion: 05/25/21 21:02 Dose: 150 mls/hr Documented by: JOSE ALEJANDRO Admin: 05/25/21 15:00 Dose: 150 mls/hr Documented by: SONAL Piperacillin Sod/Tazobactam (Sod 3.375 gm/ Sodium Chloride) 100 mls @ 25 mls/hr IV Q8H [facility] Last Admin: 05/27/21 10:25 Dose: 25 mls/hr Documented by: Infusion: 05/27/21 06:22 Dose: 0 mls/hr Documented by: Admin: 05/26/21 23:30 Dose: 25 mls/hr Documented by: Infusion: 05/26/21 20:47 Dose: 25 mls/hr Documented by: Admin: 05/26/21 16:47 Dose: 25 mls/hr Documented by: Infusion: 05/26/21 15:11 Dose: 0 mls/hr Documented by: Admin: 05/26/21 08:41 Dose: 25 mls/hr Documented by: Infusion: 05/26/21 04:04 Dose: 25 mls/hr Documented by: Admin: 05/26/21 00:04 Dose: 25 mls/hr Documented by: JOSE ALEJANDRO Infusion: 05/26/21 00:03 Dose: 0 mls/hr Documented by: JOSE ALEJANDRO Admin: 05/25/21 17:06 Dose: 25 mls/hr Documented by: SONAL Ceftriaxone Sodium 1,000 mg/ (Sodium Chloride) 100 mls @ 200 mls/hr IV Q24H [facility] Last Infusion: 05/27/21 09:34 Dose: 0 mls/hr Documented by: Admin: 05/26/21 15:19 Dose: 200 mls/hr Documented by: SONAL Lorazepam (Lorazepam 0.5 Mg Tablet) 0.5 mg PO TID PRN PRN Reason: anxiety Melatonin (Melatonin 3 Mg Tablet) 3 mg PO BEDTIME PRN PRN Reason: Sleep Naloxone HCl (Naloxone 0.4 Mg/Ml Vial) 0.2 mg IV Q2MIN PRN PRN Reason: Opiate Reversal Quetiapine Fumarate (Quetiapine 100 Mg Tablet) 100 mg PO TID [facility] Quetiapine Fumarate (Quetiapine 100 Mg Tablet) 100 mg PO 1200,2100 [facility] Last Admin: 05/27/21 12:53 Dose: 100 mg Documented by: Admin: 05/26/21 20:44 Dose: 100 mg Documented by: Admin: 05/26/21 12:13 Dose: 100 mg Documented by: Admin: 05/25/21 21:03 Dose: 100 mg Documented by: JOSE ALEJANDRO Admin: 05/25/21 15:02 Dose: 100 mg Documented by: SONAL Venlafaxine HCl (Venlafaxine 37.5 Mg Tablet) 75 mg PO TID [facility] Venlafaxine HCl (Venlafaxine Er 75 Mg Cap) 300 mg PO DAILY [facility] Last Admin: 05/27/21 10:27 Dose: 300 mg Documented by: Admin: 05/26/21 10:39 Dose: 300 mg Documented by: SONAL Vital Signs Vital signs: Vital Signs - 8 hr 05/25/21 05:05 05/25/21 07:29 05/25/21 07:30 Temperature 96 F L Pulse Rate 84 87 85 Respiratory Rate 27 H 22 22 Blood Pressure 135/67 138/74 Pulse Oximetry 93 94 99 05/25/21 08:00 05/25/21 08:30 05/25/21 09:00 Temperature Pulse Rate 86 85 84 Respiratory Rate 21 22 22 Blood Pressure 128/75 122/73 121/63 Pulse Oximetry 95 95 96 05/25/21 09:30 Temperature Pulse Rate 85 Respiratory Rate 20 Blood Pressure 102/62 Pulse Oximetry 93 MDM - Altered Mental Status <Madeline Larkin DO - Last Filed: 05/28/21 07:40> Lab Data Result diagrams: 05/27/21 09:00 05/26/21 06:09 Labs: Lab Results 05/25/21 05/25/21 05/25/21 Range/Units 05:30 05:55 05:55 WBC 6.1 (4.5-11.0) X10^3/uL RBC 4.32 L (4.5-5.9) X10^6/uL Hgb 14.8 (13.5-17.5) g/dL Hct 43.0 (41-53) % MCV 99.5 (80-100) fL MCH 34.1 H (26-34) PG MCHC 34.3 (30-36) % RDW 14.3 (11.6-14.8) % Plt Count 161 (150-400) X10^3/uL Neut % (Auto) Not Reportable Lymph % (Auto) Not Reportable [place] % (Auto) Not Reportable Eos % (Auto) Not Reportable Baso % (Auto) Not Reportable Lymph # (Auto) Not Reportable [place] # (Auto) Not Reportable Baso # (Auto) Not Reportable Total Counted 100 Seg Neutrophils % 12.0 L (38-70) % Band Neutrophils % 43.0 H (3-7) % Lymphocytes % (Manual) 25.0 (25-45) % Monocytes % (Manual) 18.0 H (2-11) % Eosinophils % (Manual) (2-4) % Metamyelocytes % 2.0 H (-0) % Myelocytes % (-0) % Neutrophils # (Manual) 3355 (5722-1279) /uL Nucleated RBCs ( - 0) #/Diff Platelet Estimate RBC Morphology Normal morphology Hypochromasia Macrocytosis Sodium 142 (137-145) mmol/L Potassium 4.5 (3.4-5.1) mmol/L Chloride 105 (98-107) mmol/L Carbon Dioxide 30 (22-32) mmol/L BUN 26 H (9-20) mg/dL Creatinine 0.79 (0.66-1.25) mg/dL Estimated GFR > 60.0 (>60) mL/min BUN/Creatinine Ratio 32.9 H (6-22) Glucose 122 H (80-110) mg/dL Lactate (0.7-2.1) mmol/L Calcium 9.4 (8.4-10.2) mg/dL Total Bilirubin 0.5 (0.2-1.3) mg/dL AST 63 H (17-59) IU/L ALT 57 H (<50) IU/L Alkaline Phosphatase 51 (38-126) U/L Ammonia (9-30) umol/L Total Creatine Kinase 86 (55-170) U/L CK-MB (CK-2) TNP CK-MB (CK-2) Rel Index TNP Troponin I 0.015 (0.01-0.034) ng/mL Total Protein 6.6 (6.3-8.2) g/dL Albumin 3.6 (3.5-5.0) g/dL Globulin 3.0 (1.7-4.1) g/dL Albumin/Globulin Ratio 1.2 (1.0-2.8) Lipase 14 L (23-300) U/L Procalcitonin 0.72 H (<0.5) ng/mL TSH (0.47-4.68) uIU/mL Ur Bilirubin Confirm (Negative) Urine RBC (0-5/HPF) Urine WBC (0-5/HPF) Urine Bacteria (None) Hyaline Casts (None) Ur Culture Indicated? Salicylates < 1.0 (<20) mg/dL U Opiates 300ng/mL cut (Negative) Ur Oxycodone Screen (Negative) Urine Methadone Screen (Negative) Acetaminophen < 10 L (10-30) ug/mL Ur Barbiturates Screen (Negative) Phenytoin (10-20) ug/mL U Tricyclic Antidepress (Negative) Ur Phencyclidine Scrn (Negative) Ur Amphetamines Screen (Negative) U Methamphetamines Scrn (Negative) Ur MDMA Scrn (Ecstasy) (Negative) U Benzodiazepines Scrn (Negative) Urine Cocaine Screen (Negative) U Marijuana (THC) Screen (Negative) Ethyl Alcohol < 10 ( - 10) mg/dL SARS-CoV-2 (PCR) Negative (Negative) 05/25/21 05/25/21 05/25/21 Range/Units 05:55 05:55 05:55 WBC (4.5-11.0) X10^3/uL RBC (4.5-5.9) X10^6/uL Hgb (13.5-17.5) g/dL Hct (41-53) % MCV (80-100) fL MCH (26-34) PG MCHC (30-36) % RDW (11.6-14.8) % Plt Count (150-400) X10^3/uL Neut % (Auto) Lymph % (Auto) [place] % (Auto) Eos % (Auto) Baso % (Auto) Lymph # (Auto) [place] # (Auto) Baso # (Auto) Total Counted Seg Neutrophils % (38-70) % Band Neutrophils % (3-7) % Lymphocytes % (Manual) (25-45) % Monocytes % (Manual) (2-11) % Eosinophils % (Manual) (2-4) % Metamyelocytes % (-0) % Myelocytes % (-0) % Neutrophils # (Manual) (5535-3679) /uL Nucleated RBCs ( - 0) #/Diff Platelet Estimate RBC Morphology Hypochromasia Macrocytosis Sodium (137-145) mmol/L Potassium (3.4-5.1) mmol/L Chloride (98-107) mmol/L Carbon Dioxide (22-32) mmol/L BUN (9-20) mg/dL Creatinine (0.66-1.25) mg/dL Estimated GFR (>60) mL/min BUN/Creatinine Ratio (6-22) Glucose (80-110) mg/dL Lactate 1.5 (0.7-2.1) mmol/L Calcium (8.4-10.2) mg/dL Total Bilirubin (0.2-1.3) mg/dL AST (17-59) IU/L ALT (<50) IU/L Alkaline Phosphatase (38-126) U/L Ammonia < 9 L (9-30) umol/L Total Creatine Kinase (55-170) U/L CK-MB (CK-2) CK-MB (CK-2) Rel Index Troponin I (0.01-0.034) ng/mL Total Protein (6.3-8.2) g/dL Albumin (3.5-5.0) g/dL Globulin (1.7-4.1) g/dL Albumin/Globulin Ratio (1.0-2.8) Lipase (23-300) U/L Procalcitonin (<0.5) ng/mL TSH 2.45 (0.47-4.68) uIU/mL Ur Bilirubin Confirm (Negative) Urine RBC (0-5/HPF) Urine WBC (0-5/HPF) Urine Bacteria (None) Hyaline Casts (None) Ur Culture Indicated? Salicylates (<20) mg/dL U Opiates 300ng/mL cut (Negative) Ur Oxycodone Screen (Negative) Urine Methadone Screen (Negative) Acetaminophen (10-30) ug/mL Ur Barbiturates Screen (Negative) Phenytoin (10-20) ug/mL U Tricyclic Antidepress (Negative) Ur Phencyclidine Scrn (Negative) Ur Amphetamines Screen (Negative) U Methamphetamines Scrn (Negative) Ur MDMA Scrn (Ecstasy) (Negative) U Benzodiazepines Scrn (Negative) Urine Cocaine Screen (Negative) U Marijuana (THC) Screen (Negative) Ethyl Alcohol ( - 10) mg/dL SARS-CoV-2 (PCR) (Negative) 05/25/21 05/25/21 05/25/21 Range/Units 05:55 07:10 07:10 WBC (4.5-11.0) X10^3/uL RBC (4.5-5.9) X10^6/uL Hgb (13.5-17.5) g/dL Hct (41-53) % MCV (80-100) fL MCH (26-34) PG MCHC (30-36) % RDW (11.6-14.8) % Plt Count (150-400) X10^3/uL Neut % (Auto) Lymph % (Auto) [place] % (Auto) Eos % (Auto) Baso % (Auto) Lymph # (Auto) [place] # (Auto) Baso # (Auto) Total Counted Seg Neutrophils % (38-70) % Band Neutrophils % (3-7) % Lymphocytes % (Manual) (25-45) % Monocytes % (Manual) (2-11) % Eosinophils % (Manual) (2-4) % Metamyelocytes % (-0) % Myelocytes % (-0) % Neutrophils # (Manual) (9446-1650) /uL Nucleated RBCs ( - 0) #/Diff Platelet Estimate RBC Morphology Hypochromasia Macrocytosis Sodium (137-145) mmol/L Potassium (3.4-5.1) mmol/L Chloride (98-107) mmol/L Carbon Dioxide (22-32) mmol/L BUN (9-20) mg/dL Creatinine (0.66-1.25) mg/dL Estimated GFR (>60) mL/min BUN/Creatinine Ratio (6-22) Glucose (80-110) mg/dL Lactate (0.7-2.1) mmol/L Calcium (8.4-10.2) mg/dL Total Bilirubin (0.2-1.3) mg/dL AST (17-59) IU/L ALT (<50) IU/L Alkaline Phosphatase (38-126) U/L Ammonia (9-30) umol/L Total Creatine Kinase (55-170) U/L CK-MB (CK-2) CK-MB (CK-2) Rel Index Troponin I (0.01-0.034) ng/mL Total Protein (6.3-8.2) g/dL Albumin (3.5-5.0) g/dL Globulin (1.7-4.1) g/dL Albumin/Globulin Ratio (1.0-2.8) Lipase (23-300) U/L Procalcitonin (<0.5) ng/mL TSH (0.47-4.68) uIU/mL Ur Bilirubin Confirm (Negative) Urine RBC None seen (0-5/HPF) Urine WBC None seen (0-5/HPF) Urine Bacteria None seen (None) Hyaline Casts 1-5/lpf (None) Ur Culture Indicated? Cult not indicated Salicylates (<20) mg/dL U Opiates 300ng/mL cut Negative (Negative) Ur Oxycodone Screen Negative (Negative) Urine Methadone Screen Negative (Negative) Acetaminophen (10-30) ug/mL Ur Barbiturates Screen Negative (Negative) Phenytoin < 3.0 L (10-20) ug/mL U Tricyclic Antidepress Positive H (Negative) Ur Phencyclidine Scrn Negative (Negative) Ur Amphetamines Screen Negative (Negative) U Methamphetamines Scrn Negative (Negative) Ur MDMA Scrn (Ecstasy) Negative (Negative) U Benzodiazepines Scrn Positive H (Negative) Urine Cocaine Screen Negative (Negative) U Marijuana (THC) Screen Negative (Negative) Ethyl Alcohol ( - 10) mg/dL SARS-CoV-2 (PCR) (Negative) 05/25/21 05/26/21 05/26/21 Range/Units 07:10 06:09 06:09 WBC 7.4 (4.5-11.0) X10^3/uL RBC 3.94 L (4.5-5.9) X10^6/uL Hgb 13.4 L (13.5-17.5) g/dL Hct 39.6 L (41-53) % MCV 100.3 H (80-100) fL MCH 34.0 (26-34) PG MCHC 34.0 (30-36) % RDW 14.3 (11.6-14.8) % Plt Count 153 (150-400) X10^3/uL Neut % (Auto) Not Reportable Lymph % (Auto) Not Reportable [place] % (Auto) Not Reportable Eos % (Auto) Not Reportable Baso % (Auto) Not Reportable Lymph # (Auto) Not Reportable [place] # (Auto) Not Reportable Baso # (Auto) Not Reportable Total Counted 100 Seg Neutrophils % 38.0 D (38-70) % Band Neutrophils % 21.0 H (3-7) % Lymphocytes % (Manual) 16.0 L (25-45) % Monocytes % (Manual) 17.0 H (2-11) % Eosinophils % (Manual) 3.0 (2-4) % Metamyelocytes % 4.0 H (-0) % Myelocytes % 1.0 H (-0) % Neutrophils # (Manual) 4366 ([id number]) /uL Nucleated RBCs 1 H ( - 0) #/Diff Platelet Estimate Decreased on smear RBC Morphology See below Hypochromasia 1+ H Macrocytosis 1+ H Sodium 140 (137-145) mmol/L Potassium 3.6 (3.4-5.1) mmol/L Chloride 110 H (98-107) mmol/L Carbon Dioxide 29 (22-32) mmol/L BUN 18 (9-20) mg/dL Creatinine 0.80 (0.66-1.25) mg/dL Estimated GFR > 60.0 (>60) mL/min BUN/Creatinine Ratio 22.5 H (6-22) Glucose 87 (80-110) mg/dL Lactate (0.7-2.1) mmol/L Calcium 7.9 L (8.4-10.2) mg/dL Total Bilirubin (0.2-1.3) mg/dL AST (17-59) IU/L ALT (<50) IU/L Alkaline Phosphatase (38-126) U/L Ammonia (9-30) umol/L Total Creatine Kinase (55-170) U/L CK-MB (CK-2) CK-MB (CK-2) Rel Index Troponin I (0.01-0.034) ng/mL Total Protein (6.3-8.2) g/dL Albumin (3.5-5.0) g/dL Globulin (1.7-4.1) g/dL Albumin/Globulin Ratio (1.0-2.8) Lipase (23-300) U/L Procalcitonin (<0.5) ng/mL TSH (0.47-4.68) uIU/mL Ur Bilirubin Confirm Negative (Negative) Urine RBC (0-5/HPF) Urine WBC (0-5/HPF) Urine Bacteria (None) Hyaline Casts (None) Ur Culture Indicated? Salicylates (<20) mg/dL U Opiates 300ng/mL cut (Negative) Ur Oxycodone Screen (Negative) Urine Methadone Screen (Negative) Acetaminophen (10-30) ug/mL Ur Barbiturates Screen (Negative) Phenytoin (10-20) ug/mL U Tricyclic Antidepress (Negative) Ur Phencyclidine Scrn (Negative) Ur Amphetamines Screen (Negative) U Methamphetamines Scrn (Negative) Ur MDMA Scrn (Ecstasy) (Negative) U Benzodiazepines Scrn (Negative) Urine Cocaine Screen (Negative) U Marijuana (THC) Screen (Negative) Ethyl Alcohol ( - 10) mg/dL SARS-CoV-2 (PCR) (Negative) Urine Dip Bedside Urine Glucose Negative Bedside Urine Bilirubin + 1 Bedside Urine Ketone +/- 5 Urine Specific [place] 1.030 Bedside Urine Occult Blood - Negative Bedside Urine pH 6 Bedside Urine Protein + 30 Bedside Urine Urobilinogen - Negative Bedside Urine Nitrite - Negative Bedside Urine Leukocytes - Negative Esterase MDM Narrative Medical decision making narrative: Patient is declining. Supposed be admitted to hospice tomorrow awaiting for , and all results. Patient signed out to Dr. Duarte for further management. Dr duarte: Received turned was able to review the patient is PLOST and does say DNR with comfort measures only. Reviewed the patient's history and physical. Labs performed up to this point. CT scan results which shows findings consistent with partial small bowel obstruction. Labs are relatively unremarkable. Does not have leukocytosis. Lactate is negative. Does have an elevated procalcitonin. Chest x-ray is unremarkable however the CT scan does sh ow concerns for lower lobe pneumonia. Was started on antibiotics. It appears that the patient has declined is been over the past 2 days. I did discuss the need for admission with the patient's who is at bedside. She understands that the bowel obstruction could potentially resolve on its own however could potentially get worse as well however given his decisions on the PLOSt form most likely would not be taken to the operating room. Patient's understands this. She was okay with antibiotics. Patient does seem confused. Discussed the case with MICKEY Stanton the hospital provider who will admit for further evaluation and treatment. <Parish Maloneyradha, - Last Filed: 05/25/21 10:04> Lab Data Labs: Lab Results 05/25/21 05/25/21 05/25/21 Range/Units 05:30 05:55 05:55 WBC 6.1 (4.5-11.0) X10^3/uL RBC 4.32 L (4.5-5.9) X10^6/uL Hgb 14.8 (13.5-17.5) g/dL Hct 43.0 (41-53) % MCV 99.5 (80-100) fL MCH 34.1 H (26-34) PG MCHC 34.3 (30-36) % RDW 14.3 (11.6-14.8) % Plt Count 161 (150-400) X10^3/uL Neut % (Auto) Not Reportable Lymph % (Auto) Not Reportable Morrill % (Auto) Not Reportable Eos % (Auto) Not Reportable Baso % (Auto) Not Reportable Lymph # (Auto) Not Reportable Morrill # (Auto) Not Reportable Baso # (Auto) Not Reportable Total Counted 100 Seg Neutrophils % 12.0 L (38-70) % Band Neutrophils % 43.0 H (3-7) % Lymphocytes % (Manual) 25.0 (25-45) % Monocytes % (Manual) 18.0 H (2-11) % Eosinophils % (Manual) (2-4) % Metamyelocytes % 2.0 H (-0) % Myelocytes % (-0) % Neutrophils # (Manual) 3355 (1764-1563) /uL Nucleated RBCs ( - 0) #/Diff Platelet Estimate RBC Morphology Normal morphology Hypochromasia Macrocytosis Sodium 142 (137-145) mmol/L Potassium 4.5 (3.4-5.1) mmol/L Chloride 105 (98-107) mmol/L Carbon Dioxide 30 (22-32) mmol/L BUN 26 H (9-20) mg/dL Creatinine 0.79 (0.66-1.25) mg/dL Estimated GFR > 60.0 (>60) mL/min BUN/Creatinine Ratio 32.9 H (6-22) Glucose 122 H (80-110) mg/dL Lactate (0.7-2.1) mmol/L Calcium 9.4 (8.4-10.2) mg/dL Total Bilirubin 0.5 (0.2-1.3) mg/dL AST 63 H (17-59) IU/L ALT 57 H (<50) IU/L Alkaline Phosphatase 51 (38-126) U/L Ammonia (9-30) umol/L Total Creatine Kinase 86 (55-170) U/L CK-MB (CK-2) TNP CK-MB (CK-2) Rel Index TNP Troponin I 0.015 (0.01-0.034) ng/mL Total Protein 6.6 (6.3-8.2) g/dL Albumin 3.6 (3.5-5.0) g/dL Globulin 3.0 (1.7-4.1) g/dL Albumin/Globulin Ratio 1.2 (1.0-2.8) Lipase 14 L (23-300) U/L Procalcitonin 0.72 H (<0.5) ng/mL TSH (0.47-4.68) uIU/mL Ur Bilirubin Confirm (Negative) Urine RBC (0-5/HPF) Urine WBC (0-5/HPF) Urine Bacteria (None) Hyaline Casts (None) Ur Culture Indicated? Salicylates < 1.0 (<20) mg/dL U Opiates 300ng/mL cut (Negative) Ur Oxycodone Screen (Negative) Urine Methadone Screen (Negative) Acetaminophen < 10 L (10-30) ug/mL Ur Barbiturates Screen (Negative) Phenytoin (10-20) ug/mL U Tricyclic Antidepress (Negative) Ur Phencyclidine Scrn (Negative) Ur Amphetamines Screen (Negative) U Methamphetamines Scrn (Negative) Ur MDMA Scrn (Ecstasy) (Negative) U Benzodiazepines Scrn (Negative) Urine Cocaine Screen (Negative) U Marijuana (THC) Screen (Negative) Ethyl Alcohol < 10 ( - 10) mg/dL SARS-CoV-2 (PCR) Negative (Negative) 0105/25/21 05/25/21 Range/Units 05:55 05:55 05:55 WBC (4.5-11.0) X10^3/uL RBC (4.5-5.9) X10^6/uL Hgb (13.5-17.5) g/dL Hct (41-53) % MCV (80-100) fL MCH (26-34) PG MCHC (30-36) % RDW (11.6-14.8) % Plt Count (150-400) X10^3/uL Neut % (Auto) Lymph % (Auto) Morrill % (Auto) Eos % (Auto) Baso % (Auto) Lymph # (Auto) Morrill # (Auto) Baso # (Auto) Total Counted Seg Neutrophils % (38-70) % Band Neutrophils % (3-7) % Lymphocytes % (Manual) (25-45) % Monocytes % (Manual) (2-11) % Eosinophils % (Manual) (2-4) % Metamyelocytes % (-0) % Myelocytes % (-0) % Neutrophils # (Manual) (5999-5960) /uL Nucleated RBCs ( - 0) #/Diff Platelet Estimate RBC Morphology Hypochromasia Macrocytosis Sodium (137-145) mmol/L Potassium (3.4-5.1) mmol/L Chloride (98-107) mmol/L Carbon Dioxide (22-32) mmol/L BUN (9-20) mg/dL Creatinine (0.66-1.25) mg/dL Estimated GFR (>60) mL/min BUN/Creatinine Ratio (6-22) Glucose (80-110) mg/dL Lactate 1.5 (0.7-2.1) mmol/L Calcium (8.4-10.2) mg/dL Total Bilirubin (0.2-1.3) mg/dL AST (17-59) IU/L ALT (<50) IU/L Alkaline Phosphatase (38-126) U/L Ammonia < 9 L (9-30) umol/L Total Creatine Kinase (55-170) U/L CK-MB (CK-2) CK-MB (CK-2) Rel Index Troponin I (0.01-0.034) ng/mL Total Protein (6.3-8.2) g/dL Albumin (3.5-5.0) g/dL Globulin (1.7-4.1) g/dL Albumin/Globulin Ratio (1.0-2.8) Lipase (23-300) U/L Procalcitonin (<0.5) ng/mL TSH 2.45 (0.47-4.68) uIU/mL Ur Bilirubin Confirm (Negative) Urine RBC (0-5/HPF) Urine WBC (0-5/HPF) Urine Bacteria (None) Hyaline Casts (None) Ur Culture Indicated? Salicylates (<20) mg/dL U Opiates 300ng/mL cut (Negative) Ur Oxycodone Screen (Negative) Urine Methadone Screen (Negative) Acetaminophen (10-30) ug/mL Ur Barbiturates Screen (Negative) Phenytoin (10-20) ug/mL U Tricyclic Antidepress (Negative) Ur Phencyclidine Scrn (Negative) Ur Amphetamines Screen (Negative) U Methamphetamines Scrn (Negative) Ur MDMA Scrn (Ecstasy) (Negative) U Benzodiazepines Scrn (Negative) Urine Cocaine Screen (Negative) U Marijuana (THC) Screen (Negative) Ethyl Alcohol ( - 10) mg/dL SARS-CoV-2 (PCR) (Negative) 05/25/21 05/25/21 05/25/21 Range/Units 05:55 07:10 07:10 WBC (4.5-11.0) X10^3/uL RBC (4.5-5.9) X10^6/uL Hgb (13.5-17.5) g/dL Hct (41-53) % MCV (80-100) fL MCH (26-34) PG MCHC (30-36) % RDW (11.6-14.8) % Plt Count (150-400) X10^3/uL Neut % (Auto) Lymph % (Auto) Morrill % (Auto) Eos % (Auto) Baso % (Auto) Lymph # (Auto) Morrill # (Auto) Baso # (Auto) Total Counted Seg Neutrophils % (38-70) % Band Neutrophils % (3-7) % Lymphocytes % (Manual) (25-45) % Monocytes % (Manual) (2-11) % Eosinophils % (Manual) (2-4) % Metamyelocytes % (-0) % Myelocytes % (-0) % Neutrophils # (Manual) (6379-0557) /uL Nucleated RBCs ( - 0) #/Diff Platelet Estimate RBC Morphology Hypochromasia Macrocytosis Sodium (137-145) mmol/L Potassium (3.4-5.1) mmol/L Chloride (98-107) mmol/L Carbon Dioxide (22-32) mmol/L BUN (9-20) mg/dL Creatinine (0.66-1.25) mg/dL Estimated GFR (>60) mL/min BUN/Creatinine Ratio (6-22) Glucose (80-110) mg/dL Lactate (0.7-2.1) mmol/L Calcium (8.4-10.2) mg/dL Total Bilirubin (0.2-1.3) mg/dL AST (17-59) IU/L ALT (<50) IU/L Alkaline Phosphatase (38-126) U/L Ammonia (9-30) umol/L Total Creatine Kinase (55-170) U/L CK-MB (CK-2) CK-MB (CK-2) Rel Index Troponin I (0.01-0.034) ng/mL Total Protein (6.3-8.2) g/dL Albumin (3.5-5.0) g/dL Globulin (1.7-4.1) g/dL Albumin/Globulin Ratio (1.0-2.8) Lipase (23-300) U/L Procalcitonin (<0.5) ng/mL TSH (0.47-4.68) uIU/mL Ur Bilirubin Confirm (Negative) Urine RBC None seen (0-5/HPF) Urine WBC None seen (0-5/HPF) Urine Bacteria None seen (None) Hyaline Casts 1-5/lpf (None) Ur Culture Indicated? Cult not indicated Salicylates (<20) mg/dL U Opiates 300ng/mL cut Negative (Negative) Ur Oxycodone Screen Negative (Negative) Urine Methadone Screen Negative (Negative) Acetaminophen (10-30) ug/mL Ur Barbiturates Screen Negative (Negative) Phenytoin < 3.0 L (10-20) ug/mL U Tricyclic Antidepress Positive H (Negative) Ur Phencyclidine Scrn Negative (Negative) Ur Amphetamines Screen Negative (Negative) U Methamphetamines Scrn Negative (Negative) Ur MDMA Scrn (Ecstasy) Negative (Negative) U Benzodiazepines Scrn Positive H (Negative) Urine Cocaine Screen Negative (Negative) U Marijuana (THC) Screen Negative (Negative) Ethyl Alcohol ( - 10) mg/dL SARS-CoV-2 (PCR) (Negative) 05/25/21 05/26/21 05/26/21 Range/Units 07:10 06:09 06:09 WBC 7.4 (4.5-11.0) X10^3/uL RBC 3.94 L (4.5-5.9) X10^6/uL Hgb 13.4 L (13.5-17.5) g/dL Hct 39.6 L (41-53) % MCV 100.3 H (80-100) fL MCH 34.0 (26-34) PG MCHC 34.0 (30-36) % RDW 14.3 (11.6-14.8) % Plt Count 153 (150-400) X10^3/uL Neut % (Auto) Not Reportable Lymph % (Auto) Not Reportable Morrill % (Auto) Not Reportable Eos % (Auto) Not Reportable Baso % (Auto) Not Reportable Lymph # (Auto) Not Reportable Morrill # (Auto) Not Reportable Baso # (Auto) Not Reportable Total Counted 100 Seg Neutrophils % 38.0 D (38-70) % Band Neutrophils % 21.0 H (3-7) % Lymphocytes % (Manual) 16.0 L (25-45) % Monocytes % (Manual) 17.0 H (2-11) % Eosinophils % (Manual) 3.0 (2-4) % Metamyelocytes % 4.0 H (-0) % Myelocytes % 1.0 H (-0) % Neutrophils # (Manual) 4366 (1617-5860) /uL Nucleated RBCs 1 H ( - 0) #/Diff Platelet Estimate Decreased on smear RBC Morphology See below Hypochromasia 1+ H Macrocytosis 1+ H Sodium 140 (137-145) mmol/L Potassium 3.6 (3.4-5.1) mmol/L Chloride 110 H (98-107) mmol/L Carbon Dioxide 29 (22-32) mmol/L BUN 18 (9-20) mg/dL Creatinine 0.80 (0.66-1.25) mg/dL Estimated GFR > 60.0 (>60) mL/min BUN/Creatinine Ratio 22.5 H (6-22) Glucose 87 (80-110) mg/dL Lactate (0.7-2.1) mmol/L Calcium 7.9 L (8.4-10.2) mg/dL Total Bilirubin (0.2-1.3) mg/dL AST (17-59) IU/L ALT (<50) IU/L Alkaline Phosphatase (38-126) U/L Ammonia (9-30) umol/L Total Creatine Kinase (55-170) U/L CK-MB (CK-2) CK-MB (CK-2) Rel Index Troponin I (0.01-0.034) ng/mL Total Protein (6.3-8.2) g/dL Albumin (3.5-5.0) g/dL Globulin (1.7-4.1) g/dL Albumin/Globulin Ratio (1.0-2.8) Lipase (23-300) U/L Procalcitonin (<0.5) ng/mL TSH (0.47-4.68) uIU/mL Ur Bilirubin Confirm Negative (Negative) Urine RBC (0-5/HPF) Urine WBC (0-5/HPF) Urine Bacteria (None) Hyaline Casts (None) Ur Culture Indicated? Salicylates (<20) mg/dL U Opiates 300ng/mL cut (Negative) Ur Oxycodone Screen (Negative) Urine Methadone Screen (Negative) Acetaminophen (10-30) ug/mL Ur Barbiturates Screen (Negative) Phenytoin (10-20) ug/mL U Tricyclic Antidepress (Negative) Ur Phencyclidine Scrn (Negative) Ur Amphetamines Screen (Negative) U Methamphetamines Scrn (Negative) Ur MDMA Scrn (Ecstasy) (Negative) U Benzodiazepines Scrn (Negative) Urine Cocaine Screen (Negative) U Marijuana (THC) Screen (Negative) Ethyl Alcohol ( - 10) mg/dL SARS-CoV-2 (PCR) (Negative) Urine Dip Bedside Urine Glucose Negative Bedside Urine Bilirubin + 1 Bedside Urine Ketone +/- 5 Urine Specific Conway 1.030 Bedside Urine Occult Blood - Negative Bedside Urine pH 6 Bedside Urine Protein + 30 Bedside Urine Urobilinogen - Negative Bedside Urine Nitrite - Negative Bedside Urine Leukocytes - Negative Esterase Imaging Data CT scan - abdomen/pelvis: Radiologist's Impression: [address] [address] [address] Scan Report Signed Patient: Zachary Abdul MR#: [id number] : 1945 Acct:[id number] Age/Sex: 76 / M Date of Service: 05/25/21 Loc: ED Accession Number: [id number] ?? Procedure: CT abdomen pelvis w con Ordering Provider: Madeline Larkin D.O. PROCEDURE:? CT ABDOMEN PELVIS W CON ? INDICATIONS:? pain, confusion ? TECHNIQUE:? After the administration of IV contrast, axial sections were acquired from the lung bases to the pubic symphysis.? Coronal and sagittal reformats were performed.? For radiation dose reduction, the following was used:? automated exposure control, adjustment of mA and/or kV according to patient size. ? COMPARISON:? [facility], CT, ABDOMEN/PELVIS WITH CONTRAST, 11/21/2011, 13:02. ? FINDINGS:? Image quality:? There is mild motion artifact.? ? Lung bases:? There is posterior consolidation within the right lower lobe.? Mild dependent atelectasis is also present bilaterally.? Concentric wall thickening is demonstrated within the visualized distal esophagus.? ? Heart:? Heart is normal in size.? There is a small pericardial effusion. ? ? ABDOMEN: Liver:? FUO Paddock cysts are redemonstrated as well as additional small low- density foci which are too small to characterize but likely represent cysts. Gallbladder:? Within normal limits without gallstones.? ? Biliary ducts:? No biliary ductal dilatation.? ? Pancreas:? Unremarkable.? ? Spleen:? Normal in size.? ? Adrenal Glands:? No adrenal nodules.? ? Kidneys and Ureters:? No hydronephrosis.? ? ? Stomach and Bowel:? There is segmental distention of multiple small bowel loops in the right abdomen which measure up to 4 cm with associated air-fluid levels.? There is a gradual narrowing in the right lower quadrant with a transition point centered in the right hemipelvis on series 2, image 76. This is associated with a short segment of mild colonic wall thickening.? Additional segments of mild colonic wall thickening are also demonstrated along the distended loops of bowel such as on series 2 image 67 and series 2, image 73.? There is also prominent segmental wall thickening and enhancement of the terminal ileum as seen on series 2, image 76. There is mild fluid distention throughout the colon with air-fluid levels suggestive of a gastroenteritis.? Appendix is not discretely well visualized but there is no definite evidence of appendicitis. Peritoneum:? No abnormal intraperitoneal fluid.? No abscess collections or fistulas.? No free air.? ? Ventral Wall: ? No hernia.? Abdominal Nodes:? No retroperitoneal or mesenteric adenopathy by size criteria.? Vessels:? Aorta and inferior vena cava are normal in size.? ? PELVIS: Pelvic Organs:? Unremarkable.? ? Bladder:? There is a Severino catheter within a partially distended urinary bladder.? Mild concentric bladder wall thickening is present.? There is heterogeneous enlargement of the prostate with extension into the base of the bladder.? ? Pelvic Nodes: No enlarged lymph nodes.? Miscellaneous:? There is a moderate to large fat-containing left inguinal hernia. ? Bones:? Visualized osseous structures demonstrate no suspicious focal lesions. ? ? IMPRESSION:? ? 1. Segmental wall thickening of multiple small bowel loops in the right abdomen with a gradual transition point in the right hemipelvis with multiple short segments of mild bowel wall thickening.? 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 ? 2. Multifocal segments of wall thickening as well as prominent wall thickening and enhancement in the terminal ileum are suggestive of Crohn's disease. ? 3. Posterior right lower lobe consolidation likely representing pneumonia. ? 4. Severino catheter within a partially distended urinary bladder.? Concentric bladder wall thickening is present suggestive of cystitis.? Recommend correlation with urinalysis. ? 5. Moderate to large fat-containing left inguinal hernia. ? 6. Concentric wall thickening of the visualized distal esophagus suggestive of a nonspecific esophagitis. ? 7. Small pericardial effusion.? ? ? Dictated by: Rogelio Velasquez M.D. on 05/25/2021 at 7:42 ? ? Approved by: Rogelio Velasquez M.D. on 05/25/2021 at 7:59?? CT scan - head: Radiologist's Impression: [address] [address] [address] Scan Report Signed Patient: Zachary Abdul MR#: [id number] : 1945 Acct:[id number] Age/Sex: 76 / M Date of Service: 05/25/21 Loc: ED Accession Number: [id number] ?? Procedure: CT head/brain wo con Ordering Provider: Madeline Larkin D.O. PROCEDURE:? CT HEAD/BRAIN WO CON ? INDICATIONS:? decreased mental status ? TECHNIQUE:? Noncontrast 4.5 mm thick angled axial sections acquired from the foramen magnum to the vertex, with coronal and sagittal reformats.? For radiation dose reduction, the following was used:? automated exposure control, adjustment of mA and/or kV according to patient size.? ? COMPARISON:? [facility], CT, CT HEAD/BRAIN WO CON, 01/30/2018, 6:04. ? FINDINGS:? Image quality:? Excellent.? ? CSF spaces:? Basal cisterns are patent.? No extra-axial fluid collections.? The ventricles are symmetric in size and shape.? ? Brain:? No intracranial bleeds or masses.? There is cerebral volume loss for age, with resultant ventricular and sulcal prominence.? There are periventricular and deep white matter chronic small vessel ischemic changes.? There is intracranial internal carotid artery atherosclerosis.? ? Skull and face:? Calvarium and visualized facial bones appear intact, without suspicious lesions.? ? Sinuses:? Visualized sinuses and mastoids are clear.? ? IMPRESSION:? ? 1. Age related volume loss and small vessel ischemic change. ? 2. No evidence acute stroke, hemorrhage, or mass. ? ? Comment: Final report is concordant with preliminary interpretation provided by [facility]. ? Dictated by: Calos Ryan M.D. on 05/25/2021 at 8:04 ? ? Approved by: Calos Ryan M.D. on 05/25/2021 at 8:05?? [facility] Narrative Medical decision making narrative: Dr duarte: Received turned was able to review the patient is PLOST and does say DNR with comfort measures only. Reviewed the patient's history and physical. Labs performed up to this point. CT scan results which shows findings consistent with partial small bowel obstruction. Labs are relatively unremarkable. Does not have leukocytosis. Lactate is negative. Does have an elevated procalcitonin. Chest x-ray is unremarkable however the CT scan does show concerns for lower lobe pneumonia. Was started on antibiotics. It appears that the patient has declined is been over the past 2 days. I did discuss the need for admission with the patient's who is at bedside. She understands that the bowel obstruction could potentially resolve on its own however could potentially get worse as well however given his decisions on the PLOSt form most likely would not be taken to the operating room. Patient's understands this. She was okay with antibiotics. Patient does seem confused. Discussed the case with MICKEY Stanton the hospital provider who will admit for further evaluation and treatment. Discharge Plan Departure Patient Disposition: Admitted As Inpatient Clinical Impression: Partial small bowel obstruction, Pneumonia, Altered mental status, Forehead contusion Admit Date/Time: 05/26/21 15:50 Admit Provider: Edith Stanton
--- NOTE | 2021-05-25 05:42 | DI.CT.S_ITS ---
PROCEDURE: CT HEAD/BRAIN WO CON INDICATIONS: decreased mental status TECHNIQUE: Noncontrast 4.5 mm thick angled axial sections acquired from the foramen magnum to the vertex, with coronal and sagittal reformats. For radiation dose reduction, the following was used: automated exposure control, adjustment of mA and/or kV according to patient size. COMPARISON: [facility], CT, CT HEAD/BRAIN WO CON, 01/30/2018, 6:04. FINDINGS: Image quality: Excellent. CSF spaces: Basal cisterns are patent. No extra-axial fluid collections. The ventricles are symmetric in size and shape. Brain: No intracranial bleeds or masses. There is cerebral volume loss for age, with resultant ventricular and sulcal prominence. There are periventricular and deep white matter chronic small vessel ischemic changes. There is intracranial internal carotid artery atherosclerosis. Skull and face: Calvarium and visualized facial bones appear intact, without suspicious lesions. Sinuses: Visualized sinuses and mastoids are clear. IMPRESSION: 1. Age related volume loss and small vessel ischemic change. 2. No evidence acute stroke, hemorrhage, or mass. Comment: Final report is concordant with preliminary interpretation provided by [facility]. Dictated by: Calos Ryan M.D. on 05/25/2021 at 8:04 Approved by: Calos Ryan M.D. on 05/25/2021 at 8:05
--- NOTE | 2021-05-25 05:42 | DI.RAD.S_ITS ---
PROCEDURE: XR CHEST 1V INDICATIONS: short of breath TECHNIQUE: One view of the chest was acquired. COMPARISON: [facility], CT, CT ANGIO HEAD AND NECK, 07/31/2020, 19:39. [facility], CT, CT ABDOMEN PELVIS W CON, 05/25/2021, 7:21. [facility], CR, XR CHEST 1V, 01/30/2018, 5:48. [facility], CR, CHEST 2 VIEW, 04/08/2017, 18:39. FINDINGS: Surgical changes and devices: None. Lungs and pleura: Bibasilar hazy opacity. Diffuse prominence of the interstitial markings, unchanged. Low lung volumes. No pleural effusions or pneumothorax. Mediastinum: Mediastinal contours appear unchanged. Heart size is within normal limits. Bones and chest wall: No suspicious bony lesions. Overlying soft tissues appear unremarkable. IMPRESSION: Low lung volumes. Suspect bibasilar atelectasis. Background of emphysematous change or interstitial lung disease/fibrosis. Dictated by: Tyler Scott M.D. on 05/25/2021 at 8:06 Approved by: Tyler Soctt M.D. on 05/25/2021 at 8:09
--- NOTE | 2021-05-25 05:50 | DI.CT.S_ITS ---
PROCEDURE: CT ABDOMEN PELVIS W CON INDICATIONS: pain, confusion TECHNIQUE: After the administration of IV contrast, axial sections were acquired from the lung bases to the pubic symphysis. Coronal and sagittal reformats were performed. For radiation dose reduction, the following was used: automated exposure control, adjustment of mA and/or kV according to patient size. COMPARISON: [facility], CT, ABDOMEN/PELVIS WITH CONTRAST, 11/21/2011, 13:02. FINDINGS: Image quality: There is mild motion artifact. Lung bases: There is posterior consolidation within the right lower lobe. Mild dependent atelectasis is also present bilaterally. Concentric wall thickening is demonstrated within the visualized distal esophagus. Heart: Heart is normal in size. There is a small pericardial effusion. ABDOMEN: Liver: FUO Paddock cysts are redemonstrated as well as additional small low-density foci which are too small to characterize but likely represent cysts. Gallbladder: Within normal limits without gallstones. Biliary ducts: No biliary ductal dilatation. Pancreas: Unremarkable. Spleen: Normal in size. Adrenal Glands: No adrenal nodules. Kidneys and Ureters: No hydronephrosis. Stomach and Bowel: There is segmental distention of multiple small bowel loops in the right abdomen which measure up to 4 cm with associated air-fluid levels. There is a gradual narrowing in the right lower quadrant with a transition point centered in the right hemipelvis on series 2, image 76. This is associated with a short segment of mild colonic wall thickening. Additional segments of mild colonic wall thickening are also demonstrated along the distended loops of bowel such as on series 2 image 67 and series 2, image 73. There is also prominent segmental wall thickening and enhancement of the terminal ileum as seen on series 2, image 76. There is mild fluid distention throughout the colon with air-fluid levels suggestive of a gastroenteritis. Appendix is not discretely well visualized but there is no definite evidence of appendicitis. Peritoneum: No abnormal intraperitoneal fluid. No abscess collections or fistulas. No free air. Ventral Wall: No hernia. Abdominal Nodes: No retroperitoneal or mesenteric adenopathy by size criteria. Vessels: Aorta and inferior vena cava are normal in size. PELVIS: Pelvic Organs: Unremarkable. Bladder: There is a Severino catheter within a partially distended urinary bladder. Mild concentric bladder wall thickening is present. There is heterogeneous enlargement of the prostate with extension into the base of the bladder. Pelvic Nodes: No enlarged lymph nodes. Miscellaneous: There is a moderate to large fat-containing left inguinal hernia. Bones: Visualized osseous structures demonstrate no suspicious focal lesions. IMPRESSION: 1. Segmental wall thickening of multiple small bowel loops in the right abdomen with a gradual transition point in the right hemipelvis with multiple short segments of mild bowel wall thickening. 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 2. Multifocal segments of wall thickening as well as prominent wall thickening and enhancement in the terminal ileum are suggestive of Crohn's disease. 3. Posterior right lower lobe consolidation likely representing pneumonia. 4. Severino catheter within a partially distended urinary bladder. Concentric bladder wall thickening is present suggestive of cystitis. Recommend correlation with urinalysis. 5. Moderate to large fat-containing left inguinal hernia. 6. Concentric wall thickening of the visualized distal esophagus suggestive of a nonspecific esophagitis. 7. Small pericardial effusion. Dictated by: Rogelio Velasquez M.D. on 05/25/2021 at 7:42 Approved by: Rogelio Velasquez M.D. on 05/25/2021 at 7:59
[2021-05-25 06:19] LABS: Add Manual Diff / Slide Review YES; Hemoglobin 14.8 g/dL (13.5-17.5); Mean Corpuscular HGB Conc 34.3 % (30-36); Mean Corpuscular Hemoglobin 34.1 PG (26-34); Mean Corpuscular Volume 99.5 fL (80-100); Platelet Count 161 X10^3/uL (150-400); Red Blood Cell Count 4.32 X10^6/uL (4.5-5.9); Red Cell Distribution Width 14.3 % (11.6-14.8); White Blood Cell Count 6.1 X10^3/uL (4.5-11.0)
[2021-05-25 06:20] LABS: Lactate (Lactic Acid) 1.5 mmol/L (0.7-2.1)
[2021-05-25 06:22] LABS: Acetaminophen < 10 ug/mL (10-30); Alanine Aminotransferase 57 IU/L (<50); Albumin 3.6 g/dL (3.5-5.0); Albumin Globulin Ratio 1.2 (1.0-2.8); Alkaline Phosphatase 51 U/L (38-126); Aspartate Aminotransferase 63 IU/L (17-59); BUN Creatinine Ratio 32.9 (6-22); Bilirubin Total 0.5 mg/dL (0.2-1.3); Blood Urea Nitrogen 26 mg/dL (9-20); Calcium 9.4 mg/dL (8.4-10.2); Carbon Dioxide 30 mmol/L (22-32); Chloride 105 mmol/L (98-107); Creatine Kinase 86 U/L (55-170); Estimated Glomerular Filt Rate > 60.0 mL/min (>60); Ethanol (ETOH) < 10 mg/dL; Glucose 122 mg/dL (80-110); Lipase 14 U/L (23-300); Salicylate < 1.0 mg/dL (<20); Sodium 142 mmol/L (137-145); Total Protein 6.6 g/dL (6.3-8.2)
[2021-05-25 06:23] LABS: Ammonia (NH3) < 9 umol/L (9-30); HEMOLYSIS 62 (0-50); Potassium 4.5 mmol/L (3.4-5.1)
[2021-05-25] MEDS: SODIUM CHLORIDE 0.9% 1,000 ML 150 ML IV ×3 (06:30→21:02)
[2021-05-25 06:34] LABS: Troponin I 0.015 ng/mL (0.01-0.034)
[2021-05-25 06:37] LABS: COVID19 -Nasal RAPID Negative (Negative)
[2021-05-25 06:39] LABS: Procalcitonin 0.72 ng/mL (<0.5)
[2021-05-25 06:44] LABS: Neutrophils Absolute Manual 3355 /uL (3000-5900); Total Cells Counted 100
[2021-05-25 06:45] LABS: RBC Morphology Normal Morphology
[2021-05-25 06:52] LABS: Thyroid Stimulating Hormone 2.45 uIU/mL (0.47-4.68)
[2021-05-25 07:42] LABS: Ictotest Urine Negative (Negative); Ur Creatinine Normal (Normal); Ur Specific Gravity Normal (Normal); Urine pH Normal (Normal)
[2021-05-25 07:43] LABS: UR Morphine/Opiate cutoff 300 Negative (Negative); Urine Amphetamines Negative (Negative); Urine Barbiturates Negative (Negative); Urine Benzodiazepines Positive (Negative); Urine Cocaine Negative (Negative); Urine MDMA Negative (Negative); Urine Methadone Negative (Negative); Urine Methamphetamines Negative (Negative); Urine Oxycodone Negative (Negative); Urine Phencyclidine Negative (Negative); Urine Tetrahydrocannabinol Negative (Negative); Urine Tricyclic Antidepressant Positive (Negative)
[2021-05-25 07:44] LABS: Bacteria Urine None Seen; Culture Indicated Urine Cult Not Indicated; Hyaline Casts Urine 1-5/LPF; RBC Urine None Seen (0-5/HPF); WBC Urine None Seen (0-5/HPF)
[2021-05-25] MEDS: levoFLOXacin 750 MG/150 ML PIGGYBACK 100 MG IV (08:43)
--- NOTE | 2021-05-25 13:11 | PC.NURSE ---
Assess- Patient admitted for some pneumonia and confusion. He is alert to self and . Skin with some scratches, and bruises, to see specifics please look under physical assessment. BS cta, 90s on 2L. Patient did get agitated with his and wanted to get out of bed but was redirected. He takes ativan 3 times a day for anxiety and agitation. He ate a few bites at lunch and is watching television now.
--- NOTE | 2021-05-25 13:17 | P.HP_ITS ---
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 She stated that he had shallowed in labored breathing that he was shuffling and now is unable to walk at all, he slept all day and complained of stomach pain last night and had an incontinent diarrheal episode yesterday making huge mass in the bathroom. She states the patient has not been eating because with complaints of stomach pain and tried to give him 1 bottle of Ensure. His states that the patient is actually been incontinent for about a month. Patient is regularly seen by Psychiatry for profound depression likely associated to his medical issues and with a past history of alcohol abuse and a current diagnosis of Wernicke's encephalopathy. Patient is a DNR with comfort measures only, this has been discussed with his as to whether not to do any further workup regarding this. In the emergency room they did consult with general surgery who said that he might have a small-bowel obstruction and that they would see him. CT of the abdomen and pelvis indicated findings of bowel wall thickening: ?Segmental wall thickening of multiple small bowel loops in the right abdomen with a gradual transition point in the right hemipelvis with multiple short segments of mild bowel wall thickening.? The findings likely represent a partial obstruction secondary to inflammatory small bowel strictures.?2. Multifocal segments of wall thickening as well as prominent wall thickening and enhancement in the terminal ileum are suggestive of Crohn's disease.? Possibly suggesting a partial small-bowel obstruction. His CBC is unremarkable but he does have a neutrophilic bandemia, mildly elevated glucose at 1:22 a.m., AST 63, ALT 57 ammonia was normal troponin was normal lipase is 14 and mildly elevated procalcitonin of 0.72, UDS were positive for tricyclic antidepressants and benzodiazepines which may be present in his home medications, COVID-19 PCR is negative. 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 Social History: household members spouse Prior Living Arrangements House Safety & Behavioral: Feels Safe in Current Yes Environment Been Physically Hurt or No Threatened By a Person Suicidal Ideation Description None Tobacco & Substance use: Tobacco type cigarettes Smoking Status Former smoker alcohol intake former alcohol intake frequency 0-2 drinks per day Substance Use Type does not use Meds Home Medications and Allergies Home Medications Medication Instructions Recorded Confirmed Type MULTIVITAMIN (#UNI-STRESS) 1 cap PO QDAY #0 11/14/11 05/25/21 History melatonin 3 mg tablet 3 mg PO HS PRN #0 07/15/17 05/25/21 History ascorbic acid (vitamin C) 500 mg 500 mg PO DAILY cap 11/03/17 05/25/21 History capsule cholecalciferol (vitamin D3) 25 1,000 unit PO DAILY 11/03/17 05/25/21 History mcg (1,000 unit) capsule vitamin E (dl, acetate) 450 mg 1,000 unit PO DAILY 12/15/19 05/25/21 History (1,000 unit) capsule aspirin 81 mg tablet,delayed 81 mg PO DAILY #30 tab 08/01/20 05/25/21 Rx release clopidogrel 75 mg tablet 75 mg PO DAILY #21 tab 08/01/20 05/25/21 Rx divalproex 500 mg tablet,delayed 500 mg PO BID #180 tab 11/07/20 05/25/21 Rx release atorvastatin 80 mg tablet 80 mg PO BEDTIME tab 04/24/21 05/25/21 History lorazepam 0.5 mg tablet 0.5 mg PO TID PRN #90 tab 04/24/21 05/25/21 Rx quetiapine 100 mg tablet 100 mg PO TID #90 tab 04/24/21 05/25/21 Rx venlafaxine 75 mg capsule,extended 175 mg PO QAM 05/25/21 History release 24 hr Allergies Allergy/AdvReac Type Severity Reaction Status Date / Time No Known Drug Allergies Allergy Verified 04/24/21 14:54 Review of Systems Review of Systems ROS: Yes unobtainable due to mental status Exam Vital Signs (past 8 hours): - 05/25/21 07:29 05/25/21 07:30 05/25/21 08:00 Temperature Pulse Rate 87 85 86 Respiratory Rate 22 22 21 Blood Pressure 138/74 128/75 Pulse Oximetry 94 99 95 05/25/21 08:30 05/25/21 09:00 05/25/21 09:30 Temperature Pulse Rate 85 84 85 Respiratory Rate 22 22 20 Blood Pressure 122/73 121/63 102/62 Pulse Oximetry 95 96 93 05/25/21 10:00 05/25/21 10:30 05/25/21 10:40 Temperature 97.4 F L 97.7 F Pulse Rate 84 84 87 Respiratory Rate 20 20 22 Blood Pressure 129/67 118/70 124/85 Pulse Oximetry 97 97 95 Oxygen Delivery Method Nasal Cannula Oxygen Flow Rate 1 Narrative Exam Narrative: Gen: Alert, chronically ill appearing 76 y.o. male, very lethargic HEENT: normocephalic, atraumatic, conjunctiva clear, sclera non-icteric, oral mucosa pink and moist Neck: supple, full ROM, no JVD, trachea is midline Resp: Lungs CTA, non-labored breathing CV: RRR, no murmur or rubs Abd: soft, non-tender, normoactive BTs Skin: no lesions or rashes, dry and intact Neuro: Oriented to self only, speech is halting and falls asleep in the middle of his sentances Extremities: moves all 4 extremities, is ambulatory, negative Marifer?s sign Psyche: normal mood and affect. Objective Labs Result Diagrams: 05/25/21 05:55 05/25/21 05:55 Labs: Laboratory Results - last 24 hr 05/25/21 05/25/21 05/25/21 05:30 05:55 05:55 WBC 6.1 RBC 4.32 L Hgb 14.8 Hct 43.0 MCV 99.5 MCH 34.1 H MCHC 34.3 RDW 14.3 Plt Count 161 Neut % (Auto) Not Reportable Lymph % (Auto) Not Reportable [place] % (Auto) Not Reportable Eos % (Auto) Not Reportable Baso % (Auto) Not Reportable Lymph # (Auto) Not Reportable [place] # (Auto) Not Reportable Baso # (Auto) Not Reportable Total Counted 100 Seg Neutrophils % 12.0 L Band Neutrophils % 43.0 H Lymphocytes % (Manual) 25.0 Monocytes % (Manual) 18.0 H Metamyelocytes % 2.0 H Neutrophils # (Manual) 3355 RBC Morphology Normal morphology Sodium 142 Potassium 4.5 Chloride 105 Carbon Dioxide 30 BUN 26 H Creatinine 0.79 Estimated GFR > 60.0 BUN/Creatinine Ratio 32.9 H Glucose 122 H Lactate Calcium 9.4 Total Bilirubin 0.5 AST 63 H ALT 57 H Alkaline Phosphatase 51 Ammonia Total Creatine Kinase 86 CK-MB (CK-2) TNP CK-MB (CK-2) Rel Index TNP Troponin I 0.015 Total Protein 6.6 Albumin 3.6 Globulin 3.0 Albumin/Globulin Ratio 1.2 Lipase 14 L Procalcitonin 0.72 H TSH Ur Bilirubin Confirm Urine RBC Urine WBC Urine Bacteria Hyaline Casts Ur Culture Indicated? Salicylates < 1.0 U Opiates 300ng/mL cut Ur Oxycodone Screen Urine Methadone Screen Acetaminophen < 10 L Ur Barbiturates Screen U Tricyclic Antidepress Ur Phencyclidine Scrn Ur Amphetamines Screen U Methamphetamines Scrn Ur MDMA Scrn (Ecstasy) U Benzodiazepines Scrn Urine Cocaine Screen U Marijuana (THC) Screen Ethyl Alcohol < 10 SARS-CoV-2 (PCR) Negative 05/25/21 05/25/21 05/25/21 05:55 05:55 05:55 WBC RBC Hgb Hct MCV MCH MCHC RDW Plt Count Neut % (Auto) Lymph % (Auto) [place] % (Auto) Eos % (Auto) Baso % (Auto) Lymph # (Auto) [place] # (Auto) Baso # (Auto) Total Counted Seg Neutrophils % Band Neutrophils % Lymphocytes % (Manual) Monocytes % (Manual) Metamyelocytes % Neutrophils # (Manual) RBC Morphology Sodium Potassium Chloride Carbon Dioxide BUN Creatinine Estimated GFR BUN/Creatinine Ratio Glucose Lactate 1.5 Calcium Total Bilirubin AST ALT Alkaline Phosphatase Ammonia < 9 L Total Creatine Kinase CK-MB (CK-2) CK-MB (CK-2) Rel Index Troponin I Total Protein Albumin Globulin Albumin/Globulin Ratio Lipase Procalcitonin TSH 2.45 Ur Bilirubin Confirm Urine RBC Urine WBC Urine Bacteria Hyaline Casts Ur Culture Indicated? Salicylates U Opiates 300ng/mL cut Ur Oxycodone Screen Urine Methadone Screen Acetaminophen Ur Barbiturates Screen U Tricyclic Antidepress Ur Phencyclidine Scrn Ur Amphetamines Screen U Methamphetamines Scrn Ur MDMA Scrn (Ecstasy) U Benzodiazepines Scrn Urine Cocaine Screen U Marijuana (THC) Screen Ethyl Alcohol SARS-CoV-2 (PCR) 05/25/21 05/25/21 05/25/21 07:10 07:10 07:10 WBC RBC Hgb Hct MCV MCH MCHC RDW Plt Count Neut % (Auto) Lymph % (Auto) [place] % (Auto) Eos % (Auto) Baso % (Auto) Lymph # (Auto) [place] # (Auto) Baso # (Auto) Total Counted Seg Neutrophils % Band Neutrophils % Lymphocytes % (Manual) Monocytes % (Manual) Metamyelocytes % Neutrophils # (Manual) RBC Morphology Sodium Potassium Chloride Carbon Dioxide BUN Creatinine Estimated GFR BUN/Creatinine Ratio Glucose Lactate Calcium Total Bilirubin AST ALT Alkaline Phosphatase Ammonia Total Creatine Kinase CK-MB (CK-2) CK-MB (CK-2) Rel Index Troponin I Total Protein Albumin Globulin Albumin/Globulin Ratio Lipase Procalcitonin TSH Ur Bilirubin Confirm Negative Urine RBC None seen Urine WBC None seen Urine Bacteria None seen Hyaline Casts 1-5/lpf Ur Culture Indicated? Cult not indicated Salicylates U Opiates 300ng/mL cut Negative Ur Oxycodone Screen Negative Urine Methadone Screen Negative Acetaminophen Ur Barbiturates Screen Negative U Tricyclic Antidepress Positive H Ur Phencyclidine Scrn Negative Ur Amphetamines Screen Negative U Methamphetamines Scrn Negative Ur MDMA Scrn (Ecstasy) Negative U Benzodiazepines Scrn Positive H Urine Cocaine Screen Negative U Marijuana (THC) Screen Negative Ethyl Alcohol SARS-CoV-2 (PCR) Assessment & Plan Assessment & Plan narrative: Hemal Abdul is placed into observation for supportive treatment of a partial small-bowel obstruction and to assist the family in to securing appropriate placement and or hospice services. 1. Presumed partial small-bowel obstruction, unknown of acute but present on admission * Patient will be put on clear liquid diet with normal saline running at 100 mL/hour 2. Advance care planning * After read viewing the patient's POLST form, he was to be on comfort measures only. Discussed this with his extensively and she does not wish to have him undergo any invasive procedures * Hospice consult has been requested for this patient however it is not likely that they will see him until Friday. 3. 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 t.i.d. 4. Seizure disorder, chronic * Continue home dose of Dilantin 500 mg p.o. b.i.d. * Dilantin level ordered and is pending 5. Severe depression, chronic * He normally takes venlafaxine but appears that he was reduced from a total daily dose of 600 mg to 450 mg a day so he will get 150 mg p.o. t.i.d. 6. History of CVA, chronic * Continue home dose of, and atorvastatin 80 mg p.o. at bedtime VTE Prophylaxis: Wells risk score Enoxaparin 40 mg subQ once daily Bilateral SCDs Patient is placed into observation as his stay is not expected to exceed 2 midnights. FEN: IV fluids: NS at 100 ml/hour, diet: clears, labs: CBC, C/BMP, liver enzymes, [facility] and Hospice referrals made, care and involvement in the patient?s care is appreciated. Dispo: Unknown at this time Code status: DNR/DNI as discussed with the patient's who is his surrogate and POA. [X] I have utilized all available immediate resources to obtain, update, or review of the patient's current medications COVID-19 COVID-19 status: Negative Result date/Date tested (Pos, Neg/Pending): 05/25/21 Time Spent With Patient Critical Care time: I spent a total of [] minutes of critical care time on this patient's care today; this time is exclusive of procedural time. Scores GCS Hobart coma scale eye opening: To sound Yves coma scale verbal response: Confused [place]art coma scale motor response: Localising Hobart coma scale total score: 12 Wells' Criteria for PE Clinical signs and symptoms of DVT: No PE is #1 Dx or equally likely: No Heart rate > 100: No Immobilization at least 3 days or surg in previous 4 weeks: Yes History of PE or DVT: No Hemoptysis: No Malignancy w/Treatment within 6 months or palliative: No Wells' PE Score total: 1.5 Quality VTE Deep Vein Thrombosis/Pulmonary Embolism Present on Admission: No MIPS - Admit I confirm the patient?s Advance Care Plan is present, Code status is documented, Surrogate decision maker is in patient?s record [If Yes, STOP here]: Yes MIPS - DC The patient has current or prior documentation of left ventricular ejection fraction (LVEF) less than 40%, or moderate or severely depressed left ventricular systolic function.: No
[2021-05-25] MEDS: ASPIRIN EC 81 MG TABLET PO (15:02)
[2021-05-25] MEDS: QUETIAPINE 100 MG TABLET PO ×2 (15:02→21:03)
[2021-05-25 15:20] LABS: Phenytoin / Dilantin < 3.0 ug/mL (10-20)
--- NOTE | 2021-05-25 15:45 | P.CONS_ITS ---
History of Present Illness Consult details Date Patient Seen: 05/25/21 Time Patient Seen: 15:45 Chief complaint: Syncope Narrative: Hemal was admitted through the ER today for abdominal discomfort, altered mental status and falls. He reports that he has not been nauseated or vomiting and he has been having liquid bowel movements and flatus. CT scan of the abdomen suggested a small-bowel obstruction. He reports that his abdominal discomfort has been going on for 6 months. He is able to eat whatever he wants and hold it down. His claims that the he is being treated for a pneumonia which was found on the CT scan. They do not want surgery. Meds Home Medications and Allergies Home Medications Medication Instructions Recorded Confirmed Type MULTIVITAMIN (#UNI-STRESS) 1 cap PO QDAY #0 11/14/11 05/25/21 History melatonin 3 mg tablet 3 mg PO HS PRN #0 07/15/17 05/25/21 History ascorbic acid (vitamin C) 500 mg 500 mg PO DAILY cap 11/03/17 05/25/21 History capsule cholecalciferol (vitamin D3) 25 1,000 unit PO DAILY 11/03/17 05/25/21 History mcg (1,000 unit) capsule vitamin E (dl, acetate) 450 mg 1,000 unit PO DAILY 12/15/19 05/25/21 History (1,000 unit) capsule aspirin 81 mg tablet,delayed 81 mg PO DAILY #30 tab 08/01/20 05/25/21 Rx release clopidogrel 75 mg tablet 75 mg PO DAILY #21 tab 08/01/20 05/25/21 Rx divalproex 500 mg tablet,delayed 500 mg PO BID #180 tab 11/07/20 05/25/21 Rx release atorvastatin 80 mg tablet 80 mg PO BEDTIME tab 04/24/21 05/25/21 History lorazepam 0.5 mg tablet 0.5 mg PO TID PRN #90 tab 04/24/21 05/25/21 Rx quetiapine 100 mg tablet 100 mg PO TID #90 tab 04/24/21 05/25/21 Rx venlafaxine 75 mg capsule,extended 175 mg PO QAM 05/25/21 History release 24 hr Allergies Allergy/AdvReac Type Severity Reaction Status Date / Time No Known Drug Allergies Allergy Verified 04/24/21 14:54 Exam Vital Signs (past 8 hours): - 05/25/21 08:00 05/25/21 08:30 05/25/21 09:00 Temperature Pulse Rate 86 85 84 Respiratory Rate 22 22 Blood Pressure 128/75 122/73 121/63 Pulse Oximetry 95 95 96 05/25/21 09:30 05/25/21 10:00 05/25/21 10:30 Temperature 97.4 F L Pulse Rate 85 84 84 Respiratory Rate 20 20 20 Blood Pressure 102/62 129/67 118/70 Pulse Oximetry 93 97 97 05/25/21 10:40 Temperature 97.7 F Pulse Rate 87 Respiratory Rate 22 Blood Pressure 124/85 Pulse Oximetry 95 Oxygen Delivery Method Nasal Cannula Oxygen Flow Rate 1 Const General: No acute distress Resp Effort & Inspection: normal respiratory effort GI Palpation: soft and No tender Objective Labs Result Diagrams: 05/25/21 05:55 05/25/21 05:55 Labs: Laboratory Results - last 24 hr 05/25/21 05/25/21 05/25/21 05:30 05:55 05:55 WBC 6.1 RBC 4.32 L Hgb 14.8 Hct 43.0 MCV 99.5 MCH 34.1 H MCHC 34.3 RDW 14.3 Plt Count 161 Neut % (Auto) Not Reportable Lymph % (Auto) Not Reportable [place] % (Auto) Not Reportable Eos % (Auto) Not Reportable Baso % (Auto) Not Reportable Lymph # (Auto) Not Reportable [place] # (Auto) Not Reportable Baso # (Auto) Not Reportable Total Counted 100 Seg Neutrophils % 12.0 L Band Neutrophils % 43.0 H Lymphocytes % (Manual) 25.0 Monocytes % (Manual) 18.0 H Metamyelocytes % 2.0 H Neutrophils # (Manual) 3355 RBC Morphology Normal morphology Sodium 142 Potassium 4.5 Chloride 105 Carbon Dioxide 30 BUN 26 H Creatinine 0.79 Estimated GFR > 60.0 BUN/Creatinine Ratio 32.9 H Glucose 122 H Lactate Calcium 9.4 Total Bilirubin 0.5 AST 63 H ALT 57 H Alkaline Phosphatase 51 Ammonia Total Creatine Kinase 86 CK-MB (CK-2) TNP CK-MB (CK-2) Rel Index TNP Troponin I 0.015 Total Protein 6.6 Albumin 3.6 Globulin 3.0 Albumin/Globulin Ratio 1.2 Lipase 14 L Procalcitonin 0.72 H TSH Ur Bilirubin Confirm Urine RBC Urine WBC Urine Bacteria Hyaline Casts Ur Culture Indicated? Salicylates < 1.0 U Opiates 300ng/mL cut Ur Oxycodone Screen Urine Methadone Screen Acetaminophen < 10 L Ur Barbiturates Screen Phenytoin U Tricyclic Antidepress Ur Phencyclidine Scrn Ur Amphetamines Screen U Methamphetamines Scrn Ur MDMA Scrn (Ecstasy) U Benzodiazepines Scrn Urine Cocaine Screen U Marijuana (THC) Screen Ethyl Alcohol < 10 SARS-CoV-2 (PCR) Negative 05/25/21 05/25/21 05/25/21 05:55 05:55 05:55 WBC RBC Hgb Hct MCV MCH MCHC RDW Plt Count Neut % (Auto) Lymph % (Auto) [place] % (Auto) Eos % (Auto) Baso % (Auto) Lymph # (Auto) [place] # (Auto) Baso # (Auto) Total Counted Seg Neutrophils % Band Neutrophils % Lymphocytes % (Manual) Monocytes % (Manual) Metamyelocytes % Neutrophils # (Manual) RBC Morphology Sodium Potassium Chloride Carbon Dioxide BUN Creatinine Estimated GFR BUN/Creatinine Ratio Glucose Lactate 1.5 Calcium Total Bilirubin AST ALT Alkaline Phosphatase Ammonia < 9 L Total Creatine Kinase CK-MB (CK-2) CK-MB (CK-2) Rel Index Troponin I Total Protein Albumin Globulin Albumin/Globulin Ratio Lipase Procalcitonin TSH 2.45 Ur Bilirubin Confirm Urine RBC Urine WBC Urine Bacteria Hyaline Casts Ur Culture Indicated? Salicylates U Opiates 300ng/mL cut Ur Oxycodone Screen Urine Methadone Screen Acetaminophen Ur Barbiturates Screen Phenytoin U Tricyclic Antidepress Ur Phencyclidine Scrn Ur Amphetamines Screen U Methamphetamines Scrn Ur MDMA Scrn (Ecstasy) U Benzodiazepines Scrn Urine Cocaine Screen U Marijuana (THC) Screen Ethyl Alcohol SARS-CoV-2 (PCR) 05/25/21 05/25/21 05/25/21 05:55 07:10 07:10 WBC RBC Hgb Hct MCV MCH MCHC RDW Plt Count Neut % (Auto) Lymph % (Auto) [place] % (Auto) Eos % (Auto) Baso % (Auto) Lymph # (Auto) [place] # (Auto) Baso # (Auto) Total Counted Seg Neutrophils % Band Neutrophils % Lymphocytes % (Manual) Monocytes % (Manual) Metamyelocytes % Neutrophils # (Manual) RBC Morphology Sodium Potassium Chloride Carbon Dioxide BUN Creatinine Estimated GFR BUN/Creatinine Ratio Glucose Lactate Calcium Total Bilirubin AST ALT Alkaline Phosphatase Ammonia Total Creatine Kinase CK-MB (CK-2) CK-MB (CK-2) Rel Index Troponin I Total Protein Albumin Globulin Albumin/Globulin Ratio Lipase Procalcitonin TSH Ur Bilirubin Confirm Urine RBC None seen Urine WBC None seen Urine Bacteria None seen Hyaline Casts 1-5/lpf Ur Culture Indicated? Cult not indicated Salicylates U Opiates 300ng/mL cut Negative Ur Oxycodone Screen Negative Urine Methadone Screen Negative Acetaminophen Ur Barbiturates Screen Negative Phenytoin < 3.0 L U Tricyclic Antidepress Positive H Ur Phencyclidine Scrn Negative Ur Amphetamines Screen Negative U Methamphetamines Scrn Negative Ur MDMA Scrn (Ecstasy) Negative U Benzodiazepines Scrn Positive H Urine Cocaine Screen Negative U Marijuana (THC) Screen Negative Ethyl Alcohol SARS-CoV-2 (PCR) 05/25/21 07:10 WBC RBC Hgb Hct MCV MCH MCHC RDW Plt Count Neut % (Auto) Lymph % (Auto) [place] % (Auto) Eos % (Auto) Baso % (Auto) Lymph # (Auto) [place] # (Auto) Baso # (Auto) Total Counted Seg Neutrophils % Band Neutrophils % Lymphocytes % (Manual) Monocytes % (Manual) Metamyelocytes % Neutrophils # (Manual) RBC Morphology Sodium Potassium Chloride Carbon Dioxide BUN Creatinine Estimated GFR BUN/Creatinine Ratio Glucose Lactate Calcium Total Bilirubin AST ALT Alkaline Phosphatase Ammonia Total Creatine Kinase CK-MB (CK-2) CK-MB (CK-2) Rel Index Troponin I Total Protein Albumin Globulin Albumin/Globulin Ratio Lipase Procalcitonin TSH Ur Bilirubin Confirm Negative Urine RBC Urine WBC Urine Bacteria Hyaline Casts Ur Culture Indicated? 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 Social History household members: spouse Tobacco & Substance Use Smoking Status: Former smoker alcohol intake: former Assessment & Plan Assessment and plan (1) Abnormal finding on imaging: Status: Acute Plan No suspicion of bowel obstruction from a clinical standpoint. He may have an ileus due to his pneumonia. I do not plan to see him unless asked. Time Spent With Patient Critical Care time: I spent a total of [] minutes of critical care time on this patient's care today; this time is exclusive of procedural time.
[2021-05-25] MEDS: PIPERACILLIN/TAZO 3.375 GM in SODIUM CHLORIDE 0.9% 100 ML 25 ML IV (17:06)
--- NOTE | 2021-05-25 17:10 | PM.CN ---
History of Present Illness Consult details Date Patient Seen: 05/25/21 Time Patient Seen: 12:30 Chief complaint: Syncope Reason for consult: Continuity of care from outpatient Requesting provider: Edith Stanton Narrative: Patient seen individually & briefly at 1230, then together with his at 1715 HOSPITAL COURSE: Brought to emergency room by after falls and significant change in mental status, acute supervisor records change recent days Cooperative in hospital, and improvement after starting antibiotics INTERVIEW: 1230: Hemal seems to have difficulty recognizing me or sustaining attention to interview. Better with my mask removed, and known difficulty hearing. Very soft speech & one word answers, so very difficult to discern any responses 1715: Clearly recognizes this provider, states he is feeling ?better?. eating some soup & jello at time of visit. Does not remember much about events prior to coming to the hospital. Still mostly one word answers to questions, and so much of my communication was with pt's . Hemal had not been making physical complaints but was much less steady, falling, then acute change right before coming to the hospital. She reports him being very stiff, flexing arms up toward chest, unable to walk or talk. PAST PSYCHIATRIC HISTORY: Of note, we have been trying adjustment of psychotropic medications recently, includin04/24/21 quetiapine from 100mg BID to 100mg TID (ultimately worse) 05/09/21: venlafaxine ER decrease from 300mg to 225mg MENTAL STATUS EXAM Appearance: unkempt, in hospital garb; dentures not present on initial interview Behavior: Fair eye contact during 2nd visit, + psychomotor slowing compared to baseline Speech: Soft, largely one-word answers with me Mood: Better at time of later visit Affect: Constricted Thought Process: difficult to assess; possible paucity of thought Thought Content: unable to assess due to altered mental status; Attention: distractible Orientation: unable to assess due to altered mental status Memory: Intact for interview, not formally tested Insight: limited Judgment: limited Meds Home Medications and Allergies Home Medications Medication Instructions Recorded Confirmed Type MULTIVITAMIN (#UNI-STRESS) 1 cap PO QDAY #0 11/14/11 05/25/21 History melatonin 3 mg tablet 3 mg PO HS PRN #0 07/15/17 05/25/21 History ascorbic acid (vitamin C) 500 mg 500 mg PO DAILY cap 11/03/17 05/25/21 History capsule cholecalciferol (vitamin D3) 25 1,000 unit PO DAILY 11/03/17 05/25/21 History mcg (1,000 unit) capsule vitamin E (dl, acetate) 450 mg 1,000 unit PO DAILY 12/15/19 05/25/21 History (1,000 unit) capsule aspirin 81 mg tablet,delayed 81 mg PO DAILY #30 tab 08/01/20 05/25/21 Rx release clopidogrel 75 mg tablet 75 mg PO DAILY #21 tab 08/01/20 05/25/21 Rx divalproex 500 mg tablet,delayed 500 mg PO BID #180 tab 11/07/20 05/25/21 Rx release atorvastatin 80 mg tablet 80 mg PO BEDTIME tab 04/24/21 05/25/21 History lorazepam 0.5 mg tablet 0.5 mg PO TID PRN #90 tab 04/24/21 05/25/21 Rx quetiapine 100 mg tablet 100 mg PO TID #90 tab 04/24/21 05/25/21 Rx venlafaxine 75 mg capsule,extended 175 mg PO QAM 05/25/21 History release 24 hr Allergies Allergy/AdvReac Type Severity Reaction Status Date / Time No Known Drug Allergies Allergy Verified 04/24/21 14:54 Review of Systems Constitutional Constitutional: Denies fever(s) Musculoskeletal Musculoskeletal: Reports stiffness Psychiatric Psychiatric: Reports as per HPI Exam Vital Signs (past 8 hours): - 05/25/21 09:30 05/25/21 10:00 05/25/21 10:30 Temperature 97.4 F L Pulse Rate 85 84 84 Respiratory Rate 20 20 20 Blood Pressure 102/62 129/67 118/70 Pulse Oximetry 93 97 97 05/25/21 10:40 Temperature 97.7 F Pulse Rate 87 Respiratory Rate 22 Blood Pressure 124/85 Pulse Oximetry 95 Oxygen Delivery Method Nasal Cannula Oxygen Flow Rate 1 Objective Labs Result Diagrams: 05/25/21 05:55 05/25/21 05:55 Labs: Laboratory Results - last 24 hr 05/25/21 05/25/21 05/25/21 05:30 05:55 05:55 WBC 6.1 RBC 4.32 L Hgb 14.8 Hct 43.0 MCV 99.5 MCH 34.1 H MCHC 34.3 RDW 14.3 Plt Count 161 Neut % (Auto) Not Reportable Lymph % (Auto) Not Reportable [place] % (Auto) Not Reportable Eos % (Auto) Not Reportable Baso % (Auto) Not Reportable Lymph # (Auto) Not Reportable [place] # (Auto) Not Reportable Baso # (Auto) Not Reportable Total Counted 100 Seg Neutrophils % 12.0 L Band Neutrophils % 43.0 H Lymphocytes % (Manual) 25.0 Monocytes % (Manual) 18.0 H Metamyelocytes % 2.0 H Neutrophils # (Manual) 3355 RBC Morphology Normal morphology Sodium 142 Potassium 4.5 Chloride 105 Carbon Dioxide 30 BUN 26 H Creatinine 0.79 Estimated GFR > 60.0 BUN/Creatinine Ratio 32.9 H Glucose 122 H Lactate Calcium 9.4 Total Bilirubin 0.5 AST 63 H ALT 57 H Alkaline Phosphatase 51 Ammonia Total Creatine Kinase 86 CK-MB (CK-2) TNP CK-MB (CK-2) Rel Index TNP Troponin I 0.015 Total Protein 6.6 Albumin 3.6 Globulin 3.0 Albumin/Globulin Ratio 1.2 Lipase 14 L Procalcitonin 0.72 H TSH Ur Bilirubin Confirm Urine RBC Urine WBC Urine Bacteria Hyaline Casts Ur Culture Indicated? Salicylates < 1.0 U Opiates 300ng/mL cut Ur Oxycodone Screen Urine Methadone Screen Acetaminophen < 10 L Ur Barbiturates Screen Phenytoin U Tricyclic Antidepress Ur Phencyclidine Scrn Ur Amphetamines Screen U Methamphetamines Scrn Ur MDMA Scrn (Ecstasy) U Benzodiazepines Scrn Urine Cocaine Screen U Marijuana (THC) Screen Ethyl Alcohol < 10 SARS-CoV-2 (PCR) Negative 05/25/21 05/25/21 05/25/21 05:55 05:55 05:55 WBC RBC Hgb Hct MCV MCH MCHC RDW Plt Count Neut % (Auto) Lymph % (Auto) [place] % (Auto) Eos % (Auto) Baso % (Auto) Lymph # (Auto) [place] # (Auto) Baso # (Auto) Total Counted Seg Neutrophils % Band Neutrophils % Lymphocytes % (Manual) Monocytes % (Manual) Metamyelocytes % Neutrophils # (Manual) RBC Morphology Sodium Potassium Chloride Carbon Dioxide BUN Creatinine Estimated GFR BUN/Creatinine Ratio Glucose Lactate 1.5 Calcium Total Bilirubin AST ALT Alkaline Phosphatase Ammonia < 9 L Total Creatine Kinase CK-MB (CK-2) CK-MB (CK-2) Rel Index Troponin I Total Protein Albumin Globulin Albumin/Globulin Ratio Lipase Procalcitonin TSH 2.45 Ur Bilirubin Confirm Urine RBC Urine WBC Urine Bacteria Hyaline Casts Ur Culture Indicated? Salicylates U Opiates 300ng/mL cut Ur Oxycodone Screen Urine Methadone Screen Acetaminophen Ur Barbiturates Screen Phenytoin U Tricyclic Antidepress Ur Phencyclidine Scrn Ur Amphetamines Screen U Methamphetamines Scrn Ur MDMA Scrn (Ecstasy) U Benzodiazepines Scrn Urine Cocaine Screen U Marijuana (THC) Screen Ethyl Alcohol SARS-CoV-2 (PCR) 05/25/21 05/25/21 05/25/21 05:55 07:10 07:10 WBC RBC Hgb Hct MCV MCH MCHC RDW Plt Count Neut % (Auto) Lymph % (Auto) [place] % (Auto) Eos % (Auto) Baso % (Auto) Lymph # (Auto) [place] # (Auto) Baso # (Auto) Total Counted Seg Neutrophils % Band Neutrophils % Lymphocytes % (Manual) Monocytes % (Manual) Metamyelocytes % Neutrophils # (Manual) RBC Morphology Sodium Potassium Chloride Carbon Dioxide BUN Creatinine Estimated GFR BUN/Creatinine Ratio Glucose Lactate Calcium Total Bilirubin AST ALT Alkaline Phosphatase Ammonia Total Creatine Kinase CK-MB (CK-2) CK-MB (CK-2) Rel Index Troponin I Total Protein Albumin Globulin Albumin/Globulin Ratio Lipase Procalcitonin TSH Ur Bilirubin Confirm Urine RBC None seen Urine WBC None seen Urine Bacteria None seen Hyaline Casts 1-5/lpf Ur Culture Indicated? Cult not indicated Salicylates U Opiates 300ng/mL cut Negative Ur Oxycodone Screen Negative Urine Methadone Screen Negative Acetaminophen Ur Barbiturates Screen Negative Phenytoin < 3.0 L U Tricyclic Antidepress Positive H Ur Phencyclidine Scrn Negative Ur Amphetamines Screen Negative U Methamphetamines Scrn Negative Ur MDMA Scrn (Ecstasy) Negative U Benzodiazepines Scrn Positive H Urine Cocaine Screen Negative U Marijuana (THC) Screen Negative Ethyl Alcohol SARS-CoV-2 (PCR) 05/25/21 07:10 WBC RBC Hgb Hct MCV MCH MCHC RDW Plt Count Neut % (Auto) Lymph % (Auto) [place] % (Auto) Eos % (Auto) Baso % (Auto) Lymph # (Auto) [place] # (Auto) Baso # (Auto) Total Counted Seg Neutrophils % Band Neutrophils % Lymphocytes % (Manual) Monocytes % (Manual) Metamyelocytes % Neutrophils # (Manual) RBC Morphology Sodium Potassium Chloride Carbon Dioxide BUN Creatinine Estimated GFR BUN/Creatinine Ratio Glucose Lactate Calcium Total Bilirubin AST ALT Alkaline Phosphatase Ammonia Total Creatine Kinase CK-MB (CK-2) CK-MB (CK-2) Rel Index Troponin I Total Protein Albumin Globulin Albumin/Globulin Ratio Lipase Procalcitonin TSH Ur Bilirubin Confirm Negative Urine RBC Urine WBC Urine Bacteria Hyaline Casts Ur Culture Indicated? 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 Social History household members: spouse Tobacco & Substance Use Smoking Status: Former smoker alcohol intake: former Assessment & Plan Assessment and plan (1) Altered mental status: Status: Acute (2) Major neurocognitive disorder due to multiple etiologies: Status: Chronic (3) Pneumonia: Status: Acute (4) Major depressive disorder, recurrent episode, moderate with mood-congruent psychotic features: Status: Acute Plan ASSESSMENT: Hemal Abdul is a 76-year-old male, known to this provider from outpatient care at admitted for acute change in mental status, now suspected pneumonia. His recent course of illness sounds consistent with hypoactive delirium, I suspect due to underlying infection. Although his dose of venlafaxine was decreased slightly 2 weeks ago, I doubt that discontinuation effects from SNRI could better explain presentation. Also, Shari's description of extreme rigidity prior to admission raises concerns about other potentials such as neuroleptic malignant syndrome; but with no fever or autonomic instability this is currently less likely. I am hopeful that his response to antibiotics means that acute mental status change is most likely due to delirium and will continue to improve. However, this is a complex case psychiatrically & I am happy to follow with the medical team next week if appropriate. DIAGNOSES: Likely hypoactive delirium due to infection Major neurocognitive disorder Major depressive disorder Auditory hallucinations at baseline RECOMMENDATIONS: Continue home psychotropic medications as below, only change is increase venlafaxine back to 300mg dose - Venlafaxine ER 300mg QAM for depression - Depakote DR 500mg BID for anxiety & mood - Quetiapine 100mg at noon and bedtime for hallucinations - Lorazepam 0.5mg TID for anxiety # If any significant elevation in temperature, evaluate for NMS & consider stopping quetiapine Thank you for involving me in this patient's care. I am off campus over the weekend (available via cell if emergent need); if patient is still admitted on Friday05/28/21 I will follow-up at that time. Please contact me with questions or concerns at [phone]. Time Spent With Patient Time with patient: 30 to 49 minutes with 50% spent counseling/coordinating care
[2021-05-25] MEDS: ATORVASTATIN 20 MG TABLET 80 MG PO (21:02)
[2021-05-25] MEDS: DIVALPROEX DR 250 MG TABLET 500 MG PO (21:03)
[2021-05-26] MEDS: PIPERACILLIN/TAZO 3.375 GM in SODIUM CHLORIDE 0.9% 100 ML 25 ML IV ×4 (00:04→23:30)
[2021-05-26 00:17] VITALS: BP 125/67; PULSE 83; RESP 18; TEMP 36.3; O2SAT 94
[2021-05-26] MEDS: SODIUM CHLORIDE 0.9% 1,000 ML 150 ML IV ×3 (03:47→16:53)
[2021-05-26 04:22] VITALS: BP 132/78; PULSE 90; RESP 18; TEMP 36.3; O2SAT 94
[2021-05-26 07:00] LABS: Hematocrit 39.6 % (41-53); Hemoglobin 13.4 g/dL (13.5-17.5); Mean Corpuscular Volume 100.3 fL (80-100); Platelet Count 153 X10^3/uL (150-400); Red Blood Cell Count 3.94 X10^6/uL (4.5-5.9); Red Cell Distribution Width 14.3 % (11.6-14.8); White Blood Cell Count 7.4 X10^3/uL (4.5-11.0)
[2021-05-26 07:06] LABS: BUN Creatinine Ratio 22.5 (6-22); Blood Urea Nitrogen 18 mg/dL (9-20); Calcium 7.9 mg/dL (8.4-10.2); Carbon Dioxide 29 mmol/L (22-32); Chloride 110 mmol/L (98-107); Estimated Glomerular Filt Rate > 60.0 mL/min (>60); Glucose 87 mg/dL (80-110); HEMOLYSIS < 15 (0-50); Potassium 3.6 mmol/L (3.4-5.1); Sodium 140 mmol/L (137-145)
[2021-05-26 07:50] LABS: Add Manual Diff / Slide Review YES
[2021-05-26 07:53] LABS: Neutrophils Absolute Manual 4366 /uL (3000-5900); Nucleated Red Blood Cells 1 #/Diff; Total Cells Counted 100
[2021-05-26 07:54] LABS: Hypochromasia 1+; Macrocytosis 1+; Platelet Estimate Decreased on smear
--- NOTE | 2021-05-26 07:57 | PM.PN.1 ---
Subjective Subjective Date Patient Seen: 05/26/21 Interval history: He is seen in his room here on 05/26/2021 to follow-up his ileus, seizure disorder, chronic encephalopathy. His Dilantin level is still pending. He remains distracted and not able to engage. He appears to be quite hard of hearing. His abdomen continues to be somewhat firm but not tender. His CBC and BMP today are normal. Exam Vital Signs (past 8 hours): - 05/26/21 00:17 05/26/21 04:22 Temperature 97.3 F L 97.4 F L Pulse Rate 83 90 Respiratory Rate 18 18 Blood Pressure 125/67 132/78 Pulse Oximetry 94 94 Oxygen Delivery Method Room Air Oxygen Flow Rate 2 Narrative Exam Narrative: He is sleeping today and appears to be hard of hearing/distracted. Heart is regular rate and rhythm without murmur Lungs are clear to auscultation bilaterally Abdomen is firm, nontender, bowel sounds active, no masses. Extremities have no ankle edema Objective Labs Result Diagrams: 05/26/21 06:09 05/26/21 06:09 Labs: Laboratory Results - last 24 hr 05/25/21 05/26/21 05/26/21 05:55 06:09 06:09 WBC 7.4 RBC 3.94 L Hgb 13.4 L Hct 39.6 L MCV 100.3 H MCH 34.0 MCHC 34.0 RDW 14.3 Plt Count 153 Neut % (Auto) Not Reportable Lymph % (Auto) Not Reportable [place] % (Auto) Not Reportable Eos % (Auto) Not Reportable Baso % (Auto) Not Reportable Lymph # (Auto) Not Reportable [place] # (Auto) Not Reportable Baso # (Auto) Not Reportable Total Counted 100 Seg Neutrophils % 38.0 D Band Neutrophils % 21.0 H Lymphocytes % (Manual) 16.0 L Monocytes % (Manual) 17.0 H Eosinophils % (Manual) 3.0 Metamyelocytes % 4.0 H Myelocytes % 1.0 H Neutrophils # (Manual) 4366 Nucleated RBCs 1 H Platelet Estimate Decreased on smear RBC Morphology See below Hypochromasia 1+ H Macrocytosis 1+ H Sodium 140 Potassium 3.6 Chloride 110 H Carbon Dioxide 29 BUN 18 Creatinine 0.80 Estimated GFR > 60.0 BUN/Creatinine Ratio 22.5 H Glucose 87 Calcium 7.9 L Phenytoin < 3.0 L [facility] Medical History (Updated 05/25/21 @ 15:49 by Roe Elmore MD) 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 Social History household members: spouse Smoking Status: Former smoker alcohol intake: former Assessment & Plan Assessment & Plan narrative: Hemal Abdul was admitted with a small-bowel obstruction and to assist the family in securing appropriate placement and or hospice services. 1. Presumed partial small-bowel obstruction, unknown of acute but present on admission Continue clear liquid diet with normal saline running at 100 mL/hour 2. Advance care planning After read viewing the patient's POLST form, he is to be on comfort measures only.? Discussed this with his extensively and she does not wish to have him undergo any invasive procedures Hospice consult has been requested for this patient however it is not likely that they will see him until Friday. 3. 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 t.i.d. 4. Seizure disorder, chronic Continue home dose of Dilantin 500 mg p.o. b.i.d. Dilantin level ordered and is pending 5. Severe depression, chronic He normally takes venlafaxine but appears that he was reduced from a total daily dose of 600 mg to 450 mg a day so he will get 150 mg p.o. t.i.d. Continue quetiapine 6. History of CVA, chronic Continue home dose of atorvastatin 80 mg p.o. at bedtime VTE Prophylaxis: Wells risk score? Enoxaparin 40 mg subQ once daily? Bilateral SCDs Code status: DNR/DNI as discussed with the patient's ? who is his surrogate and POA. Time Spent With Patient Critical Care time: I spent a total of [] minutes of critical care time on this patient's care today; this time is exclusive of procedural time. Quality VTE Deep Vein Thrombosis/Pulmonary Embolism Present on Admission: No
[2021-05-26 09:00] VITALS: BP 115/75; PULSE 88; RESP 18; TEMP 36.4; O2SAT 90
[2021-05-26] MEDS: CLOPIDOGREL 75 MG TABLET PO (10:38)
[2021-05-26] MEDS: ASPIRIN EC 81 MG TABLET PO (10:39)
[2021-05-26] MEDS: DIVALPROEX DR 250 MG TABLET 500 MG PO ×2 (10:39→20:44)
[2021-05-26] MEDS: VENLAFAXINE ER 75 MG CAP 300 MG PO (10:39)
[2021-05-26] MEDS: QUETIAPINE 100 MG TABLET PO ×2 (12:13→20:44)
[2021-05-26 12:55] VITALS: BP 127/75; PULSE 84; RESP 18; TEMP 36.4; O2SAT 100
--- NOTE | 2021-05-26 14:48 | PC.NURSE ---
Patient seems to be more alert today. He is pleasant and cooperative with all care and denies pain. IVF infusing at patient is visiting with his .
[2021-05-26] MEDS: cefTRIAXone 1,000 MG in SODIUM CHLORIDE 0.9% 100 ML 200 ML IV (15:19)
--- NOTE | 2021-05-26 15:54 | CM.IDA ---
Initial DCP Assessment Note Pt is a 76 yo male, resident of [place], arrives after syncopal event at home; PMH includes former alcohol use disorder and MH hx : MDD. Patient admitted for SBO/ileus H+P narrative: Zachary Abdul is a 76-year-old male with a history of CVA, neurological deficits secondary to a gas asphyxiation poisoning, multiple falls, was brought into the emergency room at the request of his due to 2 days of being altered and falling. PCP: Alex Cartwright Payer: [employer] At time of this note; prog note from Dr Kong indicates Hospice consult. Did not discuss this w/spouse so will need to hand that off to oncoming STITCHING MACHINE SETTER Friday Met w/spouse Shari this morning at bedside, introduced role. Spouse appeared and sounded exhausted, explained she no longer works because she is caring for patient multimedia author. They are also living on a fixed income so spouse unsure about marine oil terminal superintendent care planning. According to spouse, patient requiring a lot of assist d/t declining cognitive status. Provided Senior Resource Guide and application for [employer] [facility] assist. Spouse suggested waiting on arranging HH services until medical POC was clearer. Patient may benefit from PT (?) Will need to update this assessment tomorrow w/spouse Shari as it appears Dr Kong and patient/family may have decided on comfort/hospice at home (?) BREE Donnelly Discharge Planning/Care Management CM Discharge Assessment Start: 05/26/21 15:51 Freq: Status: Active Protocol: Document 05/26/21 15:51 DONTE (Rec: 05/26/21 15:54 DONTE [id number]) Discharge Planning Assessment Assigned Kiss Mixer BREE Agustin DPOA/Assigned Designee Name Shari Abdul, spouse Contact Information [phone] Advance Directives? Yes Advance Directives on File Yes History Provided By Patient,Significant Other Prior Living Arrangements House Household Members spouse Type of transporation used prior to Relies on Others admit Independent with ADL's No Is patient alert and oriented? No Needs Assistance With Grooming,Meal Prep,Managing Medications,Home Chores / Shopping Patient/Family Preference Home with Home Health Barriers to Discharge Yes Comment See Narrative Discharge Plan Home with Home Health Transportation Arrangement Spouse Referrals Initiated Home Health Additional Comment or Hospice (?) Medicare Choice List Provided No SNF/HH Preference None
[2021-05-26 17:46] VITALS: BP 144/74; PULSE 82; RESP 18; TEMP 36.4; O2SAT 97
[2021-05-26 19:20] VITALS: BP 135/68; PULSE 81; RESP 18; TEMP 36.9; O2SAT 94
[2021-05-26] MEDS: ATORVASTATIN 20 MG TABLET 80 MG PO (20:44)
[2021-05-27] VITALS: BP 110/69; PULSE 81; RESP 18; TEMP 36.4; O2SAT 92
[2021-05-27] MEDS: SODIUM CHLORIDE 0.9% 1,000 ML 100 ML IV (00:30)
[2021-05-27 04:00] VITALS: BP 131/65; PULSE 73; RESP 18; TEMP 36.3; O2SAT 92
[2021-05-27 07:57] VITALS: O2SAT 96
[2021-05-27 09:02] VITALS: BP 115/59; PULSE 81; RESP 14; TEMP 36.1; O2SAT 93
[2021-05-27 09:39] LABS: Basophils Absolute Auto 0 /uL (0-100); Basophils Percent Auto 0.5 % (0-2); Eosinophils Absolute Auto 200 /uL (0-450); Eosinophils Percent Auto 1.8 % (2-4); Hematocrit 39.7 % (41-53); Hemoglobin 13.5 g/dL (13.5-17.5); Lymphocytes Absolute Auto 1400 /uL (1100-4500); Mean Corpuscular Hemoglobin 33.9 PG (26-34); Mean Corpuscular Volume 99.6 fL (80-100); Monocytes Absolute Auto 1300 /uL (0-900); Neutrophils Absolute Auto 5800 /uL (1500-7000); Neutrophils Percent Auto 66.7 % (50-75); Red Blood Cell Count 3.99 X10^6/uL (4.5-5.9); Red Cell Distribution Width 14.8 % (11.6-14.8); White Blood Cell Count 8.6 X10^3/uL (4.5-11.0)
[2021-05-27 09:40] LABS: Add Manual Diff / Slide Review SLIDE REVIEW
[2021-05-27] MEDS: PIPERACILLIN/TAZO 3.375 GM in SODIUM CHLORIDE 0.9% 100 ML 25 ML IV (10:25)
[2021-05-27] MEDS: CLOPIDOGREL 75 MG TABLET PO (10:26)
[2021-05-27] MEDS: DIVALPROEX DR 250 MG TABLET 500 MG PO (10:26)
[2021-05-27] MEDS: ASPIRIN EC 81 MG TABLET PO (10:26)
[2021-05-27] MEDS: VENLAFAXINE ER 75 MG CAP 300 MG PO (10:27)
[2021-05-27 11:14] LABS: Macrocytosis 1+
[2021-05-27 11:16] LABS: Platelet Estimate Adeq
--- NOTE | 2021-05-27 12:44 | PT.IIE ---
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 History of alcohol abuse History of tobacco abuse Wernicke encephalopathy syndrome Physical Therapy Inpatient Evaluation/Re-Eval M1 PT/OT-IP Prior Functional Status Start: 05/27/21 12:25 Freq: NEEDED Status: Active Protocol: Document 05/27/21 12:25 [facility] (Rec: 05/27/21 12:44 [facility] [id number]) Medical Review Prior Functional Status Medical History Reviewed Yes Diet/Fluid Consistency Regular Communication with nursing prior to treatment and communication with pts who encouraged Hemal to do PT Mobility and Gait per pts he was using a SPC at home until last friday when he was too weak to ambulate with a cane and needed his FWW Social History Household Members spouse Living Arrangements House Home Equipment Front Wheel Walker,Straight Cane Employment Status Retired M2 PT-IP Current Condition Start: 05/27/21 12:25 Freq: NEEDED Status: Active Protocol: Document 05/27/21 12:25 [facility] (Rec: 05/27/21 12:44 [facility] [id number]) Physical Therapy Current Condition Current Condition Evaluation Date 05/27/21 Treatment Diagnosis SBO and syncope, pneumonia Onset Date 05/24/21 M3 PT-IP Subjective Start: 05/27/21 12:25 Freq: NEEDED Status: Active Protocol: Document 05/27/21 12:25 [facility] (Rec: 05/27/21 12:44 [facility] [id number]) Subjective Physical Therapy Visit Type Type Initial Evaluation Visit Start Time 11:50 Visit Stop Time 12:20 Total Visit Minutes 30 Physical Therapy Visit Comments Patient Comments pt agrees to PT Patient Goals Pt's goals include returning home with his Therapy Pain Assessment Pain When Pain Assessed At Rest Pain Present Pain Present Pain Reported Location low back Intensity 5 Scale Used Numeric (0 - 10) M4 PT-IP Mobility and Gait Start: 05/27/21 12:25 Freq: NEEDED Status: Active Protocol: Document 05/27/21 12:25 [facility] (Rec: 05/27/21 12:44 [facility] [id number]) PT-Bed Mobility Assessment Rolling Type of Rolling Roll to Right Level of Assist Moderate Assistance Supine to Sit Supine to Sit Moderate Assistance Scooting Scooting to Edge of Bed Moderate Assistance PT-Transfer Assessment Sit to and From Stand Sit to and from Stand Moderate Assistance Equipment Transfer Assistive Device Gait Belt,Front Wheeled Walker Orthotic/Prosthetic Devices or Brace: No Transfers Transfer Destination Bed Transfer Technique Stand Step Pivot Transfer Ability Level of Assist Minimal Assistance Gait Assessment Gait Gait Assistance Required: Contact Guard Assist Distance (Feet) 15 Able to Maintain Weight Bearing Status Yes During Gait Assistive Devices Assistive Device Gait Belt,Front Wheeled Walker Orthotic/Prosthetic Devices or Brace: No Gait Deviations General Gait Pattern Decreased Stride Length,Flexed Trunk Factors Limiting Gait Function Factors Limiting Gait Function Decreased Activity Tolerance, Decreased Strength,Poor Balance Comments Gait Comments pt on 2.5 liters O2, he was dizzu upon sitting so I had him sit at the edge of the bed x 4 min. 02 sats 94. He was then ready to stand and with standing was also a bit dizzy so pt stayed by the edge of the bed for a few minutes. It was then determined that he was no longer dizzy. He ambulated with the fww x 15 feet to the bedside chair with CGA. He was able to balance without his hands when he attempted to pull up his brief . He transfered to the bedside chair with min A. Pt did do a few leg lifts once sitting. He was positioned comfortably and his lunch was then brought into him. His was present for treatment PT-Balance Assessment Sitting Balance and Reactions Static Sitting Balance Ability Good Dynamic Sitting Balance Ability Good Standing Balance and Reactions Static Standing Balance Ability Fair M5 PT-IP Objective Assessments Start: 05/27/21 12:25 Freq: NEEDED Status: Active Protocol: Document 05/27/21 12:25 [facility] (Rec: 05/27/21 12:44 [facility] [id number]) Orientation Orientation/Cognition Level of Alertness Alert Orientation Name,Age,Birthday,Month,Date, Year,Day of Week,Place, Situation Gross Range of Motion Upper Extremity ROM Assessment Within Functional Limits Lower Extremity ROM Assessment Within Functional Limits Strength Upper Extremity Strength Assessment Within Functional Limits Lower Extremity Strength Assessment Within Functional Limits M6 PT-IP Treatment Start: 05/27/21 12:25 Freq: NEEDED Status: Active Protocol: Document 05/27/21 12:25 [facility] (Rec: 05/27/21 12:44 [facility] [id number]) Physical Therapy Treatment Exercises Exercises Ankle Pumps,Heel Slides M7 PT-IP Assessment and Plan Start: 05/27/21 12:25 Freq: NEEDED Status: Active Protocol: Document 05/27/21 12:25 [facility] (Rec: 05/27/21 12:44 [facility] [id number]) PT Summary Assessment and Plan Potential Rehabilitation Potential Good Status of Condition at Evaluation Evolving Summary Impairments Pain,Strength,Balance,Gait, Activity Tolerance Assessment Summary Hemal is a 76 year old resident of [place] who was brought to the hospital after a syncopal event at home. Pt admitted for SBO/ileus. He is on 2.5 liters O2. Pt's was present in the room for PT . He notes his low back is sore but he did agree to PT consult for mobility. Upon mod A transfer to sitting at the edge of the bed he was dizzy so I had him sit at the edge of the bed x 4 min. 02 sats 94. He was then ready to stand and with standing was also a bit dizzy so pt stayed by the edge of the bed for a few minutes. It was then determined that he was no longer dizzy. He ambulated with the fww x 15 feet to the bedside chair with CGA. He has slow shuffling steps and needs cues to straighten up He was able to balance without his hands when he attempted to pull up his brief. He transferred to the bedside chair with min A. Pt did do a few leg lifts once sitting. He was positioned comfortably and his lunch was then brought into him. His was present for treatment. Pt appears overall deconditioned but able to participate with PT. His prior level of mobility was with a SPC at home until last Friday when he became weak. According to his Shari pt is requiring a lot of assist at home with declining cognitive status. At this time HH services for home seems to be what the family would like. Goals Bed Mobility Goal Independent Transfer Goal Standby Assistance Gait Goal Standby Assistance Gait Distance 150 feet Days to Meet Goals 8 Frequency of Treatment Frequency Of Treatment Twice a Day Treatment Plan Physical Therapy Treatment Plan Bed Mobility Training,Transfer Training,Gait Training, Therapeutic Exercise Weight Bearing Status Weight Bearing Status Full Weight Bearing Recommendations To Nursing Amount of Assist Needed 1 Person Assist Discharge Recommendations PT Discharge Recommendations Home with Assistance Transportation Needs at Discharge Private Vehicle
[2021-05-27] MEDS: QUETIAPINE 100 MG TABLET PO (12:53)
--- NOTE | 2021-05-27 13:36 | CM.DPC ---
Addendum entered by BREE [place] 05/27/21 13:48: ADD: Provided copy of Medicare Message for pt/spouse and answered spouse questions regarding Inpt/OBS status and spouse appreciative. BF Addendum entered by BREE [place] 05/27/21 13:42: ADD: SW faxed Marisela, orders and PT note to [facility] but d/c summary not yet available. BF Original Note: DCP Discharge home with HH Per MD, pt medically stable to d/c home today and agreeable with recommendation of HH and signed F2F. Per PT initial eval this morning, pt has improved and recommend safe d/c home with spouse assist and HH for deconditioning. SW met bedside with pt and spouse and both are agreeable with d/c to home today and HH and no preference. SW called [facility] based on Vendor Calendar and confirmed they have openings for new referrals in [facility] within 48 hours and can accept. SW faxed referral and will fax d/c summary, F2Jean Paul, orders and PT eval when d/c summary available today. SW provided [facility] brochure to spouse and updated RN and spouse to transport pt home today. Plan: Patient to d/c home via spouse POV today and new [facility] referral made and can open on within 48 hours and pt to continue with outpt f/u with Psychiatrist Dr. Martinez for ongoing med management. BREE [place]
--- NOTE | 2021-05-27 17:11 | P.DS_ITS ---
History of Present Illness History of Present Illness Chief complaint: Syncope Narrative: Zachary Abdul is a 76-year-old male with a history of CVA, neurological deficits secondary to a gas asphyxiation poisoning, multiple falls, was brought into the emergency room at the request of his due to 2 days of being altered and falling.? She stated that he had shallowed in labored breathing that he was shuffling and now is unable to walk at all, he slept all day and complained of stomach pain last night and had an incontinent diarrheal episode yesterday making huge mass in the bathroom.? She states the patient has not been eating because with complaints of stomach pain and tried to give him 1 bottle of Ensure.? His states that the patient is actually been incontinent for about a month. Patient is regularly seen by Psychiatry for profound depression likely associated to his medical issues and with a past history of alcohol abuse and a current diagnosis of Wernicke's encephalopathy. Patient is a DNR with comfort measures only, this has been discussed with his as to whether not to do any further workup regarding this.? In the emergency room they did consult with general surgery who said that he might have a small-bowel obstruction and that they would see him.? CT of the abdomen and pelvis indicated findings of bowel wall thickening: ?Segmental wall thickening of multiple small bowel loops in the right abdomen with a gradual transition point in the right hemipelvis with multiple short segments of mild bowel wall thickening.? The findings likely represent a partial obstruction secondary to inflammatory small bowel strictures.?2. Multifocal segments of wall thickening as well as prominent wall thickening and enhancement in the terminal ileum are suggestive of Crohn's disease.?? Possibly suggesting a partial small-bowel obstruction.? His CBC is unremarkable but he does have a neutrophilic bandemia, mildly elevated glucose at 1:22 a.m., AST 63, ALT 57 ammonia was normal troponin was normal lipase is 14 and mildly elevated procalcitonin of 0.72, UDS were positive for tricyclic antidepressants and benzodiazepines which may be present in his home medications, COVID-19 PCR is negative. Discharge Providers Provider Date of admission: 05/26/21 15:50 Discharge Date: 05/27/21 Primary care physician: Alex Cartwright MD Consults: 05/25/21 09:33 Consult to General Surgery Stat Comment: Consulting Provider: Roe Elmore Reason for consultation: Small-bowel obstruction Has provider been notified: Yes 05/25/21 10:49 Consult to Physician Routine Comment: Consulting Provider: Bo Martinez Reason for consultation: not speaking, abdominal pain, unknown if med reaction 05/25/21 12:19 Consult to Hospice Referral Routine Comment: 05/26/21 19:19 Consult to Occupational Therapy Evaluate & Treat Comment: Physician Instructions: Evaluate and treat Consult to Physical Therapy Evaluate & Treat Comment: Physician Instructions: Evaluate and Treat 05/27/21 13:34 Consult to Home Health Routine Comment: partial SBO, pneumonia Reason For Exam: Set up HH RN/PT/RADIOLOGICAL TECHNICIAN for discharge to home Discharge provider: Joseph Hi MD Summary Hospital Course Discharge Diagnosis: 1. Pneumonia 2. Acute metabolic encephalopathy 3. Small bowel obstruction, ruled out 4. Chronic seizure disorder 5. Severe depression 6. History of CVA Hospital Course: Mr. Abdul came in with chronic abdominal discomfort and confusion. He also had a cough and some difficulty breathing. Initially, CT scan was done that showed possible partial SBO. However he did not have symptoms or signs consistent with SBO. Surgery was consulted and ruled out SBO, and it was not within patient's goals of care to have surgery regardless. He is DNR/DNI with comfort care. He was noted to have a pneumonia on imaging, with elevated procalcitonin and a bandemia. He was started on antibiotics and improved. His encephalopathy improved. He was feeling weak on discharge, so he was referred to home health. He was given a prescription for azithromycin and amoxicillin for his pneumonia. Exam Vital Signs (past 8 hours): Oxygen Delivery Method Nasal Cannula Oxygen Flow Rate 0 Narrative Exam Narrative: GEN: awake and alert, no acute distress? PULM: clear bilaterally Objective Labs Result Diagrams: 05/27/21 09:00 05/26/21 06:09 Labs: Laboratory Results - last 24 hr 05/27/21 09:00 WBC 8.6 RBC 3.99 L Hgb 13.5 Hct 39.7 L MCV 99.6 MCH 33.9 MCHC 34.0 RDW 14.8 Plt Count TNP Neut % (Auto) 66.7 Lymph % (Auto) 16.0 L [place] % (Auto) 15.0 H Eos % (Auto) 1.8 L Baso % (Auto) 0.5 Neut # (Auto) 5800 Lymph # (Auto) 1400 [place] # (Auto) 1300 H Eos # (Auto) 200 Baso # (Auto) 0 Platelet Estimate Adeq RBC Morphology See below Macrocytosis 1+ H PFSH Medical History (Updated 05/25/21 @ 15:49 by Roe Elmore MD) 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 Social History household members: spouse Smoking Status: Former smoker alcohol intake: former Discharge Plan Discharge Plan Patient Disposition: Home Health Service Provider Discharge Comment: Ms. Abdul was admitted with confusion. He was found to have a pneumonia. He improved with antibiotics. He is discharged with a prescription for two antibiotics to continue to treat his infection. Discharge orders & Medications Prescriptions: New amoxicillin 500 mg capsule 500 mg PO Q8H Qty: 15 0RF azithromycin 500 mg tablet 500 mg PO DAILY 5 Days Qty: 5 0RF Continued ascorbic acid (vitamin C) 500 mg capsule 500 mg PO DAILY 0RF cholecalciferol (vitamin D3) 1,000 unit capsule 1,000 unit PO DAILY 0RF vitamin E (dl, acetate) 1,000 unit capsule 1,000 unit PO DAILY 0RF divalproex 500 mg tablet,delayed release (DR/EC) 500 mg PO BID Qty: 180 1RF Rx Instructions: New pills size 11/07/20 atorvastatin 80 mg tablet 80 mg PO BEDTIME 0RF quetiapine 100 mg tablet 100 mg PO TID Qty: 90 1RF Rx Instructions: Take one tablet at noon and 1 tablet at bedtime lorazepam 0.5 mg tablet 0.5 mg PO TID PRN (Reason: anxiety) Qty: 90 2RF MULTIVITAMIN (#UNI-STRESS) 1 cap PO QDAY Qty: 0 0RF melatonin 3 MG tablet 3 mg PO HS PRN (Reason: Sleep) Qty: 0 0RF venlafaxine 75 mg capsule,extended release 24hr 175 mg PO QAM 0RF Rx Instructions: 05/17/21 dose decrease clopidogrel 75 mg Tablet 75 mg PO DAILY Qty: 21 0RF aspirin 81 mg tablet,delayed release (DR/EC) 81 mg PO DAILY Qty: 30 0RF Follow up/Referrals: Alex Cartwright MD [Primary Care Provider] - Diet/Activity/Treatments Diet: Regular Visit Report/Discharge Packet Instructions: Pneumonia-Adult Discharge Data Primary Care Provider: Alex Cartwright V Quality VTE Deep Vein Thrombosis/Pulmonary Embolism Present on Admission: No
== END 2021-05-27 14:43 | disposition home or self-care (01) | DRG 193 ==
LOC: ED 09:32 → AC 10:39
PROVIDERS: Emergency Medicine; Internal Medicine; Admitting Provider Nurse Practitioner Family; Emergency Provider Emergency Medicine; PCP Internal Medicine; Referring Provider Emergency Medicine; Visit Provider Nurse Practitioner Family
DX: J18.9 Pneumonia, unspecified organism (principal); G93.41 Metabolic encephalopathy; F33.3 Major depressive disorder, recurrent, severe with psychotic symptoms; F03.90 Unspecified dementia, unspecified severity, without behavioral disturbance, psychotic disturbance, mood disturbance, and anxiety; G40.909 Epilepsy, unspecified, not intractable, without status epilepticus; R29.6 Repeated falls; Z86.73 Personal history of transient ischemic attack (TIA), and cerebral infarction without residual deficits; Z51.5 Encounter for palliative care; Z66 Do not resuscitate; Z87.891 Personal history of nicotine dependence; Z20.822 Contact with and (suspected) exposure to COVID-19
CPT/HCPCS: 36415; 70450; 71045; 74177; 80048; 80053; 80185; 80305; 80320; 80329; 81003; 81015; 82140; 82550; 83605; 83690; 84145; 84443; 84484; 85007; 85025; 87040; 87635; 93005; 93010; 94762; 96361; 96365; 96366; 97161; 97530; 99223; 99232; 99285; C9803; G0378; G0480; J0696; J1956; J2543

== ENCOUNTER 2021-08-06 08:49 | Inpatient (IN) | payer MEDICARE, SELFPAY ==
[2021-05-25 11:41] VITALS: BMI 22.0
[2021-08-06] VITALS (17 sets, daily range): BP systolic 122–157; BP diastolic 66–99; PULSE 67–114; RESP 19–27; TEMP 35.9–36.7; O2SAT 89–97; BMI 22.8
--- NOTE | 2021-08-06 09:02 | ED.NAVMDI ---
HPI - Nausea/Vomiting/Diarrhea General Chief complaint: Weakness Stated complaint: Diarrhea/weakness Time Seen by Provider: 08/06/21 08:50 Source: patient, EMS and old records reviewed Mode of arrival: EMS Limitations: altered mental status (known neurologic deficits.) History of Present Illness HPI Narrative: This is a 76-year-old male who presents from home with history of stroke, neurologic deficits secondary to gas asphyxiation, and fall. Patient is reported by EMS to have had diarrhea for the past 4 days. This morning he went to get out of bed rolled over and fell out of the bed. He denies pain and at this point. Unsure if he has hit his head. Or any loss of consciousness. Reported that patient does take Plavix and antihypertensive. Patient is unable to give this history. He denies chest pain or shortness of breath. He denies any active abdominal pain. He denies nausea or vomiting. He denies fevers or chills. Patient states there was some black and some blood in his stool but when asked which happened 1st he seems a little confused. He denies any urinary symptoms. Patient denies any surgeries but does have incisions consistent with ex lap at some point. According to patient's prior history he has had prior bowel obstructions chronic seizure disorder and history of stroke. Related Data Home Medications Medication Instructions Recorded Confirmed MULTIVITAMIN (#UNI-STRESS) 1 cap PO QDAY #0 11/14/11 08/06/21 melatonin 3 mg tablet 3 mg PO HS PRN #0 07/15/17 08/06/21 ascorbic acid (vitamin C) 500 mg 500 mg PO DAILY cap 11/03/17 08/06/21 capsule cholecalciferol (vitamin D3) 25 1,000 unit PO DAILY 11/03/17 08/06/21 mcg (1,000 unit) capsule vitamin E (dl, acetate) 450 mg 1,000 unit PO DAILY 12/15/19 08/06/21 (1,000 unit) capsule Previous Rx's Medication Instructions Recorded aspirin 81 mg tablet,delayed 81 mg PO DAILY #30 tab 08/01/20 release clopidogrel 75 mg tablet 75 mg PO DAILY #21 tab 08/01/20 quetiapine 100 mg tablet 100 mg PO BID #180 tab 06/08/21 venlafaxine 150 mg 300 mg PO QAM #180 cap 06/08/21 capsule,extended release 24 hr divalproex 500 mg tablet,delayed 500 mg PO BID #180 tab 07/13/21 release sertraline 100 mg tablet 100 mg PO DAILY #60 tab 07/17/21 sertraline 50 mg tablet 50 mg PO DAILY #46 tab 07/17/21 venlafaxine 37.5 mg 37.5 mg PO QAM #7 cap 07/17/21 capsule,extended release 24 hr venlafaxine 75 mg capsule,extended 75 mg PO QAM #42 cap 07/17/21 release 24 hr atorvastatin 80 mg tablet 80 mg PO BEDTIME #90 tab 07/27/21 Allergies Allergy/AdvReac Type Severity Reaction Status Date / Time No Known Drug Allergies Allergy Verified 07/13/21 12:52 Review of Systems Review of Systems ROS Unobtainable: All systems reviewed & are unremarkable except as noted in HPI and below Patient History Medical History 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 Social History household members: spouse Smoking Status: Former smoker alcohol intake: former Smoking Status: Former smoker alcohol intake frequency: 0-2 drinks per day Substance Use Type: does not use Exam Narrative Exam Narrative: GEN: Elderly male, alert and oriented self and location, patient appears to be in mild distress. Patient does feel cool to the touch. HEENT: Atraumatic, pupils are equal round reactive to light, extraocular movements are intact, nares are clear, TMs are clear with no fluid, positive forconjunctival pallor. Throat is clear without any exudates, erythema, tonsillar enlargement or uvular deviation, no facial droop. Clear speech. HEART: Regular rate and rhythm without murmur, clicks, rubs. No carotid bruits, pulses are equal in upper and lower extremities LUNGS:Lungs clear to auscultation, no wheezes, rales, crackles, chest moves symmetrically ABD:bowel sounds normal, soft, non-tender, no guarding, rebound, rigidity, no masses noted, no hepatosplenomegaly, on digital rectal exam patient has large external hemorrhoid, no bright red blood or melena he has brownish stool with a negative stool occult. :No CVA tenderness BACK: No cervical, thoracic or lumbar vertebral point tenderness. MSCL: Non-tender, no muscle atrophy, muscles strength 5/5 upper and lower extremities, full range of motion NEURO:CN 2-12 intact, sensation normal Initial Vital Signs Initial Vital Signs: Vital Signs Pulse Rate 67 08/06/21 08:53 Respiratory Rate 22 08/06/21 08:53 Pulse Oximetry 89 L 08/06/21 08:53 Course Orders Ordered: ED Orders 08/06/21 09:55 Blood Culture Stat 08/06/21 10:43 Covid-19 + FLU A/B + RSV - PCR Stat 08/06/21 12:15 UA Complete [Urinalysis and Microscopic] Stat 08/06/21 12:32 C Diff [Clostridium Difficile Tox PCR] Stat Acetaminophen (Acetaminophen 325 Mg Tablet) 650 mg PO Q6HR PRN PRN Reason: pain Aspirin (Aspirin Ec 81 Mg Tablet) 81 mg PO DAILY [facility] Atorvastatin Calcium (Atorvastatin 20 Mg Tablet) 80 mg PO BEDTIME [facility] Divalproex Sodium (Divalproex Dr 250 Mg Tablet) 500 mg PO BID [facility] Enoxaparin Sodium (Enoxaparin 40 Mg/0.4 Ml Syringe) 40 mg SUBCUT DAILY [facility] Metronidazole (Flagyl) 500 mg in 100 mls @ 100 mls/hr IV Q8H [facility] Last Admin: 08/06/21 14:55 Dose: 100 mls/hr Documented by: KEN Lactated Ringer's (Lactated Ringers) 1,000 mls @ 150 mls/hr IV CONT [facility] Melatonin (Melatonin 3 Mg Tablet) 3 mg PO BEDTIME PRN PRN Reason: Sleep Ondansetron HCl (Ondansetron 4 Mg/2 Ml Inj) 4 mg IV Q8HR PRN PRN Reason: Nausea And Vomiting Quetiapine Fumarate (Quetiapine 100 Mg Tablet) 100 mg PO BID [facility] Last Admin: 08/06/21 14:05 Dose: 100 mg Documented by: KEN Vancomycin HCl (Vancomycin 125 Mg Capsule) 500 mg PO Q6H [facility] Last Admin: 08/06/21 13:09 Dose: 500 mg Documented by: RADHAAZHALEY Venlafaxine HCl (Venlafaxine Er 75 Mg Cap) 300 mg PO DAILY [facility] Discontinued Medications Clopidogrel Bisulfate (Clopidogrel 75 Mg Tablet) 75 mg PO DAILY [facility] Hydromorphone HCl (Hydromorphone 0.5 Mg Inj) 0.5 mg IV NOW ONE Stop: 08/06/21 11:33 Last Admin: 08/06/21 11:35 Dose: Not Given Documented by: MARYLOU Sodium Chloride (Normal Saline 0.9%) 1,000 mls @ 1,000 mls/hr IV BOLUS ONE Stop: 08/06/21 10:06 Last Infusion: 08/06/21 12:02 Dose: 0 mls/hr Documented by: [email or web address] Admin: 08/06/21 10:09 Dose: 1,000 mls/hr Documented by: DARUIS Lactated Ringer's (Lactated Ringers) 2,041.17 mls @ 680.39 mls/hr 30 ml/kg infuse over 3 hr (2041.17 ml) IV NOW ONE Stop: 08/06/21 12:59 Last Infusion: 08/06/21 12:15 Dose: 680 mls/hr Documented by: MELLISAHOHOLLY Admin: 08/06/21 10:09 Dose: 680.39 mls/hr Documented by: DARIUS Piperacillin Sod/Tazobactam (Sod 4.5 gm/ Sodium Chloride) 100 mls @ 200 mls/hr IV NOW ONE Stop: 08/06/21 10:01 Last Infusion: 08/06/21 11:02 Dose: 0 mls/hr Documented by: MELLISAHOHOLLY Admin: 08/06/21 10:18 Dose: 200 mls/hr Documented by: MELLISAHOHOLLY Sodium Chloride (Normal Saline 0.9%) 1,000 mls @ 150 mls/hr IV CONT [facility] Last Admin: 08/06/21 14:55 Dose: 100 mls/hr Documented by: LVAZQUE Sodium Chloride (Normal Saline 0.9%) 1,000 mls @ 1,000 mls/hr IV BOLUS ONE Stop: 08/06/21 13:47 Last Admin: 08/06/21 13:09 Dose: 1,000 mls/hr Documented by: LVAZQUE Piperacillin Sod/Tazobactam (Sod 3.375 gm/ Sodium Chloride) 100 mls @ 25 mls/hr IV Q8H [facility] Last Admin: 08/06/21 14:03 Dose: Not Given Documented by: LVAZQUE Lactated Ringer's (Lactated Ringers) 1,000 mls @ 1,000 mls/hr IV BOLUS ONE Stop: 08/06/21 17:51 Last Admin: 08/06/21 16:56 Dose: 1,000 mls/hr Documented by: LVAZQUE Vancomycin HCl (Vancomycin 125 Mg Capsule) 125 mg PO Q6H [facility] Consultations Consultation #1: Dr. Hi, hospitalist accepts for admission. Vital Signs Vital signs: Vital Signs - 8 hr 08/06/21 10:15 Pulse Rate 110 H Respiratory Rate 19 Blood Pressure 144/89 H Pulse Oximetry 94 MDM - Nausea/Vomiting/Diarrhea Lab Data Result diagrams: 08/06/21 09:05 08/06/21 09:05 Labs: Lab Results 08/06/21 08/06/21 08/06/21 Range/Units 09:05 09:05 09:05 WBC 47.5 H* (4.5-11.0) X10^3/uL RBC 5.56 (4.5-5.9) X10^6/uL Hgb 18.8 H (13.5-17.5) g/dL Hct 55.4 H (41-53) % MCV 99.7 (80-100) fL MCH 33.9 (26-34) PG MCHC 34.0 (30-36) % RDW 16.1 H (11.6-14.8) % Plt Count 278 (150-400) X10^3/uL Neut % (Auto) Not Reportable Lymph % (Auto) Not Reportable Anderson % (Auto) Not Reportable Eos % (Auto) Not Reportable Baso % (Auto) Not Reportable Lymph # (Auto) Not Reportable Anderson # (Auto) Not Reportable Baso # (Auto) Not Reportable Total Counted 100 Seg Neutrophils % 35.0 L (38-70) % Band Neutrophils % 47.0 H (3-7) % Lymphocytes % (Manual) 8.0 L (25-45) % Monocytes % (Manual) 2.0 (2-11) % Metamyelocytes % 4.0 H (-0) % Myelocytes % 4.0 H (-0) % Neutrophils # (Manual) 71605 H (9931-6059) /uL Toxic Granulation Present H RBC Morphology See below Anisocytosis 1+ H PT 15.2 H (10.1-12.7) SECONDS INR 1.3 (0.9-1.3) APTT 29 D (26.4-36.2) SECONDS Sodium 131 L (137-145) mmol/L Potassium 4.0 (3.4-5.1) mmol/L Chloride 97 L (98-107) mmol/L Carbon Dioxide 21 L (22-32) mmol/L BUN 29 H (9-20) mg/dL Creatinine 1.15 (0.66-1.25) mg/dL Estimated GFR > 60.0 (>60) mL/min BUN/Creatinine Ratio 25.2 H (6-22) Glucose 179 H (80-110) mg/dL Lactate (0.7-2.1) mmol/L Calcium 8.9 (8.4-10.2) mg/dL Total Bilirubin 0.4 (0.2-1.3) mg/dL AST 73 H (17-59) IU/L ALT 26 (<50) IU/L Alkaline Phosphatase 108 (38-126) U/L Total Protein 6.4 (6.3-8.2) g/dL Albumin 3.2 L (3.5-5.0) g/dL Globulin 3.2 (1.7-4.1) g/dL Albumin/Globulin Ratio 1.0 (1.0-2.8) Ethyl Alcohol < 10 ( - 10) mg/dL Blood Type Antibody Screen 08/06/21 08/06/21 Range/Units 09:05 09:05 WBC (4.5-11.0) X10^3/uL RBC (4.5-5.9) X10^6/uL Hgb (13.5-17.5) g/dL Hct (41-53) % MCV (80-100) fL MCH (26-34) PG MCHC (30-36) % RDW (11.6-14.8) % Plt Count (150-400) X10^3/uL Neut % (Auto) Lymph % (Auto) Anderson % (Auto) Eos % (Auto) Baso % (Auto) Lymph # (Auto) Anderson # (Auto) Baso # (Auto) Total Counted Seg Neutrophils % (38-70) % Band Neutrophils % (3-7) % Lymphocytes % (Manual) (25-45) % Monocytes % (Manual) (2-11) % Metamyelocytes % (-0) % Myelocytes % (-0) % Neutrophils # (Manual) (2442-1513) /uL Toxic Granulation RBC Morphology Anisocytosis PT (10.1-12.7) SECONDS INR (0.9-1.3) APTT (26.4-36.2) SECONDS Sodium (137-145) mmol/L Potassium (3.4-5.1) mmol/L Chloride (98-107) mmol/L Carbon Dioxide (22-32) mmol/L BUN (9-20) mg/dL Creatinine (0.66-1.25) mg/dL Estimated GFR (>60) mL/min BUN/Creatinine Ratio (6-22) Glucose (80-110) mg/dL Lactate 5.3 H* (0.7-2.1) mmol/L Calcium (8.4-10.2) mg/dL Total Bilirubin (0.2-1.3) mg/dL AST (17-59) IU/L ALT (<50) IU/L Alkaline Phosphatase (38-126) U/L Total Protein (6.3-8.2) g/dL Albumin (3.5-5.0) g/dL Globulin (1.7-4.1) g/dL Albumin/Globulin Ratio (1.0-2.8) Ethyl Alcohol ( - 10) mg/dL Blood Type O Positive Antibody Screen Negative Point of Care Testing Stool Occult Blood Negative Imaging Data CT scan - head: Radiologist's Impression: Close Head CT (Signed) Santino Quintana - 08/06/21 Chest X-Ray (Signed) Santino Quintana - 08/06/21 Abdomen/Pelvis CT (Signed) Santino Quintana - 08/06/21 Telemetry Strips 05/26/21 Telemetry Strips 05/26/21 Abdomen/Pelvis CT (Signed) Rogelio Velasquez - 05/25/[address] (Signed) Calos Ryan - 05/25/21 Chest X-Ray (Signed) Tyler Scott - 05/25/21 Outside EKG 04/05/21 Echocardiogram Ultrasound (Signed) Camden Chavez - 07/31/20 Brain MRI (Signed) FarrellRonald - 07/31/20 Telemetry Strips 07/31/20 Head/Neck CTA (Signed) MichaelJaki - 07/31/[address] (Signed) Jaki Rodriguez - 07/31/[address] (Signed) Mel Melara - 01/30/18 Chest X-Ray (Signed) Christina Contreras - 01/30/18 Chest/Abdomen/Pelvis CT (Signed) Akshat Mercado - 12/24/17 Outside EKG 09/23/17 Radiology - Historical 04/08/17 Launch?[place] [address] CT Scan Report Signed Patient: Zachary Abdul MR#: [id number] : 1945 Acct:[id number] Age/Sex: 76 / M Date of Service: 08/06/21 Loc: ED Accession Number: [id number] ?? Procedure: CT head/brain wo con Ordering Provider: Maliha Candelaria D.O. PROCEDURE:? CT HEAD/BRAIN WO CON ? INDICATIONS:? diarrhea x 4 days.? fall from bed. ? TECHNIQUE:? Noncontrast 4.5 mm thick angled axial sections acquired from the foramen magnum to the vertex, with coronal and sagittal reformats.? For radiation dose reduction, the following was used:? automated exposure control, adjustment of mA and/or kV according to patient size.? ? COMPARISON:? [facility], CT, CT ANGIO HEAD AND NECK, 07/31/2020, 19:39.? [facility], CT, CT STROKE, 07/31/2020, 19:33.? [facility], MR, MR STROKE, 08/01/2020, 14:45.? [facility], CT, CT ABDOMEN PELVIS W CON, 08/06/2021, 9:17.? [facility], CR, XR CHEST 1V, 08/06/2021, 9:02.? [facility], CT, CT HEAD/BRAIN WO CON, 05/25/2021, 5:44. ? FINDINGS:? Image quality:? Excellent.? ? CSF spaces:? Basal cisterns are patent.? No extra-axial fluid collections.? The ventricles are symmetric in size and shape.? ? Brain:? No intracranial bleeds or masses.? There is cerebral volume loss for age, with resultant ventricular and sulcal prominence.? There are periventricular and deep white matter chronic small vessel ischemic changes.? There is intracranial internal carotid artery atherosclerosis.? ? Skull and face:? Calvarium and visualized facial bones appear intact, without suspicious lesions.? ? Sinuses:? Visualized sinuses and mastoids are clear.? ? IMPRESSION:? Unremarkable intracranial study for age, without findings of acute hemorrhage or other acute intracranial abnormality. ? Macrosomia ? ? Dictated by: Santino Quintana M.D. on 08/06/2021 at 8:35 ? ? Approved by: Santino Quintana M.D. on 08/06/2021 at 8:37?? Chest x-ray: Radiologist's Impression: Launch?[place] [address] XRay Report Signed Patient: Zachary Abdul MR#: [id number] : 1945 Acct:[id number] Age/Sex: 76 / M Date of Service: 08/06/21 Loc: ED Accession Number: [id number] ?? Procedure: XR chest 1V Ordering Provider: Maliha Candelaria D.O. PROCEDURE:? XR CHEST 1V ? INDICATIONS:? diarrhea x 4 days.? fall from bed. ? TECHNIQUE:? One view of the chest was acquired.? ? COMPARISON:? [facility], CR, XR CHEST 1 VIEW, 03/02/2018, 21:06.? [facility], CR, XR CHEST 1V, 01/30/2018, 5:48.? [facility], CT, CT HEAD/BRAIN WO CON, 08/06/2021, 9:17.? [facility], CT, CT ABDOMEN PELVIS W CON, 08/06/2021, 9:17.? [facility], CR, XR CHEST 1V, 05/25/2021, 5:51. ? FINDINGS:? ? Surgical changes and devices:? None.? ? Lungs and pleura:? On this semiupright portable chest examination, no large pneumothorax or large pleural effusions are seen.? Mild, streaky opacities are seen at the lung bases. ?Low lung volumes are noted. This causes a crowded appearance to the lung markings and limits evaluation.? ? Mediastinum:? Mediastinal contours appear normal.? Heart size is normal.? ? Bones and chest wall:? No suspicious bony lesions.? Age-appropriate bony degenerative changes are seen.? ? Overlying soft tissues appear unremarkable.? ? ? IMPRESSION:? Low lung volumes, with likely atelectasis at the lung bases. ? ? Dictated by: Santino Quintana M.D. on 08/06/2021 at 8:33 ? ? Approved by: Santino Quintana M.D. on 08/06/2021 at 8:34 CT scan - abdomen/pelvis: Radiologist's Impression: Launch?[place] [address] CT Scan Report Signed Patient: Zachary Abdul MR#: [id number] : 1945 Acct:[id number] Age/Sex: 76 / M Date of Service: 08/06/21 Loc: ED Accession Number: [id number] ?? Procedure: CT abdomen pelvis w con Ordering Provider: Maliha Candelaria D.O. PROCEDURE:? CT ABDOMEN PELVIS W CON ? INDICATIONS:? diarrhea x 4 days.? fall from bed. ? TECHNIQUE:? After the administration of IV contrast, axial sections were acquired from the lung bases to the pubic symphysis.? Coronal and sagittal reformats were performed.? For radiation dose reduction, the following was used:? automated exposure control, adjustment of mA and/or kV according to patient size. ? COMPARISON:? [facility], CT, CT CHEST ABD PEL W CON, 12/24/2017, 10:50.? [facility], CT, ABDOMEN/PELVIS WITH CONTRAST, 11/21/2011, 13:02.? [facility], CT, CT HEAD/BRAIN WO CON, 08/06/2021, 9:17.? [facility], CR, XR CHEST 1V, 08/06/2021, 9:02.? [facility], CT, CT ABDOMEN PELVIS W CON, 05/25/2021, 7:21. ? FINDINGS:? Image quality:? Excellent.? ? Lung bases:? Mild dependent atelectasis can be seen at the lung bases, right worse than left. Heart:? There is a moderate pericardial effusion.? Heart size is within normal limits. ? ? ABDOMEN: Liver:? Simple appearing nonenhancing water density liver cysts are seen. The liver is normal in size and demonstrates no suspicious lesions. Gallbladder:? Unremarkable.? ? Biliary ducts:? Unremarkable.? ? Pancreas:? Unremarkable.? ? Spleen:? Unremarkable.? ? Adrenal Glands:? Unremarkable.? ? Kidneys and Ureters:? Unremarkable.? ? ? Stomach and Bowel:? Generalized wall thickening and hyperenhancement can be seen throughout the colon from the cecum through the rectum.? Moderate surrounding inflammatory changes are seen. No dilated loops of small bowel are seen.? However, the small bowel loops demonstrate generalized hyperenhancement. No significant gastric abnormality is seen. Peritoneum:? No findings of abscess can be seen.? A small amount of ascites is seen.? No free air.? ? Ventral Wall: ? No hernia.? Abdominal Nodes:? No retroperitoneal or mesenteric adenopathy by size criteria.? Vessels:? Aorta and inferior vena cava are normal in size.? Atherosclerotic calcification is noted.? ? PELVIS: Pelvic Organs:? Unremarkable.? ? Bladder:? Unremarkable.? ? Pelvic Nodes: No enlarged lymph nodes.? Miscellaneous:? There is a prominent fat containing left inguinal hernia seen.? A mild right fat containing inguinal hernia is also seen. ? Bones:? Focal degenerative change is seen involving the L4-L5 and L5-S1 levels.? Milder degenerative changes are seen elsewhere.? Mild levoconvex scoliotic curvature is noted.? Grade 1 L4-5 anterolisthesis is seen, without associated pars defects.? ? ? IMPRESSION:? ? Prominent wall thickening and hyperenhancement can be seen throughout the colon.? Surrounding inflammatory changes are seen.? Please correlate with infectious and inflammatory causes of colitis, including C difficile colitis. ? The small bowel is also abnormal, with normal size loops, yet with hyperenhancement.? Associated enteritis is suspected. ? There is a small amount of ascites. ? A moderate pericardial effusion is noted.? In this patient with a given history of a fall, no acute displaced fracture is identified. ? ? ? Incidental note is made of: Bilateral fat containing inguinal hernias are seen, left worse than right. Focal L4-L5 and L5-S1 degenerative change ? Dictated by: Santino Quintana M.D. on 08/06/2021 at 8:37 ? ? Approved by: Santino Quintana M.D. on 08/06/2021 at 8:44?? ECG Data Attestation: I personally reviewed and interpreted this ECG as follows: Interpretation: Sinus tachycardia with occasional PVC. Rate of 111, NJ 130, QRS of [address]TC [address] elevation depression noted. MDM Narrative Medical decision making narrative: This is a 76-year-old male comes to the emergency department with ground level fall. Patient is unable to give much history secondary to his neuro cognitive deficits but his states initially she thought it was secondary to starting sertraline and decreasing his venlafaxine but has been persistent he has been worsening over the last several days. Patient is DNR/DNI but they do request fluids, antibiotics and intervention even potentially surgery if needed. Patient is found to be septic with tachycardia, elevated white count and lactate, he is not hypotensive at this time but CT does show colitis he has had diarrhea C diff toxin will be sent, IV antibiotics were initiated, patient had initial 1L bolus and had 30 cc/kilos bolus initiated, plan to send C diff as he has colitis his CT although no prior history. DELANEY echevarria and hospitalist and I discussed the case and accepts for admission. Critical Care Time Critical Care Time Critical Care Time: Yes Total Critical Care Time: 35 Attestation: The high probability of a clinically significant, sudden or life threatening deterioration of the [cardiac, pulm] system(s) required my full and direct attention, intervention and personal management. The aggregate critical care time was [35] minutes. This time is in addition to time spent performing reported procedures but includes the following: [x] Data Review and interpretation [x] Patient assessment and monitoring of vital signs [x] Documentation [x] Medication orders and management Discharge Plan Departure Patient Disposition: Admitted As Inpatient Clinical Impression: Colitis, Sepsis, Acidosis, lactic Admit Date/Time: 08/06/21 10:20 Admit Provider: Joseph Hi
--- NOTE | 2021-08-06 09:07 | DI.CT.S_ITS ---
PROCEDURE: CT ABDOMEN PELVIS W CON INDICATIONS: diarrhea x 4 days. fall from bed. TECHNIQUE: After the administration of IV contrast, axial sections were acquired from the lung bases to the pubic symphysis. Coronal and sagittal reformats were performed. For radiation dose reduction, the following was used: automated exposure control, adjustment of mA and/or kV according to patient size. COMPARISON: [facility], CT, CT CHEST ABD PEL W CON, 12/24/2017, 10:50. [facility], CT, ABDOMEN/PELVIS WITH CONTRAST, 11/21/2011, 13:02. [facility], CT, CT HEAD/BRAIN WO CON, 08/06/2021, 9:17. [facility], CR, XR CHEST 1V, 08/06/2021, 9:02. [facility], CT, CT ABDOMEN PELVIS W CON, 05/25/2021, 7:21. FINDINGS: Image quality: Excellent. Lung bases: Mild dependent atelectasis can be seen at the lung bases, right worse than left. Heart: There is a moderate pericardial effusion. Heart size is within normal limits. ABDOMEN: Liver: Simple appearing nonenhancing water density liver cysts are seen. The liver is normal in size and demonstrates no suspicious lesions. Gallbladder: Unremarkable. Biliary ducts: Unremarkable. Pancreas: Unremarkable. Spleen: Unremarkable. Adrenal Glands: Unremarkable. Kidneys and Ureters: Unremarkable. Stomach and Bowel: Generalized wall thickening and hyperenhancement can be seen throughout the colon from the cecum through the rectum. Moderate surrounding inflammatory changes are seen. No dilated loops of small bowel are seen. However, the small bowel loops demonstrate generalized hyperenhancement. No significant gastric abnormality is seen. Peritoneum: No findings of abscess can be seen. A small amount of ascites is seen. No free air. Ventral Wall: No hernia. Abdominal Nodes: No retroperitoneal or mesenteric adenopathy by size criteria. Vessels: Aorta and inferior vena cava are normal in size. Atherosclerotic calcification is noted. PELVIS: Pelvic Organs: Unremarkable. Bladder: Unremarkable. Pelvic Nodes: No enlarged lymph nodes. Miscellaneous: There is a prominent fat containing left inguinal hernia seen. A mild right fat containing inguinal hernia is also seen. Bones: Focal degenerative change is seen involving the L4-L5 and L5-S1 levels. Milder degenerative changes are seen elsewhere. Mild levoconvex scoliotic curvature is noted. Grade 1 L4-5 anterolisthesis is seen, without associated pars defects. IMPRESSION: Prominent wall thickening and hyperenhancement can be seen throughout the colon. Surrounding inflammatory changes are seen. Please correlate with infectious and inflammatory causes of colitis, including C difficile colitis. The small bowel is also abnormal, with normal size loops, yet with hyperenhancement. Associated enteritis is suspected. There is a small amount of ascites. A moderate pericardial effusion is noted. In this patient with a given history of a fall, no acute displaced fracture is identified. Incidental note is made of: Bilateral fat containing inguinal hernias are seen, left worse than right. Focal L4-L5 and L5-S1 degenerative change Dictated by: Santino Quintana M.D. on 08/06/2021 at 8:37 Approved by: Santino Quintana M.D. on 08/06/2021 at 8:44
--- NOTE | 2021-08-06 09:07 | DI.RAD.S_ITS ---
PROCEDURE: XR CHEST 1V INDICATIONS: diarrhea x 4 days. fall from bed. TECHNIQUE: One view of the chest was acquired. COMPARISON: [facility], CR, XR CHEST 1 VIEW, 03/02/2018, 21:06. [facility], CR, XR CHEST 1V, 01/30/2018, 5:48. [facility], CT, CT HEAD/BRAIN WO CON, 08/06/2021, 9:17. [facility], CT, CT ABDOMEN PELVIS W CON, 08/06/2021, 9:17. [facility], CR, XR CHEST 1V, 05/25/2021, 5:51. FINDINGS: Surgical changes and devices: None. Lungs and pleura: On this semiupright portable chest examination, no large pneumothorax or large pleural effusions are seen. Mild, streaky opacities are seen at the lung bases. Low lung volumes are noted. This causes a crowded appearance to the lung markings and limits evaluation. Mediastinum: Mediastinal contours appear normal. Heart size is normal. Bones and chest wall: No suspicious bony lesions. Age-appropriate bony degenerative changes are seen. Overlying soft tissues appear unremarkable. IMPRESSION: Low lung volumes, with likely atelectasis at the lung bases. Dictated by: Santino Quintana M.D. on 08/06/2021 at 8:33 Approved by: Santino Quintana M.D. on 08/06/2021 at 8:34
--- NOTE | 2021-08-06 09:08 | DI.CT.S_ITS ---
PROCEDURE: CT HEAD/BRAIN WO CON INDICATIONS: diarrhea x 4 days. fall from bed. TECHNIQUE: Noncontrast 4.5 mm thick angled axial sections acquired from the foramen magnum to the vertex, with coronal and sagittal reformats. For radiation dose reduction, the following was used: automated exposure control, adjustment of mA and/or kV according to patient size. COMPARISON: [facility], CT, CT ANGIO HEAD AND NECK, 07/31/2020, 19:39. [facility], CT, CT STROKE, 07/31/2020, 19:33. [facility], MR, MR STROKE, 08/01/2020, 14:45. [facility], CT, CT ABDOMEN PELVIS W CON, 08/06/2021, 9:17. [facility], CR, XR CHEST 1V, 08/06/2021, 9:02. [facility], CT, CT HEAD/BRAIN WO CON, 05/25/2021, 5:44. FINDINGS: Image quality: Excellent. CSF spaces: Basal cisterns are patent. No extra-axial fluid collections. The ventricles are symmetric in size and shape. Brain: No intracranial bleeds or masses. There is cerebral volume loss for age, with resultant ventricular and sulcal prominence. There are periventricular and deep white matter chronic small vessel ischemic changes. There is intracranial internal carotid artery atherosclerosis. Skull and face: Calvarium and visualized facial bones appear intact, without suspicious lesions. Sinuses: Visualized sinuses and mastoids are clear. IMPRESSION: Unremarkable intracranial study for age, without findings of acute hemorrhage or other acute intracranial abnormality. Macrosomia Dictated by: Santino Quintana M.D. on 08/06/2021 at 8:35 Approved by: Santino Quintana M.D. on 08/06/2021 at 8:37
[2021-08-06 09:23] LABS: INR 1.3 (0.9-1.3); Prothrombin Time 15.2 SECONDS (10.1-12.7)
[2021-08-06 09:24] LABS: Hematocrit 55.4 % (41-53); Hemoglobin 18.8 g/dL (13.5-17.5); Mean Corpuscular Hemoglobin 33.9 PG (26-34); Mean Corpuscular Volume 99.7 fL (80-100); Platelet Count 278 X10^3/uL (150-400); Red Blood Cell Count 5.56 X10^6/uL (4.5-5.9); Red Cell Distribution Width 16.1 % (11.6-14.8)
[2021-08-06 09:26] LABS: Add Manual Diff / Slide Review YES; PTT Partial Thromboplastin Tim 29 SECONDS (26.4-36.2); White Blood Cell Count 47.5 X10^3/uL (4.5-11.0)
[2021-08-06 09:28] LABS: Alanine Aminotransferase 26 IU/L (<50); Albumin 3.2 g/dL (3.5-5.0); Alkaline Phosphatase 108 U/L (38-126); Aspartate Aminotransferase 73 IU/L (17-59); BUN Creatinine Ratio 25.2 (6-22); Bilirubin Total 0.4 mg/dL (0.2-1.3); Blood Urea Nitrogen 29 mg/dL (9-20); Calcium 8.9 mg/dL (8.4-10.2); Carbon Dioxide 21 mmol/L (22-32); Chloride 97 mmol/L (98-107); Estimated Glomerular Filt Rate > 60.0 mL/min (>60); Ethanol (ETOH) < 10 mg/dL; Globulin 3.2 g/dL (1.7-4.1); Glucose 179 mg/dL (80-110); HEMOLYSIS < 15 (0-50); Sodium 131 mmol/L (137-145); Total Protein 6.4 g/dL (6.3-8.2)
[2021-08-06 09:50] LABS: Lactate (Lactic Acid) 5.3 mmol/L (0.7-2.1)
[2021-08-06 10:01] LABS: Neutrophils Absolute Manual 38950 /uL (3000-5900); Total Cells Counted 100
[2021-08-06 10:02] LABS: Anisocytosis 1+
[2021-08-06 10:04] LABS: Toxic Granulation Present
[2021-08-06] MEDS: LACTATED RINGERS 680.39 ML IV (10:09)
[2021-08-06] MEDS: SODIUM CHLORIDE 0.9% 1,000 ML 1000 ML IV ×2 (10:09→13:09)
[2021-08-06] MEDS: PIPERACILLIN/TAZO 4.5 GM in SODIUM CHLORIDE 0.9% 100 ML 200 ML IV (10:18)
[2021-08-06 11:15] LABS: Reflexed Lactate in 2 Hours Y
--- NOTE | 2021-08-06 11:22 | PC.NURSE ---
changed pt brief. not enough to collect specimen for c.diff sample. small amount of liquid fluid.
[2021-08-06 11:25] LABS: Influenza A - CEPHEID Flu A NEGATIVE (NEGATIVE); Influenza B - CEPHEID Flu B NEGATIVE (NEGATIVE); Respiratory Syncytial Virus Negative (Negative)
[2021-08-06 11:30] LABS: COVID-19 CEPHEID PCR (VTM/NP) Negative (Negative)
--- NOTE | 2021-08-06 11:39 | PC.NURSE ---
clarified order with Dr. Candelaria about fluid. she would like a total of 2,041ml per septic protocol. first 1000 to be bolus of NaCl 0.9% as orginally ordered. The rest will be LR 1,041ml.
[2021-08-06 11:56] LABS: Lactate 2HR (Lactic Acid Rflx) 3.6 mmol/L (0.7-2.1)
[2021-08-06 12:49] LABS: Appearance Urine UA CLEAR; Bilirubin Urine UA NEGATIVE (NEGATIVE); Color Urine UA YELLOW; Glucose Urine UA NEGATIVE (Negative); Ketones Urine UA TRACE (NEGATIVE); Leukocyte Esterase Urine UA NEGATIVE (NEGATIVE); Nitrite Urine UA NEGATIVE (Negative); Occult Blood Urine UA TRACE-INTACT (Negative); Protein Urine UA 1+ (Negative); Specific Gravity Urine UA 1.015 (1.000-1.035); Urobilinogen Urine UA 0.2 E.U./dL (0.2); pH Urine UA 5.5 (4.5-8.0)
[2021-08-06 13:04] LABS: Bacteria Urine None Seen; Culture Indicated Urine Cult Not Indicated; Hyaline Casts Urine 5-10/LPF; Mucus Urine 2+ (Negative); RBC Urine 0-1/HPF (0-5/HPF); Squamous Epithelial Cell Urine None Seen (0-5/HPF); WBC Urine 0-1/HPF (0-5/HPF)
[2021-08-06] MEDS: VANCOMYCIN 125 MG CAPSULE 500 MG PO ×2 (13:09→18:33)
[2021-08-06 13:16] LABS: Clostridium Difficile Tox PCR Positive for C. diff (Negative)
--- NOTE | 2021-08-06 14:04 | PM.DDS.1 ---
Discharge Summary History of Illness Chief Complaint: Weakness Narrative: Mr. 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 Patient had recently been in the process of transitioning from venlafaxine to sertraline. Approximately four days ago he began developing diarrhea. He was not having fevers/chills, nausea, vomiting, or significant abdominal pain. He has dark stools, but not frankly bloody stools. He was having diarrhea 15-20x a day so was brought in to the hospital In the ED workup was done, vitals notable for tachycardia. Labs notable for WBC 47.5, hgb 18.8. Na 131, creatinine 1.15. Lactate 5.3. CT head showed no acute process. Chest xray showed on acute process. CT abdomen showed prominent wall thickening throughout the colon and into the small bowel. Small ascites and moderate pericardial effusion were noted as well. He was ordered for IV fluids and zosyn and admitted for further treatment. Hospital Course Date of Admission: 08/06/21 10:20 Primary care provider: Alex Cartwright MD Discharge provider: Dr. Hi Discharge Diagnosis: 1. Septic shock 2. Severe C diff pancolitis 3. Acute hypoxemic respiratory failure 4. Seizure disorder 5. History of CVA Hospital Course: Mr. Abdul was admitted with sepsis from severe C. diff pancolitis. He was started on high dose oral vancomycin and IV flagyl. However despite these measures he became severely hypotensive, hypoxemic, and continued to have profuse diarrhea. He was ordered for multiple boluses with continued worsening of his blood pressure, and he was started on pressors for blood pressure support. After discussion with his , it was understood that further treatment measures and escalating care were not within his goals of care. She agreed he would want comfort focus care, and this was started the evening of 08/06. He at 2205. Objective Labs Result Diagrams: 08/06/21 18:53 08/06/21 18:53 Labs: Laboratory Results - last 24 hr 08/06/21 08/06/21 08/06/21 15:38 18:53 18:53 WBC 45.9 H* RBC 5.87 Hgb 19.7 H Hct 60.3 H* MCV 102.8 H D MCH 33.6 MCHC 32.6 RDW 16.6 H Plt Count 270 PT 16.7 H INR 1.5 H APTT 33 Fibrinogen 747 H Sodium Potassium Chloride Carbon Dioxide BUN Creatinine Estimated GFR BUN/Creatinine Ratio Glucose Lactate 4.9 H* Calcium Total Bilirubin AST ALT Alkaline Phosphatase Total Protein Albumin Globulin Albumin/Globulin Ratio 08/06/21 08/06/21 18:53 18:53 WBC RBC Hgb Hct MCV MCH MCHC RDW Plt Count PT INR APTT Fibrinogen Sodium 137 Potassium 4.5 Chloride 104 Carbon Dioxide 11 L BUN 32 H Creatinine 1.52 H Estimated GFR 44.7 L BUN/Creatinine Ratio 21.1 Glucose 123 H Lactate 9.7 H* Calcium 8.2 L Total Bilirubin 0.5 AST 103 H ALT 40 Alkaline Phosphatase 106 Total Protein 5.8 L Albumin 2.8 L Globulin 3.0 Albumin/Globulin Ratio 0.9 L
[2021-08-06] MEDS: QUETIAPINE 100 MG TABLET PO (14:05)
[2021-08-06] MEDS: SODIUM CHLORIDE 0.9% 1,000 ML 100 ML IV (14:55)
[2021-08-06] MEDS: metroNIDAZOLE 500 MG/100 ML PIGGYBACK 100 MG IV (14:55)
--- NOTE | 2021-08-06 16:11 | P.HP_ITS ---
History of Present Illness History of Present Illness Date Patient Seen: 08/06/21 Time Patient Seen: 12:00 Chief complaint: Diarrhea/weakness Narrative: Mr. 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 Patient had recently been in the process of transitioning from venlafaxine to sertraline. Approximately four days ago he began developing diarrhea. He was not having fevers/chills, nausea, vomiting, or significant abdominal pain. He has dark stools, but not frankly bloody stools. He was having diarrhea 15-20x a day so was brought in to the hospital In the ED workup was done, vitals notable for tachycardia. Labs notable for WBC 47.5, hgb 18.8. Na 131, creatinine 1.15. Lactate 5.3. CT head showed no acute process. Chest xray showed on acute process. CT abdomen showed prominent wall thickening throughout the colon and into the small bowel. Small ascites and moderate pericardial effusion were noted as well. He was ordered for IV fluids and zosyn and admitted for further treatment. 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 Social History: household members spouse Safety & Behavioral: Feels Safe in Current Yes Environment Been Physically Hurt or No Threatened By a Person Tobacco & Substance use: Tobacco type cigarettes Smoking Status Former smoker alcohol intake former alcohol intake frequency 0-2 drinks per day Substance Use Type does not use Meds Home Medications and Allergies Home Medications Medication Instructions Recorded Confirmed Type MULTIVITAMIN (#UNI-STRESS) 1 cap PO QDAY #0 11/14/11 08/06/21 History melatonin 3 mg tablet 3 mg PO HS PRN #0 07/15/17 08/06/21 History ascorbic acid (vitamin C) 500 mg 500 mg PO DAILY cap 11/03/17 08/06/21 History capsule cholecalciferol (vitamin D3) 25 1,000 unit PO DAILY 11/03/17 08/06/21 History mcg (1,000 unit) capsule vitamin E (dl, acetate) 450 mg 1,000 unit PO DAILY 12/15/19 08/06/21 History (1,000 unit) capsule aspirin 81 mg tablet,delayed 81 mg PO DAILY #30 tab 08/01/20 08/06/21 Rx release clopidogrel 75 mg tablet 75 mg PO DAILY #21 tab 08/01/20 08/06/21 Rx quetiapine 100 mg tablet 100 mg PO BID #180 tab 06/08/21 08/06/21 Rx venlafaxine 150 mg 300 mg PO QAM #180 cap 06/08/21 08/06/21 Rx capsule,extended release 24 hr divalproex 500 mg tablet,delayed 500 mg PO BID #180 tab 07/13/21 08/06/21 Rx release sertraline 100 mg tablet 100 mg PO DAILY #60 tab 07/17/21 08/06/21 Rx sertraline 50 mg tablet 50 mg PO DAILY #46 tab 07/17/21 07/17/21 Rx venlafaxine 37.5 mg 37.5 mg PO QAM #7 cap 07/17/21 07/17/21 Rx capsule,extended release 24 hr venlafaxine 75 mg capsule,extended 75 mg PO QAM #42 cap 07/17/21 07/17/21 Rx release 24 hr atorvastatin 80 mg tablet 80 mg PO BEDTIME #90 tab 07/27/21 08/06/21 Rx Allergies Allergy/AdvReac Type Severity Reaction Status Date / Time No Known Drug Allergies Allergy Verified 07/13/21 12:52 Review of Systems Review of Systems Narrative: 14 systems reviewed and negative aside from what is noted in HPI Exam Vital Signs (past 8 hours): - 08/06/21 08:53 08/06/21 08:54 08/06/21 09:00 Temperature Pulse Rate 67 114 H 114 H Respiratory Rate 22 27 H 24 Blood Pressure 126/92 H 122/85 Pulse Oximetry 89 L 97 92 08/06/21 09:05 08/06/21 09:30 08/06/21 10:00 Temperature 96.7 F L Pulse Rate 112 H 100 H 112 H Respiratory Rate 21 19 26 H Blood Pressure 122/85 Pulse Oximetry 97 95 93 08/06/21 10:01 08/06/21 10:15 08/06/21 10:30 Temperature Pulse Rate 111 H 110 H 105 H Respiratory Rate 24 19 21 Blood Pressure 157/99 H 144/89 H 133/80 Pulse Oximetry 95 94 94 08/06/21 10:46 08/06/21 11:00 08/06/21 11:15 Temperature Pulse Rate 102 H 101 H 102 H Respiratory Rate 20 20 21 Blood Pressure 140/79 128/79 134/85 Pulse Oximetry 92 93 95 08/06/21 11:30 08/06/21 12:04 Temperature Pulse Rate 98 H 107 H Respiratory Rate 22 20 Blood Pressure 130/83 137/89 Pulse Oximetry 94 92 Oxygen Delivery Method Room Air Oxygen Flow Rate 0 Narrative Exam Narrative: GEN: fatigued HEENT: dry mucous membranes, PERRL NECK: trachea midline, no JVD CV: tachycardic, no murmurs PULM: clear bilaterally, no wheezes, rhonchi, rales ABD: soft, mild tenderness, no rebound/guarding, decreased bowel sounds, distended EXT: mottled and cool extremities NEURO: awake, alert, no focal deficits Objective Labs Result Diagrams: 08/06/21 09:05 08/06/21 09:05 Labs: Laboratory Results - last 24 hr 08/06/21 08/06/21 08/06/21 09:05 09:05 09:05 WBC 47.5 H* RBC 5.56 Hgb 18.8 H Hct 55.4 H MCV 99.7 MCH 33.9 MCHC 34.0 RDW 16.1 H Plt Count 278 Neut % (Auto) Not Reportable Lymph % (Auto) Not Reportable [place] % (Auto) Not Reportable Eos % (Auto) Not Reportable Baso % (Auto) Not Reportable Lymph # (Auto) Not Reportable [place] # (Auto) Not Reportable Baso # (Auto) Not Reportable Total Counted 100 Seg Neutrophils % 35.0 L Band Neutrophils % 47.0 H Lymphocytes % (Manual) 8.0 L Monocytes % (Manual) 2.0 Metamyelocytes % 4.0 H Myelocytes % 4.0 H Neutrophils # (Manual) 15328 H Toxic Granulation Present H RBC Morphology See below Anisocytosis 1+ H PT 15.2 H INR 1.3 APTT 29 D Sodium 131 L Potassium 4.0 Chloride 97 L Carbon Dioxide 21 L BUN 29 H Creatinine 1.15 Estimated GFR > 60.0 BUN/Creatinine Ratio 25.2 H Glucose 179 H Lactate Calcium 8.9 Total Bilirubin 0.4 AST 73 H ALT 26 Alkaline Phosphatase 108 Total Protein 6.4 Albumin 3.2 L Globulin 3.2 Albumin/Globulin Ratio 1.0 Urine Color Urine Appearance Urine pH Ur Specific [place] Urine Protein Urine Glucose (UA) Urine Ketones Urine Occult Blood Urine Nitrate Urine Bilirubin Urine Urobilinogen Ur Leukocyte Esterase Urine RBC Urine WBC Ur Squamous Epith Cells Urine Bacteria Hyaline Casts Urine Mucus Ur Culture Indicated? Ethyl Alcohol < 10 C. difficile Tox (PCR) SARS-CoV-2 (PCR) Influenza A (RT-PCR) Influenza B (RT-PCR) RSV (PCR) Blood Type Antibody Screen 08/06/21 08/06/21 08/06/21 09:05 09:05 10:43 WBC RBC Hgb Hct MCV MCH MCHC RDW Plt Count Neut % (Auto) Lymph % (Auto) [place] % (Auto) Eos % (Auto) Baso % (Auto) Lymph # (Auto) [place] # (Auto) Baso # (Auto) Total Counted Seg Neutrophils % Band Neutrophils % Lymphocytes % (Manual) Monocytes % (Manual) Metamyelocytes % Myelocytes % Neutrophils # (Manual) Toxic Granulation RBC Morphology Anisocytosis PT INR APTT Sodium Potassium Chloride Carbon Dioxide BUN Creatinine Estimated GFR BUN/Creatinine Ratio Glucose Lactate 5.3 H* Calcium Total Bilirubin AST ALT Alkaline Phosphatase Total Protein Albumin Globulin Albumin/Globulin Ratio Urine Color Urine Appearance Urine pH Ur Specific [place] Urine Protein Urine Glucose (UA) Urine Ketones Urine Occult Blood Urine Nitrate Urine Bilirubin Urine Urobilinogen Ur Leukocyte Esterase Urine RBC Urine WBC Ur Squamous Epith Cells Urine Bacteria Hyaline Casts Urine Mucus Ur Culture Indicated? Ethyl Alcohol C. difficile Tox (PCR) SARS-CoV-2 (PCR) Negative Influenza A (RT-PCR) Flu a negative Influenza B (RT-PCR) Flu b negative RSV (PCR) Negative Blood Type O Positive Antibody Screen Negative 08/06/21 08/06/21 08/06/21 11:37 12:15 12:32 WBC RBC Hgb Hct MCV MCH MCHC RDW Plt Count Neut % (Auto) Lymph % (Auto) [place] % (Auto) Eos % (Auto) Baso % (Auto) Lymph # (Auto) [place] # (Auto) Baso # (Auto) Total Counted Seg Neutrophils % Band Neutrophils % Lymphocytes % (Manual) Monocytes % (Manual) Metamyelocytes % Myelocytes % Neutrophils # (Manual) Toxic Granulation RBC Morphology Anisocytosis PT INR APTT Sodium Potassium Chloride Carbon Dioxide BUN Creatinine Estimated GFR BUN/Creatinine Ratio Glucose Lactate 3.6 H Calcium Total Bilirubin AST ALT Alkaline Phosphatase Total Protein Albumin Globulin Albumin/Globulin Ratio Urine Color Yellow Urine Appearance Clear Urine pH 5.5 Ur Specific [place] 1.015 Urine Protein 1+ H Urine Glucose (UA) Negative Urine Ketones Trace H Urine Occult Blood Trace-intact Urine Nitrate Negative Urine Bilirubin Negative Urine Urobilinogen 0.2 Ur Leukocyte Esterase Negative Urine RBC 0-1/hpf Urine WBC 0-1/hpf Ur Squamous Epith Cells None seen Urine Bacteria None seen Hyaline Casts 5-10/lpf Urine Mucus 2+ H Ur Culture Indicated? Cult not indicated Ethyl Alcohol C. difficile Tox (PCR) Positive for c. diff H SARS-CoV-2 (PCR) Influenza A (RT-PCR) Influenza B (RT-PCR) RSV (PCR) Blood Type Antibody Screen Assessment & Plan Assessment & Plan narrative: Mr. Abdul is a 76M who presents with diarrhea found to have sepsis and C. diff colitis. 1. Severe sepsis from severe C. diff colitis, acute -patient presented tachycardic, with elevated lactate, leukocytosis and BHAGRAVI -etiology is C. diff infection, c dif positive -CT shows pancolitis -started on high dose oral vancomycin and IV flagyl, did get 30cc/kg IV fluids -patient showed improvement with IV fluids improving lactate from 5.3 to 3.6, and tachycardia showing improving -continue aggressive IV fluids, patient continues to have frequent bowel movements -discussed with patient and family and patient has limited goals of care, currently any surgical intervention is not within goals of care 2. Chronic seizure disorder -continue depakote 3. Severe depression -continue venlafaxine, seroquel -sertraline has been stopped 4. History of CVA -continue asa, plavix, statin CODE: DNR/DNI Proxy: Shari Abdul, I have utilized all available resources to reconcile the patient's home medications Time Spent With Patient Critical Care time: I spent a total of [] minutes of critical care time on this patient's care today; this time is exclusive of procedural time.
[2021-08-06 16:36] LABS: Lactate (Lactic Acid) 4.9 mmol/L (0.7-2.1)
[2021-08-06] MEDS: LACTATED RINGERS 1,000 ML 1000 ML IV (16:56)
[2021-08-06 17:48] LABS: Reflexed Lactate in 2 Hours Y
[2021-08-06] MEDS: LORazepam 2 MG/ML INJ IV (19:04)
[2021-08-06 19:06] LABS: Hemoglobin 19.7 g/dL (13.5-17.5); Mean Corpuscular HGB Conc 32.6 % (30-36); Mean Corpuscular Hemoglobin 33.6 PG (26-34); Mean Corpuscular Volume 102.8 fL (80-100); Platelet Count 270 X10^3/uL (150-400); Red Blood Cell Count 5.87 X10^6/uL (4.5-5.9); Red Cell Distribution Width 16.6 % (11.6-14.8)
[2021-08-06 19:12] LABS: Hematocrit 60.3 % (41-53); White Blood Cell Count 45.9 X10^3/uL (4.5-11.0)
[2021-08-06] MEDS: NOREPINEPHRINE BITARTRATE/D5W 4 MG/250 ML PLAST..BAG 7.5 MG IV (19:15)
[2021-08-06 19:34] LABS: INR 1.5 (0.9-1.3); Prothrombin Time 16.7 SECONDS (10.1-12.7)
[2021-08-06 19:36] LABS: PTT Partial Thromboplastin Tim 33 SECONDS (26.4-36.2)
[2021-08-06] MEDS: LACTATED RINGERS 1,000 ML 150 ML IV (19:37)
[2021-08-06 19:38] LABS: Fibrinogen 747 mg/dL (211-428)
--- NOTE | 2021-08-06 19:57 | PC.NURSE ---
Event Note At approximately 1900 this RN at bedside, patient suddenly became dusky and unresponsive. Vitals taken, patient without BP, O2 saturations in the 60's. RT immediately at bedside and patient placed on non-rebreather. This RN called patient due to sudden change in patient condition, patient active DNR/DNI status. MD called to bedside, verbals orders for IV Ativan given for suspected seizure. Minor change in LOC, patient with unpalpable peripheral pulses, no BP, verbal orders to initiate IV norepinephrine. IV drip initiated, titrated per protocol by this RN, unable to obtain BP though titration, verbal MD order to uptitrate drip from 6mcg/min to 10mcg/min. BP retaken and able to obtain BP, no change in patient LOC. Patient's arrived at bedside, MD updated on patient condition. The decision was made to change patient to comfort care measures and withdraw treatment. Report given to beater and pulper feeder RN, all questions/concerns addressed.
--- NOTE | 2021-08-06 20:01 | PM.PN.1 ---
Subjective Subjective Date Patient Seen: 08/06/21 Time Patient Seen: 19:00 Interval history: Called to patient room for significant change in patient's clinical status. He was in severe respiratory distress, hypoxemi, blood pressure unable to be obtained. Levophed started and blood pressure normalized, but patient remained severely altered and in respiratory failure. Placed on nonrebreather. Family was called in and severity of illness was discussed and she was made comfort measures. Exam Vital Signs (past 8 hours): - 08/06/21 12:04 08/06/21 16:14 08/06/21 19:27 Temperature 98.0 F Pulse Rate 107 H 84 Respiratory Rate 20 19 Blood Pressure 137/89 152/90 H 139/93 H Pulse Oximetry 92 92 08/06/21 19:33 Temperature Pulse Rate Respiratory Rate Blood Pressure 138/66 Pulse Oximetry Oxygen Delivery Method Room Air Oxygen Flow Rate 0 Narrative Exam Narrative: GEN: acutely ill, severe respiratory distress HEENT: dry mucous membranes, PERRL CV: tachycardic, no murmurs PULM: very poor air movement bilaterally, belly breating ABD: soft, mild tenderness, no rebound/guarding, decreased bowel sounds, distended EXT: mottled and cool extremities NEURO: unresponsive Objective Labs Result Diagrams: 08/06/21 18:53 08/06/21 09:05 Labs: Laboratory Results - last 24 hr 08/06/21 08/06/21 08/06/21 09:05 09:05 09:05 WBC 47.5 H* RBC 5.56 Hgb 18.8 H Hct 55.4 H MCV 99.7 MCH 33.9 MCHC 34.0 RDW 16.1 H Plt Count 278 Neut % (Auto) Not Reportable Lymph % (Auto) Not Reportable [place] % (Auto) Not Reportable Eos % (Auto) Not Reportable Baso % (Auto) Not Reportable Lymph # (Auto) Not Reportable [place] # (Auto) Not Reportable Baso # (Auto) Not Reportable Total Counted 100 Seg Neutrophils % 35.0 L Band Neutrophils % 47.0 H Lymphocytes % (Manual) 8.0 L Monocytes % (Manual) 2.0 Metamyelocytes % 4.0 H Myelocytes % 4.0 H Neutrophils # (Manual) 58290 H Toxic Granulation Present H RBC Morphology See below Anisocytosis 1+ H PT 15.2 H INR 1.3 APTT 29 D Fibrinogen Sodium 131 L Potassium 4.0 Chloride 97 L Carbon Dioxide 21 L BUN 29 H Creatinine 1.15 Estimated GFR > 60.0 BUN/Creatinine Ratio 25.2 H Glucose 179 H Lactate Calcium 8.9 Total Bilirubin 0.4 AST 73 H ALT 26 Alkaline Phosphatase 108 Total Protein 6.4 Albumin 3.2 L Globulin 3.2 Albumin/Globulin Ratio 1.0 Urine Color Urine Appearance Urine pH Ur Specific [place] Urine Protein Urine Glucose (UA) Urine Ketones Urine Occult Blood Urine Nitrate Urine Bilirubin Urine Urobilinogen Ur Leukocyte Esterase Urine RBC Urine WBC Ur Squamous Epith Cells Urine Bacteria Hyaline Casts Urine Mucus Ur Culture Indicated? Ethyl Alcohol < 10 C. difficile Tox (PCR) SARS-CoV-2 (PCR) Influenza A (RT-PCR) Influenza B (RT-PCR) RSV (PCR) Blood Type Antibody Screen 08/06/21 08/06/21 08/06/21 09:05 09:05 10:43 WBC RBC Hgb Hct MCV MCH MCHC RDW Plt Count Neut % (Auto) Lymph % (Auto) [place] % (Auto) Eos % (Auto) Baso % (Auto) Lymph # (Auto) [place] # (Auto) Baso # (Auto) Total Counted Seg Neutrophils % Band Neutrophils % Lymphocytes % (Manual) Monocytes % (Manual) Metamyelocytes % Myelocytes % Neutrophils # (Manual) Toxic Granulation RBC Morphology Anisocytosis PT INR APTT Fibrinogen Sodium Potassium Chloride Carbon Dioxide BUN Creatinine Estimated GFR BUN/Creatinine Ratio Glucose Lactate 5.3 H* Calcium Total Bilirubin AST ALT Alkaline Phosphatase Total Protein Albumin Globulin Albumin/Globulin Ratio Urine Color Urine Appearance Urine pH Ur Specific [place] Urine Protein Urine Glucose (UA) Urine Ketones Urine Occult Blood Urine Nitrate Urine Bilirubin Urine Urobilinogen Ur Leukocyte Esterase Urine RBC Urine WBC Ur Squamous Epith Cells Urine Bacteria Hyaline Casts Urine Mucus Ur Culture Indicated? Ethyl Alcohol C. difficile Tox (PCR) SARS-CoV-2 (PCR) Negative Influenza A (RT-PCR) Flu a negative Influenza B (RT-PCR) Flu b negative RSV (PCR) Negative Blood Type O Positive Antibody Screen Negative 08/06/21 08/06/21 08/06/21 11:37 12:15 12:32 WBC RBC Hgb Hct MCV MCH MCHC RDW Plt Count Neut % (Auto) Lymph % (Auto) [place] % (Auto) Eos % (Auto) Baso % (Auto) Lymph # (Auto) [place] # (Auto) Baso # (Auto) Total Counted Seg Neutrophils % Band Neutrophils % Lymphocytes % (Manual) Monocytes % (Manual) Metamyelocytes % Myelocytes % Neutrophils # (Manual) Toxic Granulation RBC Morphology Anisocytosis PT INR APTT Fibrinogen Sodium Potassium Chloride Carbon Dioxide BUN Creatinine Estimated GFR BUN/Creatinine Ratio Glucose Lactate 3.6 H Calcium Total Bilirubin AST ALT Alkaline Phosphatase Total Protein Albumin Globulin Albumin/Globulin Ratio Urine Color Yellow Urine Appearance Clear Urine pH 5.5 Ur Specific [place] 1.015 Urine Protein 1+ H Urine Glucose (UA) Negative Urine Ketones Trace H Urine Occult Blood Trace-intact Urine Nitrate Negative Urine Bilirubin Negative Urine Urobilinogen 0.2 Ur Leukocyte Esterase Negative Urine RBC 0-1/hpf Urine WBC 0-1/hpf Ur Squamous Epith Cells None seen Urine Bacteria None seen Hyaline Casts 5-10/lpf Urine Mucus 2+ H Ur Culture Indicated? Cult not indicated Ethyl Alcohol C. difficile Tox (PCR) Positive for c. diff H SARS-CoV-2 (PCR) Influenza A (RT-PCR) Influenza B (RT-PCR) RSV (PCR) Blood Type Antibody Screen 08/06/21 08/06/21 08/06/21 15:38 18:53 18:53 WBC 45.9 H* RBC 5.87 Hgb 19.7 H Hct 60.3 H* MCV 102.8 H D MCH 33.6 MCHC 32.6 RDW 16.6 H Plt Count 270 Neut % (Auto) Lymph % (Auto) [place] % (Auto) Eos % (Auto) Baso % (Auto) Lymph # (Auto) [place] # (Auto) Baso # (Auto) Total Counted Seg Neutrophils % Band Neutrophils % Lymphocytes % (Manual) Monocytes % (Manual) Metamyelocytes % Myelocytes % Neutrophils # (Manual) Toxic Granulation RBC Morphology Anisocytosis PT 16.7 H INR 1.5 H APTT 33 Fibrinogen 747 H Sodium Potassium Chloride Carbon Dioxide BUN Creatinine Estimated GFR BUN/Creatinine Ratio Glucose Lactate 4.9 H* Calcium Total Bilirubin AST ALT Alkaline Phosphatase Total Protein Albumin Globulin Albumin/Globulin Ratio Urine Color Urine Appearance Urine pH Ur Specific [place] Urine Protein Urine Glucose (UA) Urine Ketones Urine Occult Blood Urine Nitrate Urine Bilirubin Urine Urobilinogen Ur Leukocyte Esterase Urine RBC Urine WBC Ur Squamous Epith Cells Urine Bacteria Hyaline Casts Urine Mucus Ur Culture Indicated? Ethyl Alcohol C. 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 Social History household members: spouse Smoking Status: Former smoker alcohol intake: former Assessment & Plan Assessment & Plan narrative: Mr. Abdul is a 76M who presents with diarrhea found to have sepsis and C. diff colitis. 1. Septic shock from severe C. diff colitis and respiratory failure hypoxemic, acute -patient presented tachycardic, with elevated lactate, leukocytosis and BHARGAVI -etiology is C. diff infection, c dif positive -CT shows pancolitis -started on high dose oral vancomycin and IV flagyl, did get 30cc/kg IV fluids -patient showed improvement with IV fluids improving lactate from 5.3 to 3.6, and tachycardia showing improving -continue aggressive IV fluids, patient continues to have frequent bowel movements -discussed with patient and family and patient has limited goals of care, currently any surgical intervention is not within goals of care Patient had severe decompensation developing respiratory failure and septic shock. After discussion with family patient was made comfort measures per his previously stated wishes. Time Spent With Patient Critical Care time: I spent a total of [] minutes of critical care time on this patient's care today; this time is exclusive of procedural time.
[2021-08-06] MEDS: MORPHINE 2 MG/ML INJ 4 MG IV ×2 (20:05→21:48)
[2021-08-06] MEDS: LORazepam 2 MG/ML INJ 1 MG IV ×2 (20:05→21:48)
[2021-08-06 20:09] LABS: Albumin 2.8 g/dL (3.5-5.0); Albumin Globulin Ratio 0.9 (1.0-2.8); Alkaline Phosphatase 106 U/L (38-126); Aspartate Aminotransferase 103 IU/L (17-59); BUN Creatinine Ratio 21.1 (6-22); Bilirubin Total 0.5 mg/dL (0.2-1.3); Blood Urea Nitrogen 32 mg/dL (9-20); Calcium 8.2 mg/dL (8.4-10.2); Carbon Dioxide 11 mmol/L (22-32); Chloride 104 mmol/L (98-107); Estimated Glomerular Filt Rate 44.7 mL/min (>60); Glucose 123 mg/dL (80-110); HEMOLYSIS 25 (0-50); Potassium 4.5 mmol/L (3.4-5.1); Sodium 137 mmol/L (137-145); Total Protein 5.8 g/dL (6.3-8.2)
[2021-08-06 20:15] LABS: Alanine Aminotransferase 40 IU/L (<50)
[2021-08-06 20:27] LABS: Lactate 2HR (Lactic Acid Rflx) 9.7 mmol/L (0.7-2.1)
--- NOTE | 2021-08-06 23:12 | PC.NURSE ---
1999- Patient is comfort care, at bedside, he is unresponsive, HR ST 115, RR 40s, unable to obtain SpO2, BP labile, Levophed gtt infusing at 9mcg/min, will titrate down when morphine and lorazepam take effect, given at 2004 and 2147, patient looks relaxed per , Levophed titrated off, NRB removed, patient at 2205. No belongings in room.
[2021-08-09 15:23] LABS: C difficie Toxins A and B, EIA Positive (Negative)
== END 2021-08-06 22:05 | disposition expired | DRG 871 ==
LOC: ED 10:17 → AC 10:21 → ICU 11:29
PROVIDERS: Admitting Provider Internal Medicine; Emergency Provider Emergency Medicine; PCP Internal Medicine; Referring Provider Emergency Medicine; Visit Provider Internal Medicine
DX: A41.9 Sepsis, unspecified organism (principal); R65.21 Severe sepsis with septic shock; J96.01 Acute respiratory failure with hypoxia; N17.9 Acute kidney failure, unspecified; A04.72 Enterocolitis due to Clostridium difficile, not specified as recurrent; G40.909 Epilepsy, unspecified, not intractable, without status epilepticus; F32.A Depression, unspecified; W06.XXXA Fall from bed, initial encounter; Z86.73 Personal history of transient ischemic attack (TIA), and cerebral infarction without residual deficits; Z66 Do not resuscitate; Z20.822 Contact with and (suspected) exposure to COVID-19; Z51.5 Encounter for palliative care; Z87.891 Personal history of nicotine dependence; Z79.01 Long term (current) use of anticoagulants
CPT/HCPCS: 0241U; 36415; 70450; 71045; 74177; 80053; 80320; 81001; 82272; 83605; 85007; 85025; 85027; 85384; 85610; 85730; 86850; 86900; 86901; 87040; 87324; 87493; 93005; 93010; 96365; 96375; 99284; 99291; J2060; J2270; J2543